=== PATIENT | male | born 1950 | race Caucasian/White ===

== ENCOUNTER 2020-12-20 09:25 | Inpatient (IN) | payer MEDICARE, OTHER ==
[2020-12-20] MEDS ORDERED: METOPROLOL TARTRATE 5 MG/5 ML INJ IV ONE (09:52)
[2020-12-20 10:23] LABS: Protime INR 1.34
[2020-12-20 10:26] LABS: Absolute Lymphocytes (CBC) 1.3 K/uL (0.7-4.9); Basophils % 1.1 % (0-1.3); Hematocrit 25.1 % (39.6-49.0); Lymphocytes % 23.4 % (15.3-44.8); MPV 7.5 fL (7.6-11.3); RBC Red Blood Cell Count 2.64 M/uL (4.33-5.43)
[2020-12-20 10:51] LABS: ALT/SGPT 35 U/L (12-78); AST/SGOT 77 U/L (15-37); Alkaline Phosphatase 65 U/L (45-117); BUN Blood Urea Nitrogen 23 mg/dL (7-18); Bicarbonate 23 mmol/L (21-32); Bilirubin Direct 0.7 mg/dL (0-0.2); Bilirubin Total 1.6 mg/dL (0.2-1.0); Glucose Level 85 mg/dL (74-106); NT PRO-BNP 153 pg/mL (<125); Potassium 4.7 mmol/L (3.5-5.1); Protein, Total 8.4 g/dL (6.4-8.2); Sodium Level 128 mmol/L (136-145); Troponin (Emerg Dept Use Only) < 0.02 ng/mL (0.0-0.045)
[2020-12-20] MEDS ORDERED: METOPROLOL TAR 25 MG TAB ONE (11:03)
[2020-12-20] MEDS ORDERED: DIGOXIN 0.25 MG/ML AMP ONE (11:12)
[2020-12-20] MEDS ORDERED: NA CHLORIDE 0.9% 500 ML ONE (11:13)
--- NOTE | 2020-12-20 11:22 | RAD REPORT ---
EXAM DESCRIPTION: RAD - Chest Single View - 12/20/2020 11:10 am CLINICAL HISTORY: ABDOMINAL DISTENTION Chest pain. COMPARISON: No comparisons FINDINGS: Portable technique limits examination quality. Mild interstitial pulmonary edema is seen. Linear opacities in the left lung base laterally probably represent atelectasis. The heart is prominent in size. A large hiatal hernia is likely present appear No displaced fractures.
--- NOTE | 2020-12-20 12:18 | EDPHYS ---
Physician Documentation [facility] Name: Sathya Ashby Age: 70 yrs Sex: Male : 1950 Arrival Date: 12/20/2020 Time: 09:40 Bed 8 Private MD: ED Physician Darnell Galicia HPI: 12/20 09:45 This 70 yrs old Male presents to ER via EMS with complaints of Shortness of cp Breath. 09:45 The patient has shortness of breath at rest. Onset: The symptoms/episode began/occurred cp gradually. Duration: The symptoms are continuous, and are steadily getting worse. The patient presents with abdominal distention that is diffuse. Onset: The symptoms/episode began/occurred gradually. Associated signs and symptoms: Pertinent negatives: chest pain, fever, vomiting. 09:45 Patient admits to not taking prescribed meds for the past month due to running out of cp prescribed Metoprolol and not being able to get samples of Eliquis. reports patient has been taking only OTC aspirin. Historical: - Allergies: 09:45 Darvocet-N 100; jt3 - Home Meds: 09:46 Unable to obtain [Active]; jt3 - PMHx: 09:45 Atrial fibrillation; jt3 09:46 Hypercholesterolemia; Hypertensive disorder; jt3 - Immunization history:: Adult Immunizations unknown. - Social history:: Smoking status: Patient denies any tobacco usage or history of. ROS: 09:50 Constitutional: Negative for body aches, chills, fever, poor PO intake. cp 09:50 Eyes: Negative for injury, pain, redness, and discharge. cp 09:50 ENT: Negative for ear pain, sore throat, difficulty swallowing, difficulty handling secretions. 09:50 Cardiovascular: Positive for edema, Negative for chest pain. 09:50 Respiratory: Positive for shortness of breath, at rest. Negative for cough, wheezing. 09:50 Abdomen/GI: Positive for abdominal distension, Negative for abdominal pain, vomiting, diarrhea, black/tarry stool, rectal bleeding. 09:50 Back: Negative for radiated pain. 09:50 Skin: Negative for cellulitis, rash. 09:50 Neuro: Negative for altered mental status, dizziness, headache, loss of consciousness, syncope, weakness. 09:50 All other systems are negative. Exam: 09:48 ECG was reviewed by the Attending Physician. cp 09:55 Constitutional: The patient appears in no acute distress, alert, awake, cp non-diaphoretic, non-toxic, well developed, well nourished, uncomfortable. 09:55 Head/Face: Normocephalic, atraumatic. cp 09:55 Eyes: Periorbital structures: appear normal, Pupils: equal, round, and reactive to light and accomodation, Extraocular movements: intact throughout, Conjunctiva: normal, no exudate, no injection, Sclera: no appreciated abnormality, Lids and lashes: appear normal, bilaterally. 09:55 ENT: External ear(s): are unremarkable, Nose: is normal, Mouth: Lips: dry, Oral mucosa: dry, Posterior pharynx: Airway: no evidence of obstruction, patent. 09:55 Neck: ROM/movement: is normal, is supple, without pain, no range of motions limitations, no meningismus. 09:55 Chest/axilla: Inspection: normal, Palpation: is normal, no crepitus, no tenderness. 09:55 Cardiovascular: Rate: tachycardic, Rhythm: irregular, Edema: ankle edema, that is moderate, JVD: is not appreciated. 09:55 Respiratory: the patient does not display signs of respiratory distress, Respirations: labored breathing, is not present, intercostal retractions, are absent, shallow respirations, that is mild, Breath sounds: decreased breath sounds, that are mild, diffuse, stridor, is not appreciated, wheezing: is not appreciated. 09:55 Abdomen/GI: Inspection: distension, that is severe, Bowel sounds: active, all quadrants, Palpation: abdomen is soft and non-tender, in all quadrants, rebound tenderness, is not appreciated, involuntary guarding, is not appreciated, Rectal exam: Stool: brown, guaiac negative, hemorrhoid(s), external, without bleeding, without inflammation. 09:55 Back: pain, is absent, ROM is normal. 09:55 Skin: cellulitis, is not appreciated, no rash present. 09:55 Neuro: Orientation: to person, place \\T\\ time. Mentation: is normal, Motor: moves all fours, strength is normal, Sensation: no obvious gross deficits. 10:43 ECG was reviewed by the Attending Physician. cp Vital Signs: 09:42 BP 129 / 87; Pulse 143; Resp 20; Temp 97.1; Pulse Ox 98% on 2 lpm NC; Weight 77.11 kg jt3 (R); 10:03 BP 105 / 85; Pulse 124; Resp 17; Pulse Ox 97% on R/A; jt3 10:15 BP 89 / 64; Pulse 111; jt3 10:19 BP 99 / 82; Pulse 109; Resp 20; Pulse Ox 100% on 2 lpm NC; jt3 10:26 BP 103 / 69; Pulse 104; Pulse Ox 96% 2 lpm ; jt3 11:08 BP 100 / 79; Pulse 124; Resp 18; Pulse Ox 98% ; jt3 12:29 BP 130 / 101; Pulse 113; Resp 20; Pulse Ox 100% on 2 lpm NC; jt3 13:37 BP 109 / 71; Pulse 107; Resp 17; Pulse Ox 98% on 2 lpm NC; jt3 14:35 BP 142 / 101; Pulse 90; Resp 13; Pulse Ox 99% on 2 lpm NC; jt3 MDM: 09:43 Patient medically screened. cp 10:00 Differential diagnosis: CHF exacerbation, Chronic Obstructive Pulmonary Disease cp Myocardial Infarction pneumonia, pulmonary edema, pancreatitis, urinary tract infection. 12:15 Data reviewed: vital signs, nurses notes, lab test result(s), EKG, radiologic studies, cp plain films. 12:15 Test interpretation: by ED physician or midlevel provider: ECG, plain radiologic cp studies. Counseling: I had a detailed discussion with the patient and/or guardian regarding: the historical points, exam findings, and any diagnostic results supporting the discharge/admit diagnosis, lab results, radiology results, the need for further work-up and treatment in the hospital. Physician consultation: Shreyas Mccann DO was called at 12:15, was contacted at 12:15, regarding admission, to the telemetry unit. patient's condition, and will see patient in ED, shortly. 12/20 09:42 Order name: Basic Metabolic Panel; Complete Time: 10:52 cp 11 10:52 Interpretation: Normal except: NA 128; CL 97; BUN 23; CRE 1.53; GFR 45. cp 12/20 09:42 Order name: CBC with Diff; Complete Time: 10:52 cp 12/20 11:06 Interpretation: Normal except: RBC 2.64; HGB 8.4; HCT 25.1; MCV 95.0; MCH 31.8; RDW cp 17.8; MPV 7.5. 12/20 09:42 Order name: LFT's; Complete Time: 10:52 12/20 11:32 Interpretation: Normal except: AST 77; BILIT 1.6; BILID 0.7; TP 8.4; ALB 2.0; GLOB 6.4; cp A/G 0.3. 12/20 09:42 Order name: Magnesium; Complete Time: 10:52 12/20 09:42 Order name: NT PRO-BNP; Complete Time: 10:52 12/20 09:42 Order name: PT-INR; Complete Time: 10:52 12/20 11:41 Interpretation: Abnormal: PT 15.4; INR <p>1.34</p>. 12/20 09:42 Order name: Troponin (emerg Dept Use Only); Complete Time: 10:52 12/20 09:42 Order name: Lactate; Complete Time: 11:06 12/20 11:41 Interpretation: Abnormal: LAC 2.6. 12/20 09:42 Order name: Procalcitonin; Complete Time: 11:32 12/20 09:42 Order name: Blood Culture Adult (2) 12/20 09:42 Order name: AMMONIA 12/20 11:44 Order name: SARS-COV-2 RT PCR (Document "Date of Onset" if Symptomatic); Complete Time: iw 13:59 12/20 12:07 Order name: Urine Microscopic Only; Complete Time: 13:59 12/20 13:59 Interpretation: Normal except: URBC 5-10. 12/20 09:42 Order name: XRAY Chest (1 view); Complete Time: 11:32 12/20 11:32 Interpretation: Report review. 12/20 09:42 Order name: EKG; Complete Time: 09:43 12/20 09:42 Order name: Cardiac monitoring; Complete Time: 09:50 12/20 09:42 Order name: EKG - Nurse/Tech; Complete Time: 09:50 12/20 09:42 Order name: IV Saline Lock; Complete Time: 09:50 12/20 09:42 Order name: Labs collected and sent; Complete Time: 09:50 11/09 09:42 Order name: O2 Per Protocol; Complete Time: 09:50 cp 12/20 11:23 Order name: US Extremity Venous W Compression Deepak; Complete Time: 12:34 cp 12/20 12:19 Order name: Urine Dipstick-Ancillary; Complete Time: 12:34 EDMS 12/20 12:34 Order name: CT Head Brain wo Cont; Complete Time: 13:59 cp 12/20 12:34 Order name: CT Chest Abdomen Pelvis W/O Contrast; Complete Time: 13:59 cp 12/20 09:42 Order name: O2 Sat Monitoring; Complete Time: 09:50 cp 12/20 11:09 Order name: Cath; Complete Time: 11:46 cp 12/20 12:07 Order name: Urine Dipstick-Ancillary (obtain specimen); Complete Time: 12:21 cp EC:48 Rate is 158 beats/min. Rhythm is irregular. QRS interval is normal. QT interval is cp normal. Interpreted by me. Reviewed by me. 10:43 Rate is 108 beats/min. Rhythm is irregular. QRS interval is normal. QT interval is cp normal. Interpreted by me. Reviewed by me. Administered Medications: 09:58 Drug: Lopressor (metoprolol) 2.5 mg Route: IVP; Site: left hand; jt3 10:11 Drug: Lopressor (metoprolol) 2.5 mg Route: IVP; Site: right hand; jt3 11:18 Not Given (Per Fercho Page PA. do not digoxin. ): Digoxin 0.5 mg IVP once jt3 11:25 Drug: Lopressor (metoprolol) 2.5 mg Route: IVP; Site: right hand; jt3 11:29 Drug: Metoprolol 25 mg Route: PO; jt3 11:29 Drug: NS 0.9% 500 ml Route: IV; Rate: bolus; Site: right hand; jt3 12:12 Not Given (Physician Discretion): NS 0.9% 500 ml IV at 500 ml/hr continuous cp Disposition: 16:20 Co-signature as Attending Physician, Darnell Galicia MD. pkl Disposition Summary: 12/20/20 12:17 Hospitalization Ordered Hospitalization Status: Inpatient Admission cp Provider: Shreyas Mccann cp Location: Telemetry/[facility] (Inpatient) cp Condition: Stable cp Problem: new cp Symptoms: have improved cp Bed/Room Type: Standard cp Room Assignment: cp Diagnosis - Chronic atrial fibrillation cp - Other cirrhosis of liver cp - Anemia, unspecified cp Forms: - Medication Reconciliation Form cp - SBAR form cp Signatures: Dispatcher [employer] EDDarnell Gaona MD MD pkl Fercho Schreiber PA PA cp Hebert Kidd RN RN jt3 Corrections: (The following items were deleted from the chart) 12:57 11:58 CORONAVIRUS+MR.LAB.BRZ ordered. EDMS EDMS
--- NOTE | 2020-12-20 12:18 | ER ---
Nurse's Notes [facility] Name: Sathya Ashby Age: 70 yrs Sex: Male : 1950 Arrival Date: 12/20/2020 Time: 09:40 Bed 8 Private MD: Diagnosis: Chronic atrial fibrillation;Other cirrhosis of liver;Anemia, unspecified Presentation: 12/20 09:42 Chief complaint: EMS states: Pt. arrives by EMS due to reports of dyspnea and new onset jt3 stomach, and pedal swelling. Pt. arrives with a HR of 155 and in afib with RVR. Past medical hx of hepatitis C. Pt. is non-compliant with his medications, including eliquis. Alert and oriented x4 on arrival . Coronavirus screen: Vaccine status: Patient reports being unvaccinated. Ebola Screen: Patient negative for fever greater than or equal to 101.5 degrees Fahrenheit, and additional compatible Ebola Virus Disease symptoms Patient denies exposure to infectious person. Patient denies travel to an Ebola-affected area in the 21 days before illness onset. Initial Sepsis Screen: Does the patient meet any 2 criteria? HR > 90 bpm. Does the patient have a suspected source of infection? No. Patient's initial sepsis screen is negative. Risk Assessment: Do you want to hurt yourself or someone else? Patient reports no desire to harm self or others. Onset of symptoms was December 19, 2020. 09:42 Method Of Arrival: EMS: [facility] jt3 09:42 Acuity: YUE 2 jt3 Triage Assessment: 09:46 General: Appears in no apparent distress. Behavior is calm, cooperative. Pain: jt3 Complains of pain in Generalized pain all over per patient report. Historical: - Allergies: 09:45 Darvocet-N 100; jt3 - Home Meds: 09:46 Unable to obtain [Active]; jt3 - PMHx: 09:45 Atrial fibrillation; jt3 09:46 Hypercholesterolemia; Hypertensive disorder; jt3 - Immunization history:: Adult Immunizations unknown. - Social history:: Smoking status: Patient denies any tobacco usage or history of. Screenin:48 Abuse screen: Denies threats or abuse. Denies injuries from another. Nutritional jt3 screening: No deficits noted. Tuberculosis screening: No symptoms or risk factors identified. Fall Risk None identified. Assessment: 09:48 Cardiovascular: Rhythm is atrial fibrillation with rapid ventricular response. jt3 Respiratory: Reports shortness of breath at rest on exertion. 10:03 Reassessment: Dose 1 of IV metolprolol 2.5mg given at 0958.. jt3 10:20 Reassessment: Dose 2 of IV metoprolol 2.5mg given at 1011. . jt3 10:24 GI: Abdomen is distended, noted to have ascites. jt3 10:43 Reassessment: Per Fercho Schreiber, do not give 3rd dose of IV metoprolol. Repeat EKG done jt3 and given to Fercho VASQUEZ. . 10:45 Respiratory: Breath sounds are diminished bilaterally. jt3 Vital Signs: 09:42 BP 129 / 87; Pulse 143; Resp 20; Temp 97.1; Pulse Ox 98% on 2 lpm NC; Weight 77.11 kg jt3 (R); 10:03 BP 105 / 85; Pulse 124; Resp 17; Pulse Ox 97% on R/A; jt3 10:15 BP 89 / 64; Pulse 111; jt3 10:19 BP 99 / 82; Pulse 109; Resp 20; Pulse Ox 100% on 2 lpm NC; jt3 10:26 BP 103 / 69; Pulse 104; Pulse Ox 96% 2 lpm ; jt3 11:08 BP 100 / 79; Pulse 124; Resp 18; Pulse Ox 98% ; jt3 12:29 BP 130 / 101; Pulse 113; Resp 20; Pulse Ox 100% on 2 lpm NC; jt3 13:37 BP 109 / 71; Pulse 107; Resp 17; Pulse Ox 98% on 2 lpm NC; jt3 14:35 BP 142 / 101; Pulse 90; Resp 13; Pulse Ox 99% on 2 lpm NC; jt3 ED Course: 09:40 Patient arrived in ED. iw 09:41 Fercho Schreiber PA is PHCP. cp 09:41 Darnell Galicia MD is Attending Physician. cp 09:42 Hebert Kidd, LYNETTE is Primary Nurse. jt3 09:45 Triage completed. jt3 09:46 Arm band placed on right wrist. EKG completed in triage. Results shown to MD. EKG jt3 completed in triage. Results shown to MD. 09:48 Patient has correct armband on for positive identification. Bed in low position. Call jt3 light in reach. Side rails up X2. 09:48 No provider procedures requiring assistance completed. Inserted saline lock: 18 gauge jt3 in left antecubital area, using aseptic technique. Blood collected. 10:07 Inserted saline lock: 22 gauge in right hand, using aseptic technique. jt3 10:44 EKG done, by ED staff. jt3 11:10 XRAY Chest (1 view) In Process Unspecified. EDMS 12:14 Shreyas Mccann DO is Hospitalizing Provider. cp 12:21 US Extremity Venous W Compression Deepak In Process Unspecified. EDMS 12:28 Suárez cath inserted, using sterile technique, 16 Fr., by ED staff, balloon inflated, to jt3 gravity drainage, urine specimen collected. other Suárez catheter put in by Talia OJEDA. Urine sample obtained. 12:56 CT Head Brain wo Cont In Process Unspecified. EDMS 12:56 CT Chest Abdomen Pelvis W/O Contrast In Process Unspecified. EDMS Administered Medications: 09:58 Drug: Lopressor (metoprolol) 2.5 mg Route: IVP; Site: left hand; jt3 10:11 Drug: Lopressor (metoprolol) 2.5 mg Route: IVP; Site: right hand; jt3 11:18 Not Given (Per Fercho VASQUEZ. do not digoxin. ): Digoxin 0.5 mg IVP once jt3 11:25 Drug: Lopressor (metoprolol) 2.5 mg Route: IVP; Site: right hand; jt3 11:29 Drug: Metoprolol 25 mg Route: PO; jt3 11:29 Drug: NS 0.9% 500 ml Route: IV; Rate: bolus; Site: right hand; jt3 12:12 Not Given (Physician Discretion): NS 0.9% 500 ml IV at 500 ml/hr continuous cp Outcome: 12:17 Decision to Hospitalize by Provider. cp 14:47 Patient left the ED. jt3 Signatures: Dispatcher [employer] EDMS Becca Hector RN RN iw Page, Corey, PA PA cp Hebert Kidd RN RN jt3 Corrections: (The following items were deleted from the chart) 10:42 10:41 Lopressor (metoprolol) 2.5 mg IVP in right hand jt3 jt3
[2020-12-20 12:19] LABS: Urine Blood 2+ (Negative); Urine Glucose Negative (Negative); Urine Protein Negative (Negative)
--- NOTE | 2020-12-20 12:32 | RAD REPORT ---
EXAM DESCRIPTION: US - Extrem Venous W Compress Deepak - 12/20/2020 12:22 pm CLINICAL HISTORY: SWELLING Bilateral leg edema and swelling. COMPARISON: Lower Extremity Arterial Bilat dated 09/17/2017 TECHNIQUE: Real-time sonographic interrogation of the left and right lower extremity deep venous sys tems was performed. FINDINGS: Normal compressibility, flow augmentation, phasic flow and spontaneous flow is identified in both the left and right lower extremity deep venous systems. 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 IMPRESSION: No sonographic evidence of left or right lower extremity deep venous thrombosis.
[2020-12-20 12:44] LABS: Urine Bacteria <20 /HPF (NONE SEEN)
--- NOTE | 2020-12-20 13:09 | RAD REPORT ---
EXAM DESCRIPTION: CT - Head Brain Wo Cont - 12/20/2020 12:56 pm CLINICAL HISTORY: SLURRED SPEECH COMPARISON: Chest Abd Pelvis Wo Con dated 12/20/2020 TECHNIQUE: Axial 5 mm thick images of the head were obtained without IV contrast. All CT scans are performed using dose optimization technique as appropriate and may include automated exposure control or mA/KV adjustment according to patient size. FINDINGS: No intracranial hemorrhage, mass, edema or shift of mid-line structures. No acute cortical based infarction identified. No cortical edema or sulcal effacement. Diminished attenuation the left external capsule and insular cortex region is most likely remote. There are scattered chronic ischem ic changes in the cerebral white matter. No abnormal extra-axial fluid collections. Mild to moderate for age atrophy changes are present. Ventricles are in proportion to the volume loss. Patient has den se arterial tree calcifications. Mastoid air cells and visualized portions of the paranasal sinuses are clear. No acute bony findings. IMPRESSION: No intracranial hemorrhage, mass or emergent intracranial CT finding. Atrophy and chronic ischemic changes are present with focal ischemic changes in the left external cap rosibel and insular cortex region. Chronic ischemic changes can mask nonhemorrhagic acute infarction. MR brain followup can be obtained if there is ongoing concern for acute ischemia.
--- NOTE | 2020-12-20 13:21 | RAD REPORT ---
EXAM DESCRIPTION: CT - Chest Abd Pelvis Wo Con - 12/20/2020 12:56 pm CLINICAL HISTORY: ABDOMINAL DISTENTION, chest pain COMPARISON: No comparisons TECHNIQUE: Axial 5 millimeter thick images of the chest, abdomen and pelvis were obtained without IV contrast. Oral contrast was administered. All CT scans are performed using dose optimization technique as appropriate and may include automated exposure control or mA/KV adjustment according to patient size. FINDINGS: Fibrotic stranding and atelectasis changes are present in the lung bases. An 11 millimeter nodular focus abuts the right diaphragmatic pleura. No clearly malignant mass seen in the chest. The re is an 8 centimeter thin-walled fluid collection in the medial right chest along the pleural margin . This extends from the hilum to the diaphragm. There is atelectasis along the lateral margin. Latera l left gutter atelectasis changes are present. Lateral lung base pneumonia is not excluded but lesser in likelihood. There is a trace amount of left pleural effusion. No pneumothorax. No pleural based m ass. No chest wall mass or abnormal axillary lymphadenopathy seen. Mediastinal and hilar regions sim w no mass or lymphadenopathy. No significant cardiac finding. Liver is small with the left lobe prominent relative to the right. There is a pronounced nodularity o f the liver capsule. A few parenchymal calcifications are present. This is an advanced cirrhotic live r pattern. No focal liver lesions seen though noncontrast imaging is diminished in sensitivity for le concepción detection. No biliary tree dilatation. Gallbladder is difficult to distinguish from the ascites. Dilatation of the gallbladder is not suspected. Numerous calcifications present in a normal size spl een. No focal splenic lesion on noncontrast imaging imaging . Pancreas is poorly visualized. Primary pancreatic process is not suspected. No hydronephrosis or suspicious renal mass. Isodense masses and pyelonephritis cannot be excluded on non contrast imaging. No adrenal abnormalities. Urinary bladder is fully contracted around a Suárez c atheter. No dilated bowel loops or focal ball bowel wall thickening. No free air or pneumatosis. Colonic dive rticulosis is present. Much of the bowel is isodense to the ascites. Posterior distal rectal wall anderson r the anus is poorly visualized. The oblique imaging angle through the distal rectum accentuates wall thickness. Patient has a very large volume of ascites filling the peritoneal cavity. No omental thickening seen. Fluid retention is present in the subcutaneous fatty tissues. No mass or bulky lymphadenopathy. Disc and bone degenerative changes are present not unremarkable for patient age. Dense arterial tree calcifications are present. IMPRESSION: Large volume of ascites present with advanced cirrhotic changes in the liver. No focal l iver lesions seen though sensitivity is limited in the absence of IV contrast. No bowel obstruction, free air or emergent CT chest, abdomen or pelvis finding. Additional nonacute findings detailed in the body of the report. CT abdomen and pelvis imaging shows no significant or suspicious finding.
--- NOTE | 2020-12-20 13:29 | P.HP ---
Certification for Inpatient Patient admitted to: Inpatient With expected LOS: >2 Midnights Patient will require the following post-hospital care: Care Home Practitioner: I am a practitioner with admitting privileges, knowledge of patient current condition, hospital course, and medical plan of care. Services: Services provided to patient in accordance with Admission requirements found in Title 42 Section 412.3 of the Code of Federal Regulations Patient History Date of Service: 12/20/20 Primary Care Provider: Dr. Baker; Cardiology-Dr. Rodrigez Reason for admission: Shortness of breath History of Present Illness: 70-year-old male with history of hepatitis C, GERD with hiatal hernia, hypertension, chronic renal disease, atrial fibrillation on chronic anticoagulation therapy, CAD with prior stent, peripheral vascular disease, and COPD. Patient presented with increasing shortness of breath. This has been ongoing but worse over the past several days. He has been having increased weakness and shortness of breath with exertion. Patient admits that he has been without medication for quite some time. He has not followed up with his PCP or cardiology in over a year. This has been difficult to get his medications. Patient previously on metoprolol, Eliquis, Lasix, hydrochlorothiazide, Lipitor, levothyroxine and lorazepam. reports some slurred speech this morning but this resolved quickly. Increase palpitations noted. He came to the ER for further evaluation. In the ER patient was evaluated. Patient found to have atrial fibrillation with RVR with rate in the 150s. Patient given IV metoprolol with improvement. Patient found to be very ascitic with anasarca. Patient given IV Lasix in the emergency room. White count 5.4, hemoglobin 8.4. Plate count 159. Sodium 128, potassium 4.7. BUN of 23, creatinine 1.53 with a GFR 45. Glucose 85. Total bilirubin 1.6, AST 77. ALT 35. Troponin negative. Procalcitonin negative. CT head showed no acute abnormality. Chest x-ray showed pulmonary edema. Venous Doppler was negative. Patient was admitted for treatment. Patient admits not taking medication for quite some time. He has not followed up closely with nephrology or cardiology. Allergies acetaminophen [From Darvocet-N 100] Allergy (Verified 12/20/20 13:04) Rash propoxyphene [From Darvocet-N 100] Allergy (Verified 12/20/20 13:04) Rash - Past Medical/Surgical History -: Hypertension -: Hyperlipidemia -: Hepatitis C -: Atrial fibrillation on chronic anticoagulation therapy -: CHF -: Liver cirrhosis -: Peripheral vascular disease with prior bypass -: CAD with prior LAD stent -: LAD stent -: Bypass to the left femoral artery -: Hernia repair Psychosocial/ Personal History: Lives at home with - Family History Family History: Reviewed- Non-Contributory - Social History Smoking Status: Former smoker Alcohol use: No CD- Drugs: No Caffeine use: No Place of Residence: Home Review of Systems General: Weakness, Malaise, As per HPI Eyes: Unremarkable ENT: Unremarkable Respiratory: Shortness of Breath, SOB with Excertion, As per HPI Cardiovascular: Edema, As per HPI Gastrointestinal: Unremarkable Genitourinary: Unremarkable Musculoskeletal: Pedal edema, As per HPI Integumentary: Unremarkable Neurological: Weakness, As per HPI Lymphatics: Unremarkable Physical Examination - Studies Laboratory Data (last 24 hrs) 12/20/20 09:48: PT 15.4 H, INR 1.34 12/20/20 09:48: WBC 5.40, Hgb 8.4 L, Hct 25.1 L, Plt Count 159 12/20/20 09:48: Sodium 128 L, Potassium 4.7, BUN 23 H, Creatinine 1.53 H, Glucose 85, Magnesium 2.0, Total Bilirubin 1.6 H, AST 77 H, ALT 35, Alkaline Phosphatase 65 Assessment and Plan - Plan COVID: pending Chest x-ray: COMPARISON: No comparisons FINDINGS: Portable technique limits examination quality. Mild interstitial pulmonary edema is seen. Linear opacities in the left lung base laterally probably represent atelectasis. The heart is prominent in size. A large hiatal hernia is likely present appear No displaced fractures. Venous doppler: COMPARISON: Lower Extremity Arterial Bilat dated 09/17/2017 TECHNIQUE: Real-time sonographic interrogation of the left and right lower extremity deep venous systems was performed. FINDINGS: Normal compressibility, flow augmentation, phasic flow and spontaneous flow is identified in both the left and right lower extremity deep venous systems. 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 IMPRESSION: No sonographic evidence of left or right lower extremity deep venous thrombosis. CT head: COMPARISON: Chest Abd Pelvis Wo Con dated 12/20/2020 TECHNIQUE: Axial 5 mm thick images of the head were obtained without IV contrast. All CT scans are performed using dose optimization technique as appropriate and may include automated exposure control or mA/KV adjustment according to patient size. FINDINGS: No intracranial hemorrhage, mass, edema or shift of mid-line structures. No acute cortical based infarction identified. No cortical edema or sulcal effacement. Diminished attenuation the left external capsule and insular cortex region is most likely remote. There are scattered chronic ischemic changes in the cerebral white matter. No abnormal extra-axial fluid collections. Mild to moderate for age atrophy changes are present. Ventricles are in proportion to the volume loss. Patient has dense arterial tree calcifications. Mastoid air cells and visualized portions of the paranasal sinuses are clear. No acute bony findings. IMPRESSION: No intracranial hemorrhage, mass or emergent intracranial CT finding. Atrophy and chronic ischemic changes are present with focal ischemic changes in the left external capsule and insular cortex region. Chronic ischemic changes can mask nonhemorrhagic acute infarction. MR brain followup can be obtained if there is ongoing concern for acute ischemia. CT chest/abdomen and pelvis: pending Physical Exam: GENERAL: Patient appears older than his stated age. Patient alert and cooperative. Currently on nasal cannula. VITAL SIGNS: Reviewed HEENT: Head is normocephalic and atraumatic. Extraocular muscles are intact. Pupils are equal, round, and reactive to light and accommodation. Nares appeared normal. Mouth is well hydrated and without lesions. Mucous membranes are moist. NECK: Supple. No carotid bruits. No lymphadenopathy or thyromegaly. LUNGS: Decreased bilateral. Some crackles to the bases. HEART: Atrial fibrillation rate around 100-110 ABDOMEN: Significant ascites noted. EXTREMITIES: Significant anasarca and 2+ pitting edema to the lower extremities up to the thigh region NEUROLOGIC: Patient alert, cooperative. No focal deficits. No slurred speech. SKIN: As above. Significant edema to the lower extremity. Impression: Dyspnea secondary to acute on chronic CHF likely diastolic versus systolic complicated with anasarca and atrial fibrillation with RVR on chronic anticoagulation therapy Hepatitis C with suspected cirrhosis complicated with significant anasarca and lower extremity edema Acute on chronic renal disease stage III with hyponatremia Anemia of chronic disease Hypertension Hyperlipidemia CAD with prior stent Hypothyroidism Anxiety Slurred speech Peripheral vascular disease with history of bypass Noncompliance with follow-up and medication Plan: Dyspnea secondary to acute on chronic CHF likely diastolic versus systolic complicated with anasarca and atrial fibrillation with RVR on chronic anticoagulation therapy: Patient will be made for further evaluation and treatment. We will keep the patient in ICU for now. Will start Lasix 40 mg IV 3 times a day. Continue with 1500 cc/day fluid restriction. Will monitor closely. Renal diet is to continue. Will obtain echocardiogram to further evaluate his condition. Continue with metoprolol for rate control. Rate better controlled in the ER. Cardiology consulted to further evaluate and address. Recheck chest x-ray tomorrow. Wean off oxygen. Patient may require home oxygen at discharge. Will need to consider plan of care which may include skilled placement at discharge. Continue with below recommendations with nephrology, GI and paracentesis. Patient with history of noncompliance in the past. Compliance will be addressed in detail concerning medications and follow-up. Will restart Eliquis after paracentesis tomorrow. We will continue to discuss plan of care with patient. Hepatitis C with suspected cirrhosis complicated with significant anasarca and lower extremity edema: We will consult GI tomorrow to further evaluate. Will arrange for radiology assisted ultrasound-guided paracentesis. Will need to remove no more than 2 L of fluid. Will give albumin after paracentesis. We will send fluid for analysis. Await recommendations from GI. Acute on chronic renal disease stage III with hyponatremia: Suárez catheter in place for strict input and output. Nephrology consulted. Continue with diuresis. We will monitor this closely. Await further recommendations from nephrology. Anemia of chronic disease: Will monitor hemoglobin. Will check iron and B12 studies. Hypertension: Continue with metoprolol. Will monitor and adjust appropriately. Hyperlipidemia: Continue with Lipitor. Will check fasting lipid panel. CAD with prior stent: We will monitor cardiac enzymes and telemetry. Continue with metoprolol and Eliquis. Hypothyroidism: Continue levothyroxine 50 mcg daily. Will check TSH and free T4. Anxiety: We will provide medication as needed Slurred speech: Resolved CT scan shows no evidence of stroke, patient is at risk for stroke. Continue with above plan of care. Peripheral vascular disease with history of bypass: Continue with Eliquis. Noncompliance with follow-up and medication: Compliance with medication and follow-up addressed in detail. Will make sure patient is able to afford all his medications. Will need to make sure patient has close follow-up at discharge. Code Status: Full Code DVT prophylaxis: Eliquis Advanced Care Planning-30 minutes: Need to consider skilled placement versus home at discharge. Will reassess tomorrow. Discharge Plan: Home Plan to discharge in: Greater than 2 days - Advance Directives Does patient have a Living Will: No Does patient have a Durable POA for Healthcare: No - Code Status/Comfort Care Code Status Assessed: Yes (Full code) Time Spent Managing Pts Care (In Minutes): 55
[2020-12-20] MEDS ORDERED: TRAMADOL HCL 50 MG TAB PO PRN (14:15)
[2020-12-20] MEDS ORDERED: ACETAMINOPHEN 500 MG TAB PO PRN (14:15)
[2020-12-20] MEDS ORDERED: IPRATROPIUM BROM 0.5MG/2.5ML NEB PRN (14:15)
[2020-12-20] MEDS ORDERED: METOPROLOL TARTRATE 5 MG/5 ML INJ IV PRN (14:15)
[2020-12-20] MEDS ORDERED: ONDANSETRON 4 MG/2 ML VIAL IV PRN (14:15)
[2020-12-20] MEDS ORDERED: LORAZEPAM 0.5 MG TABLET PO PRN (14:15)
[2020-12-20] MEDS ORDERED: PANTOPRAZOLE 40MG TABLET PO SCH (14:55)
[2020-12-20] MEDS ORDERED: PANTOPRAZOLE 40MG TABLET PO ONE (15:39)
[2020-12-20] MEDS ORDERED: HYDROCODONE/APAP 5/325 MG TAB ONE (16:02)
[2020-12-20] MEDS ORDERED: ONDANSETRON 4 MG/2 ML VIAL ONE (16:02)
[2020-12-20] MEDS: HYDROCODONE/APAP 5/325 MG TAB PO PRN (16:08)
[2020-12-20] MEDS ORDERED: FUROSEMIDE 20 MG/ 2ML VIAL ONE (17:00)
[2020-12-20 17:24] LABS: CKMB Creatine Kinase MB 6.7 ng/mL (1.0-3.6); Creatine Phosphokinase 137 U/L (39-308); Troponin I < 0.02 ng/mL (0.0-0.045)
[2020-12-20] MEDS: SUCRALFATE 1GM/10ML UCUP FT SCH ×2 (17:37→21:07)
[2020-12-20] MEDS: FUROSEMIDE 40 MG/4 ML VIAL IV SCH (17:37)
[2020-12-20] MEDS ORDERED: HYDROMORPHONE HCL 0.5 MG/0.5 ML INJ ONE (18:54)
[2020-12-20] MEDS: HYDROMORPHONE HCL 0.5 MG/0.5 ML INJ IV PRN (18:56)
[2020-12-20] MEDS ORDERED: ARFORMOTEROL TARTRATE 15 MCG/2 ML VIAL.NEB ONE (19:27)
[2020-12-20] MEDS: ARFORMOTEROL TARTRATE 15 MCG/2 ML VIAL.NEB NEB SCH (19:35)
[2020-12-20 20:26] LABS: CKMB Creatine Kinase MB 6.3 ng/mL (1.0-3.6)
[2020-12-20] MEDS ORDERED: METOPROLOL TAR 50 MG TAB ONE (20:55)
[2020-12-20] MEDS ORDERED: ATORVASTATIN 20 MG TAB ONE (20:56)
[2020-12-20] MEDS ORDERED: METOPROLOL TAR 50 MG TAB PO SCH (21:00)
[2020-12-20] MEDS: ATORVASTATIN 40 MG TAB PO SCH (21:00)
[2020-12-21] MEDS ORDERED: FUROSEMIDE 40 MG/4 ML VIAL ONE (02:20)
[2020-12-21] MEDS: FUROSEMIDE 40 MG/4 ML VIAL IV SCH (02:21)
[2020-12-21] MEDS ORDERED: HYDROMORPHONE HCL 0.5 MG/0.5 ML INJ ONE ×2 (03:16→19:07)
[2020-12-21] MEDS: HYDROMORPHONE HCL 0.5 MG/0.5 ML INJ IV PRN ×2 (03:17→19:15)
[2020-12-21 04:29] LABS: Absolute Lymphocytes (CBC) 0.7 K/uL (0.7-4.9); Basophils % 0.6 % (0-1.3); Hematocrit 23.2 % (39.6-49.0); Lymphocytes % 11.1 % (15.3-44.8); MPV 7.7 fL (7.6-11.3); RBC Red Blood Cell Count 2.43 M/uL (4.33-5.43)
[2020-12-21 04:56] LABS: Albumin 1.7 g/dL (3.4-5.0); Bilirubin Total 1.9 mg/dL (0.2-1.0); Phosphorus 5.5 mg/dL (2.5-4.9); Potassium 5.3 mmol/L (3.5-5.1); Uric Acid 8.5 mg/dL (3.5-7.2)
[2020-12-21 04:57] LABS: Thyroid Stimulating Hormone 14.8 uIU/mL (0.360-3.740)
[2020-12-21 05:00] LABS: Urine Appearance CLEAR (Clear); Urine Bilirubin NEGATIVE (Negative); Urine Blood 2+ (Negative); Urine Color YELLOW (Yellow); Urine Glucose NEGATIVE (Negative); Urine Protein NEGATIVE (Negative); Urine Urobilinogen 0.2 mg/dL (0.2-1.0)
[2020-12-21 05:09] LABS: UR PROTEIN 18.6 mg/dL (<11.9); Urine Protein/Creatinine Ratio 0.26 ratio (<0.15)
[2020-12-21 05:34] LABS: Urine Bacteria <20 /HPF (NONE SEEN)
[2020-12-21] MEDS: LEVOTHYROXINE SOD 0.05 MG TABLET PO SCH (05:58)
--- NOTE | 2020-12-21 06:18 | P.PN ---
Subjective Date of Service: 12/21/20 Primary Care Provider: Dr. Baker; Cardiology-Dr. Rodrigez Chief Complaint: Shortness of breath Subjective: Other (BP is low this am. Currently on 2 Liter per nasal canula. Reports increased fatigue.) Physical Examination - Vital Signs Temperature: 97.7 F Blood Pressure: 78/55 Pulse: 113 Respirations: 6 Pulse Ox (%): 97 - Studies Laboratory Data (last 24 hrs) 12/20/20 09:48: PT 15.4 H, INR 1.34 12/20/20 09:48: WBC 5.40, Hgb 8.4 L, Hct 25.1 L, Plt Count 159 12/20/20 09:48: Sodium 128 L, Potassium 4.7, BUN 23 H, Creatinine 1.53 H, Glucose 85, Magnesium 2.0, Total Bilirubin 1.6 H, AST 77 H, ALT 35, Alkaline Phosphatase 65 Assessment & Plan Discharge Plan: Other (SNF vs Home) Plan to discharge in: Greater than 2 days Physician Review Additional Text: COVID: negative Chest x-ray: COMPARISON: No comparisons FINDINGS: Portable technique limits examination quality. Mild interstitial pulmonary edema is seen. Linear opacities in the left lung base laterally probably represent atelectasis. The heart is prominent in size. A large hiatal hernia is likely present appear No displaced fractures. Venous doppler: COMPARISON: Lower Extremity Arterial Bilat dated 09/17/2017 TECHNIQUE: Real-time sonographic interrogation of the left and right lower extremity deep venous systems was performed. FINDINGS: Normal compressibility, flow augmentation, phasic flow and spontaneous flow is identified in both the left and right lower extremity deep venous systems. 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 IMPRESSION: No sonographic evidence of left or right lower extremity deep venous thrombosis. CT head: COMPARISON: Chest Abd Pelvis Wo Con dated 12/20/2020 TECHNIQUE: Axial 5 mm thick images of the head were obtained without IV contrast. All CT scans are performed using dose optimization technique as appropriate and may include automated exposure control or mA/KV adjustment according to patient size. FINDINGS: No intracranial hemorrhage, mass, edema or shift of mid-line structures. No acute cortical based infarction identified. No cortical edema or sulcal effacement. Diminished attenuation the left external capsule and insular cortex region is most likely remote. There are scattered chronic ischemic changes in the cerebral white matter. No abnormal extra-axial fluid collections. Mild to moderate for age atrophy changes are present. Ventricles are in proportion to the volume loss. Patient has dense arterial tree calcifications. Mastoid air cells and visualized portions of the paranasal sinuses are clear. No acute bony findings. IMPRESSION: No intracranial hemorrhage, mass or emergent intracranial CT finding. Atrophy and chronic ischemic changes are present with focal ischemic changes in the left external capsule and insular cortex region. Chronic ischemic changes can mask nonhemorrhagic acute infarction. MR brain followup can be obtained if there is ongoing concern for acute ischemia. CT chest/abdomen and pelvis: COMPARISON: No comparisons TECHNIQUE: Axial 5 millimeter thick images of the chest, abdomen and pelvis were obtained without IV contrast. Oral contrast was administered. All CT scans are performed using dose optimization technique as appropriate and may include automated exposure control or mA/KV adjustment according to patient size. FINDINGS: Fibrotic stranding and atelectasis changes are present in the lung bases. An 11 millimeter nodular focus abuts the right diaphragmatic pleura. No clearly malignant mass seen in the chest. There is an 8 centimeter thin-walled fluid collection in the medial right chest along the pleural margin. This extends from the hilum to the diaphragm. There is atelectasis along the lateral margin. Lateral left gutter atelectasis changes are present. Lateral lung base pneumonia is not excluded but lesser in likelihood. There is a trace amount of left pleural effusion. No pneumothorax. No pleural based mass. No chest wall mass or abnormal axillary lymphadenopathy seen. Mediastinal and hilar regions show no mass or lymphadenopathy. No significant cardiac finding. Liver is small with the left lobe prominent relative to the right. There is a pronounced nodularity of the liver capsule. A few parenchymal calcifications are present. This is an advanced cirrhotic liver pattern. No focal liver lesions seen though noncontrast imaging is diminished in sensitivity for lesion detection. No biliary tree dilatation. Gallbladder is difficult to distinguish from the ascites. Dilatation of the gallbladder is not suspected. Numerous calcifications present in a normal size spleen. No focal splenic lesion on noncontrast imaging imaging . Pancreas is poorly visualized. Primary pancreatic process is not suspected. No hydronephrosis or suspicious renal mass. Isodense masses and pyelonephritis cannot be excluded on non contrast imaging. No adrenal abnormalities. Urinary bladder is fully contracted around a Suárez catheter. No dilated bowel loops or focal ball bowel wall thickening. No free air or pneumatosis. Colonic diverticulosis is present. Much of the bowel is isodense to the ascites. Posterior distal rectal wall near the anus is poorly visualized. The oblique imaging angle through the distal rectum accentuates wall thickness. Patient has a very large volume of ascites filling the peritoneal cavity. No omental thickening seen. Fluid retention is present in the subcutaneous fatty tissues. No mass or bulky lymphadenopathy. Disc and bone degenerative changes are present not unremarkable for patient age. Dense arterial tree calcifications are present. IMPRESSION: Large volume of ascites present with advanced cirrhotic changes in the liver. No focal liver lesions seen though sensitivity is limited in the absence of IV contrast. No bowel obstruction, free air or emergent CT chest, abdomen or pelvis finding. Additional nonacute findings detailed in the body of the report. CT abdomen and pelvis imaging shows no significant or suspicious finding. Physical Exam: GENERAL: Patient appears older than his stated age. Patient alert and cooperative. Currently on nasal cannula. VITAL SIGNS: Reviewed. BP low this am. HEENT: neck supple LUNGS: Decreased bilateral. Clear anteriorly. HEART: Atrial fibrillation rate around 100-110 ABDOMEN: Significant ascites noted. EXTREMITIES: Significant anasarca and 2+ pitting edema to the lower extremities up to the thigh region NEUROLOGIC: Patient alert, cooperative. No focal deficits. No slurred speech. SKIN: As above. Significant edema to the lower extremity. Impression: Dyspnea secondary to acute on chronic CHF likely diastolic versus systolic complicated with anasarca, atrial fibrillation with RVR on chronic anticoagulation therapy, and Hypotension Hepatitis C with suspected cirrhosis complicated with significant anasarca and l ower extremity edema Acute on chronic renal disease stage III with hyponatremia Anemia of chronic disease Hypertension Hyperlipidemia CAD with prior stent Hypothyroidism Anxiety Slurred speech Peripheral vascular disease with history of bypass Noncompliance with follow-up and medication Plan: Dyspnea secondary to acute on chronic CHF likely diastolic versus systolic complicated with anasarca, atrial fibrillation with RVR on chronic anticoagulation therapy, and Hypotension: Patient with Hypotension. Poor urinary output noted. Remains on 2 L/min. I will give 250 cc NS bolus. I will also give Albumin 5% this am to help with his BP. I have decreased his Metoprolol to 25 mg BID with parameter to hold if BP sys less than 110. May need to consider Levophed IV drip to maintain MAP of 65 if BP remains low. Patient remains in Atrial fibrillation, rate better. Hold Lasix at this time until BP is improved. Will need to discuss with Cardiology and Nephrology. Will obtain echocardiogram to further evaluate his condition. Patient will get paracentesis today. Will also consult GI. Patient with history of noncompliance in the past. Compliance will be addressed in detail concerning medications and follow-up. Will restart Eliquis after paracentesis today. We will continue to discuss plan of care with patient. Hepatitis C with suspected cirrhosis complicated with significant anasarca and lower extremity edema: Consult GI today for recommendations. Will arrange for radiology assisted ultrasound-guided paracentesis. Will need to remove no more than 2 L of fluid. Will give albumin after paracentesis. We will send fluid for analysis. Await recommendations from GI. Acute on chronic renal disease stage III with hyponatremia: Suárez catheter in place for strict input and output. Poor urinary output. HOLD lasix for now. Nephrology consulted. Fluid to be given. Await further recommendations from nephrology. Anemia of chronic disease: H/H is low. Will transfuse one unit of blood. Will continue to monitor hemoglobin. Will check iron and B12 studies. Hypertension: Decrease metoprolol with parameters in place. Will monitor and adjust appropriately. Hyperlipidemia: Continue with Lipitor. Will check fasting lipid panel. CAD with prior stent: We will monitor cardiac enzymes and telemetry. Continue with metoprolol and Eliquis. Hypothyroidism: Continue levothyroxine 50 mcg daily. He has not been taking his medication. Will check TSH and free T4. Anxiety: We will provide medication as needed Slurred speech: Resolved CT scan shows no evidence of stroke, patient is at risk for stroke. Continue with above plan of care. Peripheral vascular disease with history of bypass: Continue with Eliquis. Noncompliance with follow-up and medication: Compliance with medication and follow-up addressed in detail. Will make sure patient is able to afford all his medications. Will need to make sure patient has close follow-up at discharge. Code Status: Full Code DVT prophylaxis: Eliquis Advanced Care Planning-30 minutes: Need to consider skilled placement versus home at discharge. Will reassess tomorrow.
[2020-12-21] MEDS ORDERED: PANTOPRAZOLE 40MG TABLET PO SCH (06:30)
[2020-12-21] MEDS ORDERED: NA CHLORIDE 0.9% 250 ML ONE (06:45)
[2020-12-21] MEDS: NA CHLORIDE 0.9% 250 ML IV SCH (06:47)
[2020-12-21] MEDS ORDERED: ALBUMIN HUM 5% 500 ML IV SCH (07:00)
[2020-12-21] MEDS ORDERED: ARFORMOTEROL TARTRATE 15 MCG/2 ML VIAL.NEB ONE (07:29)
[2020-12-21] MEDS: ARFORMOTEROL TARTRATE 15 MCG/2 ML VIAL.NEB NEB SCH ×2 (07:30→20:00)
--- NOTE | 2020-12-21 07:45 | RAD REPORT ---
EXAM DESCRIPTION: RAD - Chest Single View - 12/21/2020 5:59 am CLINICAL HISTORY: Follow up CHF COMPARISON: Chest Single View dated 12/20/2020; Chest Abd Pelvis Wo Con dated 12/20/2020 FINDINGS: Lines: None. Lungs: Mild increased opacity the left lung base. The lung volumes are slightly less as well. Pleural: Difficult to exclude a small left pleural effusion. Cardiac: Cardiomegaly. Bones: No acute fractures. Other: IMPRESSION: Mild increased left basilar opacities likely representing atelectasis. No definite edema identified .
[2020-12-21] MEDS ORDERED: THIAMINE HCL 100 MG TABLET ONE (07:55)
[2020-12-21] MEDS ORDERED: FOLIC ACID 1 MG TABLET ONE (07:55)
[2020-12-21] MEDS ORDERED: FAMOTIDINE 20 MG TAB ONE (07:55)
[2020-12-21] MEDS ORDERED: APIXABAN 5 MG TABLET ONE (07:55)
[2020-12-21] MEDS ORDERED: HYDROCODONE/APAP 5/325 MG TAB ONE (07:55)
[2020-12-21] MEDS: THIAMINE HCL 100 MG TABLET PO SCH (07:59)
[2020-12-21] MEDS: FOLIC ACID 1 MG TABLET PO SCH (07:59)
[2020-12-21] MEDS: HYDROCODONE/APAP 5/325 MG TAB PO PRN (07:59)
[2020-12-21] MEDS: SUCRALFATE 1GM/10ML UCUP FT SCH ×4 (07:59→21:00)
[2020-12-21] MEDS: METOPROLOL TAR 50 MG TAB PO SCH ×2 (08:00→21:00)
[2020-12-21] MEDS: FAMOTIDINE 20 MG/2 ML VIAL IV SCH (08:00)
[2020-12-21] MEDS: APIXABAN 5 MG TABLET PO SCH ×2 (08:00→21:00)
--- NOTE | 2020-12-21 08:54 | P.CNS ---
Date of Consult: 12/21/20 Reason for Consult: ADILENE/ CKD Requesting Physician: Shreyas Mccann Primary Care Provider: Dr. Baker; Cardiology-Dr. Rodrigez Chief Complaint: Shortness of breath History of Present Illness: 70-year-old male with history of hepatitis C, GERD with hiatal hernia, hypertension, chronic renal disease, atrial fibrillation on chronic anticoagulation therapy, CAD with prior stent, peripheral vascular disease, and COPD. Patient presented with increasing shortness of breath. This has been ongoing but worse over the past several days. He has been having increased weakness and shortness of breath with exertion. Patient admits that he has been without medication for quite some time. He has not followed up with his PCP or cardiology in over a year. This has been difficult to get his medications. Patient previously on metoprolol, Eliquis, Lasix, hydrochlorothiazide, Lipitor, levothyroxine and lorazepam. reports some slurred speech this morning but this resolved quickly. Increase palpitations noted. He came to the ER for further evaluation. 09:45 This 70 yrs old Male presents to ER via EMS with complaints of Shortness of cp Breath. 09:45 The patient has shortness of breath at rest. Onset: The symptoms/episode began/occurred cp gradually. Duration: The symptoms are continuous, and are steadily getting worse. The patient presents with abdominal distention that is diffuse. Onset: The symptoms/episode began/occurred gradually. Associated signs and symptoms: Pertinent negatives: chest pain, fever, vomiting. Allergies acetaminophen [From Darvocet-N 100] Allergy (Verified 12/20/20 13:04) Rash propoxyphene [From Darvocet-N 100] Allergy (Verified 12/20/20 13:04) Rash Home medications list reviewed: Yes Home Medications: Albuterol Sulfate [Proair Digihaler] 2 puff PRN PRN 12/20/20 Apixaban [Eliquis] 5 mg PO BID 12/20/20 Atorvastatin Calcium [Lipitor] 1 tab DAILY 12/20/20 Benzonatate 100 mg PO TID PRN 12/20/20 Cholecalciferol (Vitamin D3) [Vitamin D3] 2,000 unit PO BID 12/20/20 Gabapentin 300 mg PO DAILY 12/20/20 LORazepam [Ativan*] 1 tab .ROUTE DAILYPRN PRN 12/20/20 Levothyroxine Sodium [Synthroid] 0.05 mg PO BEDTIME 12/20/20 Metoprolol Tartrate 50 mg PO BID 12/20/20 hydroCHLOROthiazide [Hydrochlorothiazide] 25 mg PO QOD QID 12/20/20 - Past Medical/Surgical History -: Hypertension -: Hyperlipidemia -: Hepatitis C -: Atrial fibrillation on chronic anticoagulation therapy -: CHF -: Liver cirrhosis -: Peripheral vascular disease with prior bypass -: CAD with prior LAD stent -: LAD stent -: Bypass to the left femoral artery -: Hernia repair Psychosocial/ Personal History: Lives at home with - Social History Alcohol use: No CD- Drugs: No Caffeine use: No Place of Residence: Home Review of Systems 10-point ROS is otherwise unremarkable General: Weakness, Malaise Respiratory: SOB with Excertion Cardiovascular: Edema Neurological: Weakness Physical Examination Temp Pulse Resp BP Pulse Ox 97.7 F 113 H 6 L 78/55 L 97 12/21/20 08:43 12/21/20 08:43 12/21/20 08:43 12/21/20 08:43 12/21/20 08:43 General: Oriented x3, Cooperative HEENT: Atraumatic Neck: Supple Respiratory: Diminished Cardiovascular: Regular rate/rhythm, Edema Gastrointestinal: Hypoactive, Distended Musculoskeletal: No clubbing, No contractures Integumentary: No rashes, No cyanosis Neurological: Normal speech Laboratory Data (last 24 hrs) 12/20/20 09:48: PT 15.4 H, INR 1.34 12/20/20 09:48: WBC 5.40, Hgb 8.4 L, Hct 25.1 L, Plt Count 159 12/20/20 09:48: Sodium 128 L, Potassium 4.7, BUN 23 H, Creatinine 1.53 H, Glucose 85, Magnesium 2.0, Total Bilirubin 1.6 H, AST 77 H, ALT 35, Alkaline Phosphatase 65 Imagings Data: EXAM DESCRIPTION: RAD - Chest Single View - 12/21/2020 5:59 am CLINICAL HISTORY: Follow up CHF COMPARISON: Chest Single View dated 12/20/2020; Chest Abd Pelvis Wo Con dated 12/20/2020 FINDINGS: Lines: None. Lungs: Mild increased opacity the left lung base. The lung volumes are slightly less as well. Pleural: Difficult to exclude a small left pleural effusion. Cardiac: Cardiomegaly. Bones: No acute fractures. Other: IMPRESSION: Mild increased left basilar opacities likely representing atelectasis. No definite edema identified . EXAM DESCRIPTION: CT - Chest Abd Pelvis Wo Con - 12/20/2020 12:56 pm CLINICAL HISTORY: ABDOMINAL DISTENTION, chest pain COMPARISON: No comparisons TECHNIQUE: Axial 5 millimeter thick images of the chest, abdomen and pelvis were obtained without IV contrast. Oral contrast was administered. All CT scans are performed using dose optimization technique as appropriate and may include automated exposure control or mA/KV adjustment according to patient size. FINDINGS: Fibrotic stranding and atelectasis changes are present in the lung bases. An 11 millimeter nodular focus abuts the right diaphragmatic pleura. No clearly malignant mass seen in the chest. There is an 8 centimeter thin-walled fluid collection in the medial right chest along the pleural margin. This extends from the hilum to the diaphragm. There is atelectasis along the lateral margin. Lateral left gutter atelectasis changes are present. Lateral lung base pneumonia is not excluded but lesser in likelihood. There is a trace amount of left pleural effusion. No pneumothorax. No pleural based mass. No chest wall mass or abnormal axillary lymphadenopathy seen. Mediastinal and hilar regions show no mass or lymphadenopathy. No significant cardiac finding. Liver is small with the left lobe prominent relative to the right. There is a pronounced nodularity of the liver capsule. A few parenchymal calcifications are present. This is an advanced cirrhotic liver pattern. No focal liver lesions seen though noncontrast imaging is diminished in sensitivity for lesion detection. No biliary tree dilatation. Gallbladder is difficult to distinguish from the ascites. Dilatation of the gallbladder is not suspected. Numerous calcifications present in a normal size spleen. No focal splenic lesion on noncontrast imaging imaging . Pancreas is poorly visualized. Primary pancreatic process is not suspected. No hydronephrosis or suspicious renal mass. Isodense masses and pyelonephritis cannot be excluded on non contrast imaging. No adrenal abnormalities. Urinary bladder is fully contracted around a Suárez catheter. No dilated bowel loops or focal ball bowel wall thickening. No free air or pneumatosis. Colonic diverticulosis is present. Much of the bowel is isodense to the ascites. Posterior distal rectal wall near the anus is poorly visualized. The oblique imaging angle through the distal rectum accentuates wall thickness. Patient has a very large volume of ascites filling the peritoneal cavity. No omental thickening seen. Fluid retention is present in the subcutaneous fatty tissues. No mass or bulky lymphadenopathy. Disc and bone degenerative changes are present not unremarkable for patient age. Dense arterial tree calcifications are present. IMPRESSION: Large volume of ascites present with advanced cirrhotic changes in the liver. No focal liver lesions seen though sensitivity is limited in the absence of IV contrast. No bowel obstruction, free air or emergent CT chest, abdomen or pelvis finding. Additional nonacute findings detailed in the body of the report. CT abdomen and pelvis imaging shows no significant or suspicious finding. EXAM DESCRIPTION: US - Extrem Venous W Compress Deepak - 12/20/2020 12:22 pm CLINICAL HISTORY: SWELLING Bilateral leg edema and swelling. COMPARISON: Lower Extremity Arterial Bilat dated 09/17/2017 TECHNIQUE: Real-time sonographic interrogation of the left and right lower extremity deep venous systems was performed. FINDINGS: Normal compressibility, flow augmentation, phasic flow and spontaneous flow is identified in both the left and right lower extremity deep venous systems. 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 IMPRESSION: No sonographic evidence of left or right lower extremity deep venous thrombosis. Conclusions/Impression: ADILENE in the setting of hypotension & anasarca CKD III with proteinuria -Give IV Albumin -Lasix as tolerated Hyponatremia -Continue Lasix Hyperkalemia -Continue Lasix Hypotension -Give IV Albumin Diastolic CHF, A/C Anasarca -Echocardiogram pending -Continue Lasix -Low sodium diet Severe malnutrition Hypoalbuminemia -Give IV Albumin -Consider protein supplementation Anemia in chronic illness -Transfuse PRBC as needed -Retacrit X1 Liver cirrhosis with ascites HCV -Plan for paracentesis; Give Albumin with procedure Thank you kindly for the consultation. Case reviewed with Dr. Mccann. Critical Care: Yes (>30min)
[2020-12-21] MEDS ORDERED: NA CHLORIDE 0.9% 250 ML IV ONE (08:57)
[2020-12-21] MEDS ORDERED: EPOETIN ALFA-EPBX 10,000 UNIT/ML VIAL SQ ONE (09:30)
[2020-12-21] MEDS: NOREPINEPHRINE 4 MG in D5W 250 ML IV SCH ×2 (09:35→18:00)
[2020-12-21] MEDS ORDERED: ALBUMIN HUMAN 25% 200 ML IV ONE ×2 (09:44→14:42)
[2020-12-21] MEDS ORDERED: NA CHLORIDE 0.9% 1,000 ML ONE (09:44)
[2020-12-21] MEDS: ALBUMIN HUMAN 25% 100 ML IV SCH ×3 (09:46→21:00)
[2020-12-21] MEDS ORDERED: NA CHLORIDE 0.9% 1,000 ML IV SCH (10:00)
--- NOTE | 2020-12-21 11:22 | RAD REPORT ---
EXAM DESCRIPTION: US - Paracentesis Proc Guidance - 12/21/2020 10:39 am CLINICAL HISTORY: Ascites, Hx of Hep C suspect Liver cirrhosis Ascites COMPARISON: No comparisons FINDINGS: Informed consent was obtained and time-out was performed. Patient's abdomen was prepped and draped in the usual sterile fashion. 1% lidocaine was used for loca l anesthetic purposes. A small skin incision was made. A paracentesis catheter was guided into the peroneal cavity under son ographic guidance. A small amount of fluid was sent for requested lab studies. A large volume paracentesis was performed . The patient tolerated the procedure well. Patient was administered IV albumin per protocol following the procedure. IMPRESSION: Successful ultrasound-guided paracentesis.
--- NOTE | 2020-12-21 12:35 | RAD REPORT ---
EXAM DESCRIPTION: RAD - Chest Single View - 12/21/2020 12:23 pm CLINICAL HISTORY: PICC placement COMPARISON: Chest Single View dated 12/21/2020; Chest Single View dated 12/20/2020 FINDINGS: Right subclavian approach PICC with tip overlying the distal SVC in satisfactory position. Other findings are unchanged. IMPRESSION: The PICC tip overlies the distal SVC in satisfactory position.
[2020-12-21 13:38] LABS: Appearance CLEAR (CLEAR); Body Fluid Source PERITONEAL; Color of fluid Yellow (COLORLESS)
[2020-12-21 13:39] LABS: Body Fluid WBC 37 /mm^3
[2020-12-21] MEDS ORDERED: IPRATROPIUM BROM 0.5MG/2.5ML ONE (19:23)
[2020-12-21] MEDS ORDERED: PRASUGREL (EFFIENT) 10 MG TAB ONE (20:44)
[2020-12-21] MEDS: ATORVASTATIN 40 MG TAB PO SCH (21:00)
[2020-12-21] MEDS ORDERED: NA CHLORIDE 0.9% 500 ML ONE (21:07)
[2020-12-21] MEDS: NOREPINEPHRINE 8 MG in Dextrose 5%-Water 500 ML IV SCH (23:00)
[2020-12-22] MEDS ORDERED: ALBUMIN HUMAN 25% 0 ML IV ONE (00:01)
[2020-12-22] MEDS ORDERED: ALBUMIN HUMAN 25% 200 ML IV ONE (00:12)
[2020-12-22] MEDS ORDERED: HYDROMORPHONE HCL 0.5 MG/0.5 ML INJ ONE ×3 (00:59→23:13)
[2020-12-22] MEDS: FUROSEMIDE 40 MG/4 ML VIAL IV SCH ×2 (01:00→09:00)
[2020-12-22] MEDS: HYDROMORPHONE HCL 0.5 MG/0.5 ML INJ IV PRN ×3 (01:06→23:15)
[2020-12-22] MEDS: NOREPINEPHRINE 8 MG in Dextrose 5%-Water 500 ML IV SCH ×2 (01:30→09:40)
[2020-12-22] MEDS: ALBUMIN HUMAN 25% 100 ML IV SCH (03:00)
[2020-12-22 04:51] LABS: Basophils % 0.6 % (0-1.3); Lymphocytes % 11.2 % (15.3-44.8); MPV 7.9 fL (7.6-11.3)
[2020-12-22 05:04] LABS: Hematocrit 19.5 % (39.6-49.0)
[2020-12-22 05:14] LABS: Albumin 3.6 g/dL (3.4-5.0); Bilirubin Total 4.2 mg/dL (0.2-1.0); Magnesium 2.1 mg/dL (1.8-2.4)
--- NOTE | 2020-12-22 06:14 | P.PN ---
Subjective Date of Service: 12/22/20 Primary Care Provider: Dr. Baker; Cardiology-Dr. Rodrigez Chief Complaint: Shortness of breath Subjective: Other (Patient overall improved. Patient remains on IV Levophed. Heart rate and blood pressure improved on medication) Physical Examination - Vital Signs Temperature: 97.8 F Blood Pressure: 126/77 Pulse: 92 Respirations: 8 Pulse Ox (%): 97 Assessment & Plan Discharge Plan: Other ([facility] facility) Plan to discharge in: Greater than 2 days Physician Review Additional Text: COVID: negative Chest x-ray: COMPARISON: No comparisons FINDINGS: Portable technique limits examination quality. Mild interstitial pulmonary edema is seen. Linear opacities in the left lung base laterally probably represent atelectasis. The heart is prominent in size. A large hiatal hernia is likely present appear No displaced fractures. Venous doppler: COMPARISON: Lower Extremity Arterial Bilat dated 09/17/2017 TECHNIQUE: Real-time sonographic interrogation of the left and right lower extremity deep venous systems was performed. FINDINGS: Normal compressibility, flow augmentation, phasic flow and spontaneous flow is identified in both the left and right lower extremity deep venous systems. 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 IMPRESSION: No sonographic evidence of left or right lower extremity deep venous thrombosis. CT head: COMPARISON: Chest Abd Pelvis Wo Con dated 12/20/2020 TECHNIQUE: Axial 5 mm thick images of the head were obtained without IV contrast. All CT scans are performed using dose optimization technique as appropriate and may include automated exposure control or mA/KV adjustment according to patient size. FINDINGS: No intracranial hemorrhage, mass, edema or shift of mid-line structures. No acute cortical based infarction identified. No cortical edema or sulcal effacement. Diminished attenuation the left external capsule and insular cortex region is most likely remote. There are scattered chronic ischemic changes in the cerebral white matter. No abnormal extra-axial fluid collections. Mild to moderate for age atrophy changes are present. Ventricles are in proportion to the volume loss. Patient has dense arterial tree calcifications. Mastoid air cells and visualized portions of the paranasal sinuses are clear. No acute bony findings. IMPRESSION: No intracranial hemorrhage, mass or emergent intracranial CT finding. Atrophy and chronic ischemic changes are present with focal ischemic changes in the left external capsule and insular cortex region. Chronic ischemic changes can mask nonhemorrhagic acute infarction. MR brain followup can be obtained if there is ongoing concern for acute ischemia. CT chest/abdomen and pelvis: COMPARISON: No comparisons TECHNIQUE: Axial 5 millimeter thick images of the chest, abdomen and pelvis were obtained without IV contrast. Oral contrast was administered. All CT scans are performed using dose optimization technique as appropriate and may include automated exposure control or mA/KV adjustment according to patient size. FINDINGS: Fibrotic stranding and atelectasis changes are present in the lung bases. An 11 millimeter nodular focus abuts the right diaphragmatic pleura. No clearly malignant mass seen in the chest. There is an 8 centimeter thin-walled fluid collection in the medial right chest along the pleural margin. This extends from the hilum to the diaphragm. There is atelectasis along the lateral margin. Lateral left gutter atelectasis changes are present. Lateral lung base pneumonia is not excluded but lesser in likelihood. There is a trace amount of left pleural effusion. No pneumothorax. No pleural based mass. No chest wall mass or abnormal axillary lymphadenopathy seen. Mediastinal and hilar regions show no mass or lymphadenopathy. No significant cardiac finding. Liver is small with the left lobe prominent relative to the right. There is a pronounced nodularity of the liver capsule. A few parenchymal calcifications are present. This is an advanced cirrhotic liver pattern. No focal liver lesions seen though noncontrast imaging is diminished in sensitivity for lesion detection. No biliary tree dilatation. Gallbladder is difficult to distinguish from the ascites. Dilatation of the gallbladder is not suspected. Numerous calcifications present in a normal size spleen. No focal splenic lesion on noncontrast imaging imaging . Pancreas is poorly visualized. Primary pancreatic process is not suspected. No hydronephrosis or suspicious renal mass. Isodense masses and pyelonephritis cannot be excluded on non contrast imaging. No adrenal abnormalities. Urinary bladder is fully contracted around a Suárez catheter. No dilated bowel loops or focal ball bowel wall thickening. No free air or pneumatosis. Colonic diverticulosis is present. Much of the bowel is isodense to the ascites. Posterior distal rectal wall near the anus is poorly visualized. The oblique imaging angle through the distal rectum accentuates wall thickness. Patient has a very large volume of ascites filling the peritoneal cavity. No omental thickening seen. Fluid retention is present in the subcutaneous fatty tissues. No mass or bulky lymphadenopathy. Disc and bone degenerative changes are present not unremarkable for patient age. Dense arterial tree calcifications are present. IMPRESSION: Large volume of ascites present with advanced cirrhotic changes in the liver. No focal liver lesions seen though sensitivity is limited in the absence of IV contrast. No bowel obstruction, free air or emergent CT chest, abdomen or pelvis finding. Additional nonacute findings detailed in the body of the report. CT abdomen and pelvis imaging shows no significant or suspicious finding. Paracentesis: COMPARISON: No comparisons FINDINGS: Informed consent was obtained and time-out was performed. Patient's abdomen was prepped and draped in the usual sterile fashion. 1% lidocaine was used for local anesthetic purposes. A small skin incision was made. A paracentesis catheter was guided into the peroneal cavity under sonographic guidance. A small amount of fluid was sent for requested lab studies. A large volume paracentesis was performed. The patient tolerated the procedure well. Patient was administered IV albumin per protocol following the procedure. IMPRESSION: Successful ultrasound-guided paracentesis. Physical Exam: GENERAL: Patient appears older than his stated age. Patient alert and cooperative. Currently on nasal cannula. VITAL SIGNS: Reviewed. BP low this am. HEENT: neck supple LUNGS: Decreased bilateral. Clear anteriorly. HEART: Atrial fibrillation rate around 100-110 ABDOMEN: Significant ascites noted. EXTREMITIES: Significant anasarca and 2+ pitting edema to the lower extremities up to the thigh region NEUROLOGIC: Patient alert, cooperative. No focal deficits. No slurred speech. SKIN: As above. Significant edema to the lower extremity. Impression: Dyspnea secondary to acute on chronic CHF likely diastolic versus systolic complicated with anasarca, atrial fibrillation with RVR on chronic anticoagulation therapy, and Hypotension Hepatitis C with suspected cirrhosis complicated with significant anasarca and lower extremity edema Acute on chronic renal disease stage III with hyponatremia Acute anemia with chronic disease with possible GI bleed Hypertension Hyperlipidemia CAD with prior stent Hypothyroidism Anxiety Slurred speech Peripheral vascular disease with history of bypass Noncompliance with follow-up and medication Plan: Dyspnea secondary to acute on chronic CHF likely diastolic versus systolic complicated with anasarca, atrial fibrillation with RVR on chronic anticoagulation therapy, and Hypotension: Blood pressure and heart rate improved with IV fluid boluses, 1 unit of blood given yesterday, and IV Levophed. Patient remains on IV Levophed. Hemoglobin low again today. Will transfuse 2 units of blood. We will hold IV Lasix. Case discussed with GI. GI will likely intervene with EGD to further evaluate. DC Pepcid. Will change to Protonix IV. Patient remains on metoprolol 25 mg 1 pill twice daily to help with rate control. Continue to wean off Levophed. Patient with hyponatremia. Will discuss with nephrology, pulmonology, cardiology and GI. Continue to hold Eliquis. Will discuss with patient and on plan of care. Patient may require skilled placement or LTAC. Hepatitis C with suspected cirrhosis complicated with significant anasarca and lower extremity edema: Patient had paracentesis yesterday. Culture sent out. Case discussed with GI yesterday. Continue with the above plan of care. Acute on chronic renal disease stage III with hyponatremia: Await recommendations by nephrology. Patient may require IV fluids. Acute anemia with chronic disease with possible GI bleed: H/H remains low. Patient given unit of blood yesterday. Will transfuse 2 more units of blood. Continue to hold Eliquis. Patient will likely require EGD to further evaluate. Will DC Pepcid. Will change to Protonix IV twice daily. Will discuss with GI further. Patient may require IV Protonix drip. Hypertension: Continue metoprolol with parameters in place. Will monitor and adjust appropriately. Hyperlipidemia: Continue with Lipitor. CAD with prior stent: Patient remains on metoprolol. Eliquis on hold. Hypothyroidism: Continue levothyroxine 50 mcg daily. He has not been taking his medication. Anxiety: Continue with medication as needed. Slurred speech: Resolved CT scan shows no evidence of stroke, patient is at risk for stroke. Continue with above plan of care. Peripheral vascular disease with history of bypass: Continue to hold Eliquis Noncompliance with follow-up and medication: Compliance with medication and follow-up addressed in detail. Will make sure patient is able to afford all his medications. Will need to make sure patient has close follow-up at discharge. Code Status: Full Code DVT prophylaxis: Currently on hold due to anemia Advanced Care Planning-30 minutes: Need to consider skilled placement or LTAC. Time Spent Managing Pts Care (In Minutes): 55
[2020-12-22] MEDS ORDERED: ARFORMOTEROL TARTRATE 15 MCG/2 ML VIAL.NEB ONE (07:48)
[2020-12-22] MEDS: ARFORMOTEROL TARTRATE 15 MCG/2 ML VIAL.NEB NEB SCH ×2 (08:00→20:00)
[2020-12-22] MEDS: FAMOTIDINE 20 MG/2 ML VIAL IV SCH (09:00)
[2020-12-22] MEDS: METOPROLOL TAR 50 MG TAB PO SCH (09:00)
[2020-12-22] MEDS ORDERED: SODIUM CHLORIDE 0.9% 10ML INJ IV PRN (09:20)
[2020-12-22] MEDS ORDERED: THIAMINE HCL 100 MG TABLET ONE (09:25)
[2020-12-22] MEDS ORDERED: SUCRALFATE 1 GM TABLET ONE (09:26)
[2020-12-22] MEDS ORDERED: FOLIC ACID 1 MG TABLET ONE (09:26)
[2020-12-22] MEDS ORDERED: FAMOTIDINE 20 MG TAB ONE (09:26)
[2020-12-22] MEDS ORDERED: PANTOPRAZOLE 40 MG INJ ONE ×2 (09:36→20:15)
[2020-12-22] MEDS ORDERED: NS 0.9% VIAL 10 ML ONE (09:36)
--- NOTE | 2020-12-22 09:39 | RAD REPORT ---
EXAM DESCRIPTION: RAD - Chest Single View - 12/22/2020 5:50 am CLINICAL HISTORY: Follow up CHF COMPARISON: Chest Single View dated 12/21/2020; Chest Single View dated 12/21/2020; Chest Single Vie w dated 12/20/2020 FINDINGS: Lines: PICC in similar position with tip overlying the distal SVC . Lungs: Mild increased bilateral airspace disease. Similar left basilar opacities. Pleural: No significant pleural effusions or pneumothorax. Cardiac: Cardiomegaly. Bones: No acute fractures. Other: IMPRESSION: Mild increased prominence of the pulmonary interstitium may reflect vascular congestion. Probable left basilar atelectasis.
[2020-12-22] MEDS: THIAMINE HCL 100 MG TABLET PO SCH (09:40)
[2020-12-22] MEDS: PANTOPRAZOLE 40 MG INJ IVP SCH ×2 (09:40→20:20)
[2020-12-22] MEDS: FOLIC ACID 1 MG TABLET PO SCH (09:41)
[2020-12-22] MEDS: SUCRALFATE 1GM/10ML UCUP FT SCH ×4 (10:02→20:21)
[2020-12-22] MEDS: LEVOTHYROXINE SOD 0.05 MG TABLET PO SCH (10:02)
[2020-12-22] MEDS: Rifaximin 550 MG Tab PO SCH ×2 (10:02→20:21)
--- NOTE | 2020-12-22 11:29 | P.PN ---
Date of Service: 12/22/20 Vital Signs Temp Pulse Resp BP Pulse Ox 97.8 F 92 H 8 L 126/77 97 12/22/20 09:21 12/22/20 09:21 12/22/20 09:21 12/22/20 09:21 12/22/20 09:21 Medications Acetaminophen (Acetaminophen 500 Mg Tab) 500 mg PO Q4HP PRN PRN Reason: TEMP > 101' F Hydrocodone Bitart/Acetaminophen (Hydrocodone/Apap 5/325 Mg Tab) 1 tab PO Q6H PRN PRN Reason: Pain scale 5-7 (Moderate) Last Admin: 12/21/20 07:59 Dose: 1 tab Documented by: Apixaban (Apixaban 5 Mg Tablet) 5 mg PO BID [facility] Last Admin: 12/21/20 21:00 Dose: 5 mg Documented by: Arformoterol Tartrate (Arformoterol Tartrate 15 Mcg/2 Ml Vial.Neb) 15 mcg NEB BIDRESP [facility] Last Admin: 12/22/20 08:00 Dose: 15 mcg Documented by: Atorvastatin Calcium (Atorvastatin 40 Mg Tab) 40 mg PO BEDTIME [facility] Last Admin: 12/21/20 21:00 Dose: 40 mg Documented by: Folic Acid (Folic Acid 1 Mg Tablet) 1 mg PO DAILY [facility] Last Admin: 12/22/20 09:41 Dose: 1 mg Documented by: Furosemide (Furosemide 20 Mg/ 2ml Vial) 20 mg IV 1X ONE Stop: 12/22/20 17:01 Hydromorphone HCl (Hydromorphone Hcl 0.5 Mg/0.5 Ml Inj) 0.5 mg IV Q6H PRN PRN Reason: Pain scale 5-7 (Moderate) Last Admin: 12/22/20 01:06 Dose: 0.5 mg Documented by: Sodium Chloride (Sodium Chloride) 250 mls @ 0 mls/hr IV .Q0M [facility] Last Admin: 12/21/20 06:47 Dose: 250 mls Documented by: Norepinephrine Bitartrate 8 mg (/ Dextrose) 508 mls @ 3.81 mls/hr IV TITR [facility]; Protocol Last Admin: 12/22/20 09:40 Dose: 508 mls Documented by: Ipratropium [place] (Ipratropium Brom 0.5mg/2.5ml) 0.5 mg NEB [id number] PRN PRN Reason: SHORTNESS OF BREATH Levothyroxine Sodium (Levothyroxine Sod 0.05 Mg Tablet) [facility] Admin: 12/22/20 10:02 Dose: 0.05 mg Documented by: Lorazepam (Lorazepam 0.5 Mg Tablet) 0.5 mg PO BID PRN PRN Reason: ANXIETY Ondansetron HCl (Ondansetron 4 Mg/2 Ml Vial) 4 mg IV Q6HP PRN PRN Reason: NAUSEA / VOMITING Last Admin: 12/20/20 16:09 Dose: 4 mg Documented by: Pantoprazole Sodium (Pantoprazole 40 Mg Inj) 40 mg IVP Q12HR [facility]; Protocol Last Admin: 12/22/20 09:40 Dose: 40 mg Documented by: Rifaximin (Rifaximin 550 Mg Tab) 550 mg PO BID [facility]; Protocol Last Admin: 12/22/20 10:02 Dose: 550 mg Documented by: Sodium Chloride (Flush Normal Saline 10 Ml) 10 ml IV BID [facility] Last Admin: 12/22/20 09:00 Dose: 10 ml Documented by: Sodium Chloride (Sodium Chloride 0.9% 10ml Inj) 10 ml IV UD PRN PRN Reason: Diluant Sucralfate (Sucralfate 1gm/10ml Ucup) 1 gm FT QID [facility] Last Admin: 12/22/20 10:02 Dose: 1 gm Documented by: Thiamine HCl (Thiamine Hcl 100 Mg Tablet) 100 mg PO DAILY [facility] Last Admin: 12/22/20 09:40 Dose: 100 mg Documented by: Tramadol HCl (Tramadol Hcl 50 Mg Tab) 50 mg PO TID PRN PRN Reason: Pain scale 2-4 (Mild) Lab Results (last 24 hrs) 12/20/20 09:48: ABO/Rh O NEGATIVE Microbiology Results 12/20/20 10:25 Blood - Blood Aerobic Blood Culture - Preliminary No growth in 24 hours. 12/20/20 10:25 Blood - Blood Anaerobic Blood Culture - Preliminary No growth in 24 hours. Assessment/ Plan: Nephrology No dyspnea. CORONEL No chest pain Malaise and weakness No acute events overnight Vitals, medications, blood work and imaging reviewed in the chart General: Oriented x3, Cooperative HEENT: Atraumatic Neck: Supple Respiratory: Diminished Cardiovascular: Regular rate/rhythm, Edema Gastrointestinal: Hypoactive, Distended Musculoskeletal: No clubbing, No contractures Integumentary: No rashes, No cyanosis Neurological: Normal speech Laboratory Data (last 24 hrs) 12/20/20 09:48: PT 15.4 H, INR 1.34 12/20/20 09:48: WBC 5.40, Hgb 8.4 L, Hct 25.1 L, Plt Count 159 12/20/20 09:48: Sodium 128 L, Potassium 4.7, BUN 23 H, Creatinine 1.53 H, Glucose 85, Magnesium 2.0, Total Bilirubin 1.6 H, AST 77 H, ALT 35, Alkaline Phosphatase 65 Imagings Data: EXAM DESCRIPTION: RAD - Chest Single View - 12/21/2020 5:59 am CLINICAL HISTORY: Follow up CHF COMPARISON: Chest Single View dated 12/20/2020; Chest Abd Pelvis Wo Con dated 12/20/2020 FINDINGS: Lines: None. Lungs: Mild increased opacity the left lung base. The lung volumes are slightly less as well. Pleural: Difficult to exclude a small left pleural effusion. Cardiac: Cardiomegaly. Bones: No acute fractures. Other: IMPRESSION: Mild increased left basilar opacities likely representing atelectasis. No definite edema identified . EXAM DESCRIPTION: CT - Chest Abd Pelvis Wo Con - 12/20/2020 12:56 pm CLINICAL HISTORY: ABDOMINAL DISTENTION, chest pain COMPARISON: No comparisons TECHNIQUE: Axial 5 millimeter thick images of the chest, abdomen and pelvis were obtained without IV contrast. Oral contrast was administered. All CT scans are performed using dose optimization technique as appropriate and may include automated exposure control or mA/KV adjustment according to patient size. FINDINGS: Fibrotic stranding and atelectasis changes are present in the lung bases. An 11 millimeter nodular focus abuts the right diaphragmatic pleura. No clearly malignant mass seen in the chest. There is an 8 centimeter thin-walled fluid collection in the medial right chest along the pleural margin. This extends from the hilum to the diaphragm. There is atelectasis along the lateral margin. Lateral left gutter atelectasis changes are present. Lateral lung base pneumonia is not excluded but lesser in likelihood. There is a trace amount of left pleural effusion. No pneumothorax. No pleural based mass. No chest wall mass or abnormal axillary lymphadenopathy seen. Mediastinal and hilar regions show no mass or lymphadenopathy. No significant cardiac finding. Liver is small with the left lobe prominent relative to the right. There is a pronounced nodularity of the liver capsule. A few parenchymal calcifications are present. This is an advanced cirrhotic liver pattern. No focal liver lesions seen though noncontrast imaging is diminished in sensitivity for lesion detection. No biliary tree dilatation. Gallbladder is difficult to distinguish from the ascites. Dilatation of the gallbladder is not suspected. Numerous calcifications present in a normal size spleen. No focal splenic lesion on noncontrast imaging imaging . Pancreas is poorly visualized. Primary pancreatic process is not suspected. No hydronephrosis or suspicious renal mass. Isodense masses and pyelonephritis cannot be excluded on non contrast imaging. No adrenal abnormalities. Urinary bladder is fully contracted around a Suárez catheter. No dilated bowel loops or focal ball bowel wall thickening. No free air or pneumatosis. Colonic diverticulosis is present. Much of the bowel is isodense to the ascites. Posterior distal rectal wall near the anus is poorly visualized. The oblique imaging angle through the distal rectum accentuates wall thickness. Patient has a very large volume of ascites filling the peritoneal cavity. No omental thickening seen. Fluid retention is present in the subcutaneous fatty tissues. No mass or bulky lymphadenopathy. Disc and bone degenerative changes are present not unremarkable for patient age. Dense arterial tree calcifications are present. IMPRESSION: Large volume of ascites present with advanced cirrhotic changes in the liver. No focal liver lesions seen though sensitivity is limited in the absence of IV contrast. No bowel obstruction, free air or emergent CT chest, abdomen or pelvis finding. Additional nonacute findings detailed in the body of the report. CT abdomen and pelvis imaging shows no significant or suspicious finding. EXAM DESCRIPTION: US - Extrem Venous W Compress Deepak - 12/20/2020 12:22 pm CLINICAL HISTORY: SWELLING Bilateral leg edema and swelling. COMPARISON: Lower Extremity Arterial Bilat dated 09/17/2017 TECHNIQUE: Real-time sonographic interrogation of the left and right lower extremity deep venous systems was performed. FINDINGS: Normal compressibility, flow augmentation, phasic flow and spontaneous flow is identified in both the left and right lower extremity deep venous systems. 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 IMPRESSION: No sonographic evidence of left or right lower extremity deep venous thrombosis. Conclusions/Impression: ADILENE in the setting of hypotension & anasarca CKD III with proteinuria -Restart Lasix IV Hyponatremia -Restart Lasix IV Hyperkalemia -Restart Lasix Hypotension -IV Albumin prn Diastolic CHF, A/C Anasarca -Echocardiogram pending -Restart Lasix -Low sodium diet Severe malnutrition Hypoalbuminemia -Give IV Albumin prn -Consider protein supplementation Anemia in chronic illness -Transfuse PRBC as needed -Retacrit prn Liver cirrhosis with ascites HCV -Paracentesis yesterday
[2020-12-22] MEDS: FUROSEMIDE 20 MG/ 2ML VIAL IV SCH ×2 (12:00→18:00)
[2020-12-22] MEDS ORDERED: FUROSEMIDE 20 MG/ 2ML VIAL IV ONE (17:00)
[2020-12-22] MEDS ORDERED: NA CHLORIDE 0.9% 250 ML ONE (20:05)
[2020-12-22] MEDS: ATORVASTATIN 40 MG TAB PO SCH (20:21)
[2020-12-22] MEDS ORDERED: NOREPINEPHRINE 4mg/D5W 250mL 4 MG/250 ML BAG IV ONE (23:21)
[2020-12-22] MEDS ORDERED: NOREPINEPHRINE 4 MG in D5W 250 ML IV PRN (23:31)
[2020-12-23] MEDS ORDERED: FUROSEMIDE 20 MG/ 2ML VIAL ONE ×4 (02:05→20:22)
[2020-12-23] MEDS: FUROSEMIDE 20 MG/ 2ML VIAL IV SCH ×4 (02:19→20:27)
[2020-12-23 04:30] LABS: Absolute Lymphocytes (CBC) 0.9 K/uL (0.7-4.9); Basophils % 0.8 % (0-1.3); Hematocrit 25.7 % (39.6-49.0); Lymphocytes % 14.3 % (15.3-44.8); MPV 7.8 fL (7.6-11.3)
[2020-12-23 05:11] LABS: Urine Appearance CLEAR (Clear); Urine Bilirubin NEGATIVE (Negative); Urine Blood 1+ (Negative); Urine Color DK YELLOW (Yellow); Urine Glucose NEGATIVE (Negative); Urine Protein NEGATIVE (Negative); Urine Specific Gravity 1.015 (1.005-1.030)
[2020-12-23 05:20] LABS: Albumin 2.8 g/dL (3.4-5.0); Protein, Total 6.3 g/dL (6.4-8.2); Uric Acid 8.4 mg/dL (3.5-7.2)
[2020-12-23 05:23] LABS: Bilirubin Total 6.5 mg/dL (0.2-1.0)
[2020-12-23] MEDS: LEVOTHYROXINE SOD 0.05 MG TABLET PO SCH ×2 (05:50→06:30)
[2020-12-23 05:52] LABS: Urine Bacteria 20-50 /HPF (NONE SEEN)
[2020-12-23 05:53] LABS: Urine Mucus 2+ /HPF (NONE SEEN)
--- NOTE | 2020-12-23 06:15 | P.PN ---
Subjective Date of Service: 12/23/20 Primary Care Provider: Dr. Baker; Cardiology-Dr. Rodrigez Chief Complaint: Shortness of breath Subjective: Improving, Doing well, Other (Patient off Levophed. Blood pressure stable. Heart rate improved. Patient received 2 units of blood last night.) Physical Examination - Vital Signs Temperature: 98.2 F Blood Pressure: 118/77 Pulse: 123 Respirations: 14 Pulse Ox (%): 95 Assessment & Plan Discharge Plan: Other (correction facility) Plan to discharge in: Greater than 2 days Physician Review Additional Text: COVID: negative Chest x-ray: COMPARISON: No comparisons FINDINGS: Portable technique limits examination quality. Mild interstitial pulmonary edema is seen. Linear opacities in the left lung base laterally probably represent atelectasis. The heart is prominent in size. A large hiatal hernia is likely present appear No displaced fractures. Venous doppler: COMPARISON: Lower Extremity Arterial Bilat dated 09/17/2017 TECHNIQUE: Real-time sonographic interrogation of the left and right lower extremity deep venous systems was performed. FINDINGS: Normal compressibility, flow augmentation, phasic flow and spontaneous flow is identified in both the left and right lower extremity deep venous systems. 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 IMPRESSION: No sonographic evidence of left or right lower extremity deep venous thrombosis. CT head: COMPARISON: Chest Abd Pelvis Wo Con dated 12/20/2020 TECHNIQUE: Axial 5 mm thick images of the head were obtained without IV contrast. All CT scans are performed using dose optimization technique as appropriate and may include automated exposure control or mA/KV adjustment according to patient size. FINDINGS: No intracranial hemorrhage, mass, edema or shift of mid-line structures. No acute cortical based infarction identified. No cortical edema or sulcal effacement. Diminished attenuation the left external capsule and insular cortex region is most likely remote. There are scattered chronic ischemic changes in the cerebral white matter. No abnormal extra-axial fluid collections. Mild to moderate for age atrophy changes are present. Ventricles are in proportion to the volume loss. Patient has dense arterial tree calcifications. Mastoid air cells and visualized portions of the paranasal sinuses are clear. No acute bony findings. IMPRESSION: No intracranial hemorrhage, mass or emergent intracranial CT finding. Atrophy and chronic ischemic changes are present with focal ischemic changes in the left external capsule and insular cortex region. Chronic ischemic changes can mask nonhemorrhagic acute infarction. MR brain followup can be obtained if there is ongoing concern for acute ischemia. CT chest/abdomen and pelvis: COMPARISON: No comparisons TECHNIQUE: Axial 5 millimeter thick images of the chest, abdomen and pelvis were obtained without IV contrast. Oral contrast was administered. All CT scans are performed using dose optimization technique as appropriate and may include automated exposure control or mA/KV adjustment according to patient size. FINDINGS: Fibrotic stranding and atelectasis changes are present in the lung bases. An 11 millimeter nodular focus abuts the right diaphragmatic pleura. No clearly malignant mass seen in the chest. There is an 8 centimeter thin-walled fluid collection in the medial right chest along the pleural margin. This extends from the hilum to the diaphragm. There is atelectasis along the lateral margin. Lateral left gutter atelectasis changes are present. Lateral lung base pneumonia is not excluded but lesser in likelihood. There is a trace amount of left pleural effusion. No pneumothorax. No pleural based mass. No chest wall mass or abnormal axillary lymphadenopathy seen. Mediastinal and hilar regions show no mass or lymphadenopathy. No significant cardiac finding. Liver is small with the left lobe prominent relative to the right. There is a pronounced nodularity of the liver capsule. A few parenchymal calcifications are present. This is an advanced cirrhotic liver pattern. No focal liver lesions seen though noncontrast imaging is diminished in sensitivity for lesion detection. No biliary tree dilatation. Gallbladder is difficult to distinguish from the ascites. Dilatation of the gallbladder is not suspected. Numerous calcifications present in a normal size spleen. No focal splenic lesion on n oncontrast imaging imaging . Pancreas is poorly visualized. Primary pancreatic process is not suspected. No hydronephrosis or suspicious renal mass. Isodense masses and pyelonephritis cannot be excluded on non contrast imaging. No adrenal abnormalities. Urinary bladder is fully contracted around a Suárez catheter. No dilated bowel loops or focal ball bowel wall thickening. No free air or pneumatosis. Colonic diverticulosis is present. Much of the bowel is isodense to the ascites. Posterior distal rectal wall near the anus is poorly visualized. The oblique imaging angle through the distal rectum accentuates wall thickness. Patient has a very large volume of ascites filling the peritoneal cavity. No omental thickening seen. Fluid retention is present in the subcutaneous fatty tissues. No mass or bulky lymphadenopathy. Disc and bone degenerative changes are present not unremarkable for patient age. Dense arterial tree calcifications are present. IMPRESSION: Large volume of ascites present with advanced cirrhotic changes in the liver. No focal liver lesions seen though sensitivity is limited in the absence of IV contrast. No bowel obstruction, free air or emergent CT chest, abdomen or pelvis finding. Additional nonacute findings detailed in the body of the report. CT abdomen and pelvis imaging shows no significant or suspicious finding. Paracentesis: COMPARISON: No comparisons FINDINGS: Informed consent was obtained and time-out was performed. Patient's abdomen was prepped and draped in the usual sterile fashion. 1% lidocaine was used for local anesthetic purposes. A small skin incision was made. A paracentesis catheter was guided into the peroneal cavity under sonographic guidance. A small amount of fluid was sent for requested lab studies. A large volume paracentesis was performed. The patient tolerated the procedure well. Patient was administered IV albumin per protocol following the procedure. IMPRESSION: Successful ultrasound-guided paracentesis. Physical Exam: GENERAL: Patient appears older than his stated age. Patient alert and cooperative. Currently on nasal cannula. VITAL SIGNS: Reviewed. Blood pressure stable at this time. Now off Levophed. HEENT: neck supple LUNGS: Decreased bilateral. Clear anteriorly. HEART: Atrial fibrillation rate around 100-110 ABDOMEN: Significant ascites noted. EXTREMITIES: Edema to the lower extremities improved NEUROLOGIC: Patient alert, cooperative. No focal deficits. No slurred speech. SKIN: As above. Significant edema to the lower extremity. Impression: Dyspnea secondary to acute on chronic CHF likely diastolic versus systolic complicated with anasarca, atrial fibrillation with RVR on chronic an ticoagulation therapy, and Hypotension Hepatitis C with suspected cirrhosis complicated with significant anasarca and lower extremity edema Acute on chronic renal disease stage III with hyponatremia Acute anemia with chronic disease with possible GI bleed Hypertension Hyperlipidemia CAD with prior stent Hypothyroidism Anxiety Slurred speech Peripheral vascular disease with history of bypass Noncompliance with follow-up and medication Plan: Dyspnea secondary to acute on chronic CHF likely diastolic versus systolic complicated with anasarca, atrial fibrillation with RVR on chronic anticoagulation therapy, and Hypotension: Patient much improved after transfusion of 2 units of blood. Patient has gotten 3 units total. Hemoglobin now 8.7. Patient to have EGD today to evaluate for possible GI bleed. Patient now off Levophed. Diuretic therapy adjusted to twice daily. Will discuss with nephrology. Renal function improved. Continue Protonix. Patient remains on metoprolol 25 mg 1 pill twice daily to help with rate control. Hyponatremia improved. Will discuss with nephrology, pulmonology, cardiology and GI. Continue to hold Eliquis. Discussed with yesterday and patient with plan of care. Will recommend skilled placement likely next week. Hepatitis C with suspected cirrhosis complicated with significant anasarca and lower extremity edema: Patient is status post paracentesis. 2 L removed. So far cultures negative. Continue with above plan of care. Patient to have EGD today. Acute on chronic renal disease stage III with hyponatremia: Renal function and hyponatremia improved. IV diuretic therapy adjusted. Acute anemia with chronic disease with possible GI bleed: Hemoglobin improved with transfusion. Patient has received three total units of blood. Continue to hold Eliquis. Continue Protonix. EGD to be performed today. Await findings. Will discuss with GI later. Hypertension: Continue metoprolol with parameters in place. Will monitor and adjust appropriately. Hyperlipidemia: Continue with Lipitor. CAD with prior stent: Patient remains on metoprolol. Eliquis on hold. Hypothyroidism: Continue levothyroxine 50 mcg daily. Patient with poor compl iance Anxiety: Continue with medication as needed. Slurred speech: Resolved CT scan shows no evidence of stroke, patient is at risk for stroke. Continue with above plan of care. Peripheral vascular disease with history of bypass: Continue to hold Eliquis Noncompliance with follow-up and medication: Compliance with medication and follow-up addressed in detail. Will make sure patient is able to afford all his medications. Will need to make sure patient has close follow-up at discharge. Code Status: Full Code DVT prophylaxis: Request currently on hold due to anemia Advanced Care Planning-30 minutes: Need to consider skilled placement or LTAC. Patient and agreeable to possible skilled placement Time Spent Managing Pts Care (In Minutes): 55
[2020-12-23] MEDS: ARFORMOTEROL TARTRATE 15 MCG/2 ML VIAL.NEB NEB SCH ×2 (07:34→20:40)
[2020-12-23] MEDS ORDERED: HYDROMORPHONE HCL 0.5 MG/0.5 ML INJ ONE (08:46)
[2020-12-23] MEDS ORDERED: PANTOPRAZOLE 40 MG INJ ONE (08:46)
[2020-12-23] MEDS ORDERED: NS 0.9% VIAL 10 ML ONE (08:47)
[2020-12-23] MEDS: HYDROMORPHONE HCL 0.5 MG/0.5 ML INJ IV PRN (08:48)
[2020-12-23] MEDS: PANTOPRAZOLE 40 MG INJ IVP SCH (08:48)
[2020-12-23] MEDS: SUCRALFATE 1GM/10ML UCUP FT SCH ×4 (09:00→20:27)
[2020-12-23] MEDS ORDERED: FUROSEMIDE 20 MG/ 2ML VIAL IV SCH (09:00)
[2020-12-23] MEDS: FOLIC ACID 1 MG TABLET PO SCH (09:00)
[2020-12-23] MEDS: Rifaximin 550 MG Tab PO SCH ×2 (09:00→20:27)
[2020-12-23] MEDS: THIAMINE HCL 100 MG TABLET PO SCH (09:00)
--- NOTE | 2020-12-23 09:08 | P.CNS ---
Date of Consult: 12/22/20 Reason for Consult: Hyporension and ESLD Primary Care Provider: Dr. Baker; Cardiology-Dr. Rodrigez Chief Complaint: Shortness of breath History of Present Illness: Age 70 AW ESLD, ascites, afib and hypotension. S/P paracentesis, C/o SOB , Abdominal distension and LE edema. Hx of C Afib, PVD and CAD, COPD/ SOB worse pasr several days poss non compliance on Levophed Allergies acetaminophen [From Darvocet-N 100] Allergy (Verified 12/20/20 13:04) Rash propoxyphene [From Darvocet-N 100] Allergy (Verified 12/20/20 13:04) Rash Home Medications: Albuterol Sulfate [Proair Digihaler] 2 puff PRN PRN 12/20/20 Apixaban [Eliquis] 5 mg PO BID 12/20/20 Atorvastatin Calcium [Lipitor] 1 tab DAILY 12/20/20 Benzonatate 100 mg PO TID PRN 12/20/20 Cholecalciferol (Vitamin D3) [Vitamin D3] 2,000 unit PO BID 12/20/20 Gabapentin 300 mg PO DAILY 12/20/20 LORazepam [Ativan*] 1 tab .ROUTE DAILYPRN PRN 12/20/20 Levothyroxine Sodium [Synthroid] 0.05 mg PO BEDTIME 12/20/20 Metoprolol Tartrate 50 mg PO BID 12/20/20 hydroCHLOROthiazide [Hydrochlorothiazide] 25 mg PO QOD QID 12/20/20 - Past Medical/Surgical History -: Hypertension -: Hyperlipidemia -: Hepatitis C -: Atrial fibrillation on chronic anticoagulation therapy -: CHF -: Liver cirrhosis -: Peripheral vascular disease with prior bypass -: CAD with prior LAD stent -: LAD stent -: Bypass to the left femoral artery -: Hernia repair Psychosocial/ Personal History: Lives at home with - Social History Alcohol use: No CD- Drugs: No Caffeine use: No Place of Residence: Home Review of Systems General: Weakness Respiratory: Shortness of Breath Cardiovascular: Edema (sig LE edema) Gastrointestinal: Distention Physical Examination Temp Pulse Resp BP Pulse Ox 98.2 F 123 H 15 122/78 94 12/23/20 06:15 12/23/20 08:48 12/23/20 08:48 12/23/20 08:48 12/23/20 08:48 General: Alert, Moderate distress Respiratory: Clear to auscultation bilaterally, Diminished Cardiovascular: Edema Gastrointestinal: Normal bowel sounds, No rebound, No guarding, Distended - Problems (1) Cirrhosis of liver Current Visit: Yes Status: Acute Plan: 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 CRF NE of sepsis/ cultures all neg. transfused blood/ pt in Afib. titrate systolic 90 Qualifiers: Hepatic cirrhosis type: unspecified hepatic cirrhosis Ascites presence: with ascites Qualified Code(s): K74.60 - Unspecified cirrhosis of liver; R18.8 - Other ascites
[2020-12-23] MEDS ORDERED: ALBUMIN HUMAN 25% 100 ML IV ONE (11:45)
[2020-12-23] MEDS ORDERED: NA CHLORIDE 0.9% 1,000 ML ONE (13:43)
[2020-12-23] MEDS ORDERED: propofoL 200 MG/20 ML VIAL IV ONE (14:17)
[2020-12-23] MEDS ORDERED: EPINEPHRINE/PF 1 MG/ML AMP ONE (14:21)
[2020-12-23] MEDS ORDERED: CEFTRIAXONE 2 GM/100 ML IV ONE ×2 (15:00)
[2020-12-23] MEDS ORDERED: NS IV ONE ×2 (15:00)
[2020-12-23] MEDS ORDERED: OCTREOTIDE ACETATE 100 MCG/ML IV ONE (15:00)
--- NOTE | 2020-12-23 15:07 | ENDO RPT ---
[address], [address] EGD PROCEDURE REPORT EXAM DATE: 12/23/2020 PATIENT NAME: Sathya Ashby MR#: [id number] BIRTHDATE: 1950 ATTENDING: Phil Huerta Dr STATUS: inpatient - 7 CABLE TOOL OPERATOR: Rebekah Jay RN and Dinora Reyez RN INDICATIONS: The patient is a 70 yr old Male here for an EGD due to anemia and cirrhotic patient, pre-sclerotherapy PROCEDURE PERFORMED: EGD with banding MEDICATIONS: Per Anesthesia. TOPICAL ANESTHETIC: none CONSENT: The patient understands the risks and benefits of the procedure and understands that these risks include, but are not limited to: sedation, allergic reaction, infection, perforation and/or bleeding. Alternative means of evaluation and treatment include, among others: physical exam, x-rays, and/or surgical intervention. The patient elects to proceed with this endoscopic procedure. DESCRIPTION OF PROCEDURE: During intra-op preparation period all mechanical medical equipment was checked for proper function. Hand hygiene and appropriate measures for infection prevention was taken. Procedure, possible complications, and alternatives including but not limited to the possibility of bleeding, perforation, tear, infection, sepsis, need for surgery, need for blood transfusion, and anesthesia related complications were explained to the patient. After the risks, benefits and alternatives of the procedure were thoroughly explained, Informed consent was verified, confirmed and timeout was successfully executed by the treatment team. The patient was placed in the left lateral position. The patient was anesthetized with topical anesthesia. Through the anesthetized oropharyngeal area, the scope was passed without any difficulty. The EG-[id number] ([id number]) endoscope was introduced through the mouth and advanced to the second portion of the duodenum. Retroflexed views revealed no abnormalities. The gastroscope was then slowly withdrawn and removed. LA Class D esophagitis was found in the lower esophagus. Grade III varices were found in the lower esophagus. Grade II hemorrhagic Esophageal banding was performed. s/p banding X4 (7 attempted) Blood was found in the body of the stomach. Partially suctioned out with endoscope. ADVERSE EVENTS: There were no complications. IMPRESSIONS: 1. LA Class D esophagitis in the lower esophagus 2. Four columns of grade II to III varices in the lower esophagus, s/p banding X4 3. Large amount of dark heme fluid / black blood / clots in the body of the stomach - partially suctioned out with endoscope RECOMMENDATIONS: 1. ICU monitoring 2. PPI therapy 3. Cefriaxone IV 4. IV Octreotide drip 5. goal hgb 7-8 REPEAT EXAM: Return in 1 week(s) for EGD. Phil Huerta Dr eSigned: Phil Huerta Dr 12/23/2020 3:07 PM cc: Shreyas Mccann D.O. CPT CODES: ICD9 CODES: PATIENT NAME: Sathya Ashby MR#: [id number]
--- NOTE | 2020-12-23 15:08 | ENDO RPT ---
[address], [address] EGD PROCEDURE REPORT EXAM DATE: 12/23/2020 PATIENT NAME: Sathya Ashby MR#: [id number] BIRTHDATE: 1950 ATTENDING: Phil Huerta Dr STATUS: inpatient - 7 MANAGER TELECOM: Rebekah Jay RN and Dinora Reyez RN INDICATIONS: The patient is a 70 yr old Male here for an EGD due to anemia and cirrhotic patient, pre-sclerotherapy PROCEDURE PERFORMED: EGD with banding MEDICATIONS: Per Anesthesia. TOPICAL ANESTHETIC: none CONSENT: The patient understands the risks and benefits of the procedure and understands that these risks include, but are not limited to: sedation, allergic reaction, infection, perforation and/or bleeding. Alternative means of evaluation and treatment include, among others: physical exam, x-rays, and/or surgical intervention. The patient elects to proceed with this endoscopic procedure. DESCRIPTION OF PROCEDURE: During intra-op preparation period all mechanical medical equipment was checked for proper function. Hand hygiene and appropriate measures for infection prevention was taken. Procedure, possible complications, and alternatives including but not limited to the possibility of bleeding, perforation, tear, infection, sepsis, need for surgery, need for blood transfusion, and anesthesia related complications were explained to the patient. After the risks, benefits and alternatives of the procedure were thoroughly explained, Informed consent was verified, confirmed and timeout was successfully executed by the treatment team. The patient was placed in the left lateral position. The patient was anesthetized with topical anesthesia. Through the anesthetized oropharyngeal area, the scope was passed without any difficulty. The EG-[id number] ([id number]) endoscope was introduced through the mouth and advanced to the second portion of the duodenum. Retroflexed views revealed no abnormalities. The gastroscope was then slowly withdrawn and removed. LA Class D esophagitis was found in the lower esophagus. Grade III varices were found in the lower esophagus. Grade II hemorrhagic Esophageal banding was performed. s/p banding X4 (7 attempted) Blood was found in the body of the stomach. Partially suctioned out with endoscope. ADVERSE EVENTS: There were no complications. IMPRESSIONS: 1. LA Class D esophagitis in the lower esophagus 2. Four columns of grade II to III varices in the lower esophagus, s/p banding X4 3. Large amount of dark heme fluid / black blood / clots in the body of the stomach - partially suctioned out with endoscope RECOMMENDATIONS: 1. ICU monitoring 2. PPI therapy 3. Cefriaxone IV 4. IV Octreotide drip 5. goal hgb 7-8 REPEAT EXAM: Return in 1 week(s) for EGD. Phil Huerta Dr eSigned: Phil Huerta Dr 12/23/2020 3:08 PM Revised: 12/23/2020 3:08 PM cc: Shreyas Mccann D.O. CPT CODES: ICD9 CODES: PATIENT NAME: Sathya Ashby MR#: [id number]
[2020-12-23] MEDS: OCTREOTIDE 500 MCG in NA CHLORIDE 0.9% 500 ML IV SCH (16:14)
[2020-12-23] MEDS: PANTOPRAZOLE INJ 80 MG in NA CHLORIDE 0.9% 250 ML IV SCH (16:14)
[2020-12-23 16:51] LABS: Hematocrit 25.6 % (39.6-49.0)
--- NOTE | 2020-12-23 17:04 | P.PN ---
Date of Service: 12/23/20 Vital Signs Temp Pulse Resp BP Pulse Ox 97.2 F 109 H 18 96/57 L 99 12/23/20 15:37 12/23/20 15:37 12/23/20 15:37 12/23/20 15:37 12/23/20 13:00 Medications Acetaminophen (Acetaminophen 500 Mg Tab) 500 mg PO Q4HP PRN PRN Reason: TEMP > 101' F Hydrocodone Bitart/Acetaminophen (Hydrocodone/Apap 5/325 Mg Tab) 1 tab PO Q6H PRN PRN Reason: Pain scale 5-7 (Moderate) Last Admin: 12/21/20 07:59 Dose: 1 tab Documented by: Arformoterol Tartrate (Arformoterol Tartrate 15 Mcg/2 Ml Vial.Neb) 15 mcg NEB BIDRESP [facility] Last Admin: 12/23/20 07:34 Dose: 15 mcg Documented by: Atorvastatin Calcium (Atorvastatin 40 Mg Tab) 40 mg PO BEDTIME [facility] Last Admin: 12/22/20 20:21 Dose: 40 mg Documented by: Folic Acid (Folic Acid 1 Mg Tablet) 1 mg PO DAILY [facility] Last Admin: 12/23/20 09:00 Dose: Not Given Documented by: Furosemide (Furosemide 20 Mg/ 2ml Vial) 20 mg IV Q8H [facility] Last Admin: 12/23/20 12:00 Dose: Not Given Documented by: Hydromorphone HCl (Hydromorphone Hcl 0.5 Mg/0.5 Ml Inj) 0.5 mg IV Q6H PRN PRN Reason: Pain scale 5-7 (Moderate) Last Admin: 12/23/20 08:48 Dose: 0.5 mg Documented by: Sodium Chloride (Sodium Chloride) 250 mls @ 0 mls/hr IV .Q0M [facility] Last Admin: 12/21/20 06:47 Dose: 250 mls Documented by: Norepinephrine Bitartrate 4 mg (/ Dextrose) 250 mls @ 20 mls/hr IV PRN PRN; Protocol PRN Reason: HEMODYNAMIC PARAMETERS Last Admin: 12/22/20 23:34 Dose: 250 mls Documented by: Ceftriaxone Sodium 1,000 mg/ (Sodium Chloride) 50 mls @ 100 mls/hr IVPB DAILY [facility]; Protocol Pantoprazole Sodium 80 mg/ (Sodium Chloride) 250 mls @ 25 mls/hr IV Q10H [facility]; Protocol Last Admin: 12/23/20 16:14 Dose: 250 mls Documented by: Octreotide Acetate 500 mcg/ (Sodium Chloride) 500 mls @ 50 mls/hr IV Q10H [facility] Last Admin: 12/23/20 16:14 Dose: 500 mls Documented by: Ipratropium [place] (Ipratropium Brom 0.5mg/2.5ml) 0.5 mg NEB [id number] PRN PRN Reason: SHORTNESS OF BREATH Levothyroxine Sodium (Levothyroxine Sod 0.05 Mg Tablet) 0.05 mg PO DAILYAC [facility] Last Admin: 12/23/20 06:30 Dose: Not Given Documented by: Lorazepam (Lorazepam 0.5 Mg Tablet) 0.5 mg PO BID PRN PRN Reason: ANXIETY Ondansetron HCl (Ondansetron 4 Mg/2 Ml Vial) 4 mg IV Q6HP PRN PRN Reason: NAUSEA / VOMITING Last Admin: 12/20/20 16:09 Dose: 4 mg Documented by: Rifaximin (Rifaximin 550 Mg Tab) 550 mg PO BID [facility]; Protocol Last Admin: 12/23/20 09:00 Dose: Not Given Documented by: Sodium Chloride (Flush Normal Saline 10 Ml) 10 ml IV BID [facility] Last Admin: 12/23/20 08:49 Dose: 10 ml Documented by: Sodium Chloride (Sodium Chloride 0.9% 10ml Inj) 10 ml IV UD PRN PRN Reason: Diluant Sucralfate (Sucralfate 1gm/10ml Ucup) 1 gm FT QID [facility] Last Admin: 12/23/20 11:41 Dose: Not Given Documented by: Thiamine HCl (Thiamine Hcl 100 Mg Tablet) 100 mg PO DAILY [facility] Last Admin: 12/23/20 09:00 Dose: Not Given Documented by: Tramadol HCl (Tramadol Hcl 50 Mg Tab) 50 mg PO TID PRN PRN Reason: Pain scale 2-4 (Mild) Microbiology Results 12/20/20 10:25 Blood - Blood Aerobic Blood Culture - Preliminary No growth in 24 hours. 12/20/20 10:25 Blood - Blood Anaerobic Blood Culture - Preliminary No growth in 24 hours. Assessment/ Plan: Nephrology No dyspnea. CORONEL No chest pain Malaise and weakness but feeling better today. No acute events overnight Vitals, medications, blood work and imaging reviewed in the chart General: Oriented x3, Cooperative HEENT: Atraumatic Neck: Supple Respiratory: Diminished Cardiovascular: Regular rate/rhythm, Edema Gastrointestinal: Hypoactive, Distended Musculoskeletal: No clubbing, No contractures Integumentary: No rashes, No cyanosis Neurological: Normal speech Laboratory Data (last 24 hrs) 12/20/20 09:48: PT 15.4 H, INR 1.34 12/20/20 09:48: WBC 5.40, Hgb 8.4 L, Hct 25.1 L, Plt Count 159 12/20/20 09:48: Sodium 128 L, Potassium 4.7, BUN 23 H, Creatinine 1.53 H, Glucose 85, Magnesium 2.0, Total Bilirubin 1.6 H, AST 77 H, ALT 35, Alkaline Phosphatase 65 Imagings Data: EXAM DESCRIPTION: RAD - Chest Single View - 12/21/2020 5:59 am CLINICAL HISTORY: Follow up CHF COMPARISON: Chest Single View dated 12/20/2020; Chest Abd Pelvis Wo Con dated 12/20/2020 FINDINGS: Lines: None. Lungs: Mild increased opacity the left lung base. The lung volumes are slightly less as well. Pleural: Difficult to exclude a small left pleural effusion. Cardiac: Cardiomegaly. Bones: No acute fractures. Other: IMPRESSION: Mild increased left basilar opacities likely representing atelectasis. No definite edema identified . EXAM DESCRIPTION: CT - Chest Abd Pelvis Wo Con - 12/20/2020 12:56 pm CLINICAL HISTORY: ABDOMINAL DISTENTION, chest pain COMPARISON: No comparisons TECHNIQUE: Axial 5 millimeter thick images of the chest, abdomen and pelvis were obtained without IV contrast. Oral contrast was administered. All CT scans are performed using dose optimization technique as appropriate and may include automated exposure control or mA/KV adjustment according to patient size. FINDINGS: Fibrotic stranding and atelectasis changes are present in the lung bases. An 11 millimeter nodular focus abuts the right diaphragmatic pleura. No clearly malignant mass seen in the chest. There is an 8 centimeter thin-walled fluid collection in the medial right chest along the pleural margin. This extends from the hilum to the diaphragm. There is atelectasis along the lateral margin. Lateral left gutter atelectasis changes are present. Lateral lung base pneumonia is not excluded but lesser in likelihood. There is a trace amount of left pleural effusion. No pneumothorax. No pleural based mass. No chest wall mass or abnormal axillary lymphadenopathy seen. Mediastinal and hilar regions show no mass or lymphadenopathy. No significant cardiac finding. Liver is small with the left lobe prominent relative to the right. There is a pronounced nodularity of the liver capsule. A few parenchymal calcifications are present. This is an advanced cirrhotic liver pattern. No focal liver lesions seen though noncontrast imaging is diminished in sensitivity for lesion detection. No biliary tree dilatation. Gallbladder is difficult to distinguish from the ascites. Dilatation of the gallbladder is not suspected. Numerous calcifications present in a normal size spleen. No focal splenic lesion on noncontrast imaging imaging . Pancreas is poorly visualized. Primary pancreatic process is not suspected. No hydronephrosis or suspicious renal mass. Isodense masses and pyelonephritis cannot be excluded on non contrast imaging. No adrenal abnormalities. Urinary bladder is fully contracted around a Suárez catheter. No dilated bowel loops or focal ball bowel wall thickening. No free air or pneumatosis. Colonic diverticulosis is present. Much of the bowel is isodense to the ascites. Posterior distal rectal wall near the anus is poorly visualized. The oblique imaging angle through the distal rectum accentuates wall thickness. Patient has a very large volume of ascites filling the peritoneal cavity. No omental thickening seen. Fluid retention is present in the subcutaneous fatty tissues. No mass or bulky lymphadenopathy. Disc and bone degenerative changes are present not unremarkable for patient age. Dense arterial tree calcifications are present. IMPRESSION: Large volume of ascites present with advanced cirrhotic changes in the liver. No focal liver lesions seen though sensitivity is limited in the absence of IV contrast. No bowel obstruction, free air or emergent CT chest, abdomen or pelvis finding. Additional nonacute findings detailed in the body of the report. CT abdomen and pelvis imaging shows no significant or suspicious finding. EXAM DESCRIPTION: US - Extrem Venous W Compress Deepak - 12/20/2020 12:22 pm CLINICAL HISTORY: SWELLING Bilateral leg edema and swelling. COMPARISON: Lower Extremity Arterial Bilat dated 09/17/2017 TECHNIQUE: Real-time sonographic interrogation of the left and right lower extremity deep venous systems was performed. FINDINGS: Normal compressibility, flow augmentation, phasic flow and spontaneous flow is identified in both the left and right lower extremity deep venous systems. 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 IMPRESSION: No sonographic evidence of left or right lower extremity deep venous thrombosis. Conclusions/Impression: ADILENE in the setting of hypotension & anasarca CKD III with proteinuria -Lasix 20mg IV q8h as tolerated Hyponatremia -Continue Lasix IV Hyperkalemia -Continue Lasix Hypotension -IV Albumin prn -Vasopressor therapy as needed Diastolic CHF, A/C Anasarca -Echocardiogram pending -Continue Lasix -Low sodium diet Severe malnutrition Hypoalbuminemia -Give IV Albumin prn -Consider protein supplementation Anemia in chronic illness -Transfuse PRBC as needed -Retacrit X1 Liver cirrhosis with ascites HCV -Monitor LFT
[2020-12-23] MEDS ORDERED: NA CHLORIDE 0.9% 250 ML ONE (17:24)
[2020-12-23] MEDS: NA CHLORIDE 0.9% 250 ML IV SCH (17:26)
[2020-12-23] MEDS ORDERED: EPOETIN ALFA-EPBX 10,000 UNIT/ML VIAL SQ ONE (18:00)
--- NOTE | 2020-12-23 19:55 | CON ---
Date of Consultation: 12/21/2020 Reason For Consultation: Cirrhosis with ascites and anemia. History Of Present Illness: The patient is a 70-year-old white male with history of hypertension; ch ronic kidney disease; atrial fibrillation, on Eliquis; congestive heart failure. The patient present ed to the hospital due to shortness of breath, brought to ICU, found to have ascites with shortness o f breath, also with anemia and decreasing hemoglobin after further evaluation and care. Past Medical History: Significant for hypertension; chronic kidney disease; hepatitis C; newly diagn osed gastric reflux disease; hiatal hernia; atrial fibrillation, on Eliquis with rapid ventricular re sponse; coronary artery disease with prior stent;, peripheral vascular disease; and COPD. Medications: Medications in hospital, see list. The patient is on in the hospital medications include Tylenol, [place], Eliquis, Brovana, Lipitor, folic acid, Lasix, Dilaudid, Atrovent, Synthroid, Ativan, norepinephrine, Zofran, Protonix, Xifaxan, Carafate, vitamin B one time, Ultram p.r.n. Allergies: TO TYLENOL. WE HAVE TO DISCONTINUE HIS TYLENOL. Social History: He is , 2 children. No tobacco. No alcohol. Family History: Father when he was 11 years old. Mother of lung cancer, congestive heart f ailure. Review of Systems: The patient has shortness of breath, increased abdominal girth and tight abdomen atrial fibrillation. He denies chest pain, seizure, syncope. Does have lower extremity edema and feels like his body is swollen up in the chart. He reports anasarca. He denies any melena, hematochezia, hematemesis, cof fee-ground emesis, hematuria, dysuria, polydipsia, hemoptysis. He denies seeing any blood whatsoever . Hemoglobin is decreasing. No depression or anxiety noted. Physical Examination: Vital Signs: The patient has a temperature of 97.7 degrees Fahrenheit, pulse 107, blood pressure 95/ 63, was as low as a 63/51 earlier after metoprolol and 40 IV of Lasix earlier today overnight and now has given albumin and some IV fluids. His blood pressures come up to 95/63 in the room. The patien t is scheduled to get more albumin and will get some blood today too with his hemoglobin decreased to 6.8. General: He is an elderly male, lying in bed, no acute distress. Talking to his . HEENT: Somewhat pale. Pupils are equal, round, and reactive to light. Extraocular movements are in tact. Oropharynx is somewhat dry. Mucous membranes dry. Neck: Supple. No masses, respirations, labored breathing. Decreased breath sounds in bases. CARDIAC EXAM: Irregularly irregular. Tachycardic with a pulse of 100-110. ABDOMEN: Hypoactive bowel sounds. Markedly distended with a taut abdomen, to undergo paracentesis t caden. EXTREMITIES: Positive for edema 3 to 3+ at least in the lower extremities. Upper extremities 1+. S ome edema in the other torso wall as well. NEURO: He is and oriented x3. Able to move all extremities well. Laboratory Data: The patient has a white count of 6.6, hemoglobin down to 7.6 today, hematocrit 23.2 , MCV of 96, platelet count 149, polys of 77%, lymphocytes 11%, monocytes 11%. PT of 15.4, INR of 1. 34. Sodium 131, potassium 5.3, chloride 98, bicarb 24, BUN of 31, creatinine of 1.8, glucose 101, ur ic acid of 8.5, calcium 8.3, phosphorus of 5.5, magnesium 3.0. Total bilirubin of 1.9, AST of 59, AL T of 31, alkaline phosphatase 55. CK-MB of 6.3, troponin-I of less than 0.02. Total protein 7.0, al bumin 1.7. Triglyceride of 45, cholesterol 88, LDL of 49, HDL of 30. TSH of 14.8, free T4 of 1.64. UA shows 2+ blood, 2+ leukocyte esterase, 5-10 rbc's, 10-20 white blood cells, no squamous epithelia l cells, less than 20 bacteria. Rapid COVID testing on the was negative. CT of chest, abdomen, and pelvis not available at this time. Impression: 1.Cirrhosis with ascites secondary to hepatitis C, acute on chronic congestive heart failure. Hepat itis C is a new recent diagnosis. 2.Hepatitis C, new recent diagnosis. No prior treatment. We will need to teat patient as outpatien t if possible. 3.Acute on chronic congestive heart failure. The patient has history of noncompliance with medical therapy as per chart review. 4.Anasarca with ascites secondary to hepatitis C, cirrhosis, and also congestive heart failure. 5.Atrial fibrillation, on Eliquis with rapid ventricular response. 6.Hypotension after Lasix and metoprolol yesterday, his blood pressure has come up from the 70s into the 90s now with IV albumin and stopping the Lasix and metoprolol given low IV fluids. 7.History of hypertension, chronic kidney disease, coronary artery disease, status post stent, perip heral vascular disease, chronic obstructive pulmonary disease, congestive heart failure, now with exa cerbation. Recommendations: 1.Consider diuretics with Aldactone more than Lasix once hypotension has resolved. The patient is s table. 2.Agree with ultrasound-guided paracentesis. Would also send for studies including Gram stain, cell count, culture, total protein, albumin, and amylase. 3.Start Xifaxan, has mortality benefit of 550 p.o. b.i.d., may need refill as well if his encephalopathy progresses. 4.Agree with IV albumin. 5.Hold IV normal saline for limit this as most to 250 cc as this will exacerbate his ascites again. 6.Hold metoprolol. In addition would also consider digoxin in this patient with atrial fibrillation or other such as amiodarone. 7.Low sodium diet and 1.5 L fluid restriction. The patient has anemia. Will need to consider EGD, colonoscopy as well, though patient denies any blood, check Hemoccult stool x3 as well. PEREZ/ROB Voice ID: [id number] Report ID: [id number]
[2020-12-23] MEDS: ATORVASTATIN 40 MG TAB PO SCH (20:27)
[2020-12-23] MEDS ORDERED: ARFORMOTEROL TARTRATE 15 MCG/2 ML VIAL.NEB ONE (20:38)
--- NOTE | 2020-12-23 20:47 | EKG ---
Test Date: 2020-12-20 Test Time: 09:35:35 Waiter/Waitress Captain: JR Omer MEASUREMENT RESULTS: Intervals: Rate: 158 ID: QRSD: [id number] QT: 296 QTc: 480 Edna: P: ID: [id number] T: -5 INTERPRETIVE STATEMENTS: Atrial fibrillation with rapid ventricular response Abnormal QRS-T angle, consider primary T wave abnormality Abnormal ECG Compared to ECG 07/26/1997 14:32:00 T-wave abnormality now present Sinus bradycardia no longer present Electronically Signed On 12-23-20 20:36:10 TUMBLE TAILSTOCK TURRET LATHE OPERATOR by Moreno Rodrigez
[2020-12-23 21:00] LABS: MPV 7.6 fL (7.6-11.3)
[2020-12-24] MEDS: OCTREOTIDE 500 MCG in NA CHLORIDE 0.9% 500 ML IV SCH ×3 (01:02→22:00)
[2020-12-24] MEDS: PANTOPRAZOLE INJ 80 MG in NA CHLORIDE 0.9% 250 ML IV SCH ×3 (01:04→20:40)
[2020-12-24] MEDS: FUROSEMIDE 20 MG/ 2ML VIAL IV SCH ×3 (04:00→20:00)
[2020-12-24] MEDS ORDERED: FUROSEMIDE 40 MG/4 ML VIAL ONE ×2 (05:02→19:56)
[2020-12-24] MEDS: LEVOTHYROXINE SOD 0.05 MG TABLET PO SCH (05:09)
[2020-12-24] MEDS ORDERED: HYDROMORPHONE HCL 0.5 MG/0.5 ML INJ ONE ×3 (05:18→21:58)
[2020-12-24] MEDS: HYDROMORPHONE HCL 0.5 MG/0.5 ML INJ IV PRN ×3 (05:25→22:19)
[2020-12-24 05:40] LABS: Absolute Lymphocytes (CBC) 0.4 K/uL (0.7-4.9); Basophils % 0.5 % (0-1.3); Hematocrit 24.5 % (39.6-49.0); Lymphocytes % 8.5 % (15.3-44.8); MPV 8.3 fL (7.6-11.3); RBC Red Blood Cell Count 2.63 M/uL (4.33-5.43)
[2020-12-24 05:59] LABS: Albumin 2.4 g/dL (3.4-5.0); Bilirubin Total 3.1 mg/dL (0.2-1.0); Magnesium 1.5 mg/dL (1.8-2.4); Potassium 3.5 mmol/L (3.5-5.1); Protein, Total 5.8 g/dL (6.4-8.2)
--- NOTE | 2020-12-24 06:01 | P.PN ---
Subjective Date of Service: 12/24/20 Primary Care Provider: Dr. Baker; Cardiology-Dr. Rodrigez Chief Complaint: Shortness of breath Subjective: Other (Patient improved. Patient off Levophed. Heart rate still around 100-1 20. Patient remains on clear liquid diet. Patient also on Protonix drip, octreotide, antibiotic therapy, and diuretic.) Physical Examination - Vital Signs Temperature: 97.9 F Blood Pressure: 122/81 Pulse: 130 Respirations: 20 Pulse Ox (%): 96 Assessment & Plan Discharge Plan: Other (LTAC versus skilled placement versus home) Plan to discharge in: Greater than 2 days Physician Review Additional Text: COVID: negative Chest x-ray: COMPARISON: No comparisons FINDINGS: Portable technique limits examination quality. Mild interstitial pulmonary edema is seen. Linear opacities in the left lung base laterally probably represent atelectasis. The heart is prominent in size. A large hiatal hernia is likely present appear No displaced fractures. Venous doppler: COMPARISON: Lower Extremity Arterial Bilat dated 09/17/2017 TECHNIQUE: Real-time sonographic interrogation of the left and right lower extr emity deep venous systems was performed. FINDINGS: Normal compressibility, flow augmentation, phasic flow and spontaneous flow is identified in both the left and right lower extremity deep venous systems. 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 IMPRESSION: No sonographic evidence of left or right lower extremity deep venous thrombosis. CT head: COMPARISON: Chest Abd Pelvis Wo Con dated 12/20/2020 TECHNIQUE: Axial 5 mm thick images of the head were obtained without IV contrast. All CT scans are performed using dose optimization technique as appropriate and may include automated exposure control or mA/KV adjustment according to patient size. FINDINGS: No intracranial hemorrhage, mass, edema or shift of mid-line structures. No acute cortical based infarction identified. No cortical edema or sulcal effacement. Diminished attenuation the left external capsule and insular cortex region is most likely remote. There are scattered chronic ischemic changes in the cerebral white matter. No abnormal extra-axial fluid collections. Mild to moderate for age atrophy changes are present. Ventricles are in proportion to the volume loss. Patient has dense arterial tree calcifications. Mastoid air cells and visualized portions of the paranasal sinuses are clear. No acute bony findings. IMPRESSION: No intracranial hemorrhage, mass or emergent intracranial CT finding. Atrophy and chronic ischemic changes are present with focal ischemic changes in the left external capsule and insular cortex region. Chronic ischemic changes can mask nonhemorrhagic acute infarction. MR brain followup can be obtained if there is ongoing concern for acute ischemia. CT chest/abdomen and pelvis: COMPARISON: No comparisons TECHNIQUE: Axial 5 millimeter thick images of the chest, abdomen and pelvis were obtained without IV contrast. Oral contrast was administered. All CT scans are performed using dose optimization technique as appropriate and may include automated exposure control or mA/KV adjustment according to patient size. FINDINGS: Fibrotic stranding and atelectasis changes are present in the lung bases. An 11 millimeter nodular focus abuts the right diaphragmatic pleura. No clearly malignant mass seen in the chest. There is an 8 centimeter thin-walled fluid collection in the medial right chest along the pleural margin. This extends from the hilum to the diaphragm. There is atelectasis along the lateral margin. Lateral left gutter atelectasis changes are present. Lateral lung base pneumonia is not excluded but lesser in likelihood. There is a trace amount of left pleural effusion. No pneumothorax. No pleural based mass. No chest wall mass or abnormal axillary lymphadenopathy seen. Mediastinal and hilar regions show no mass or lymphadenopathy. No significant cardiac finding. Liver is small with the left lobe prominent relative to the right. There is a pronounced nodularity of the liver capsule. A few parenchymal calcifications are present. This is an advanced cirrhotic liver pattern. No focal liver lesions seen though noncontrast imaging is diminished in sensitivity for lesion detection. No biliary tree dilatation. Gallbladder is difficult to distinguish from the ascites. Dilatation of the gallbladder is not suspected. Numerous c alcifications present in a normal size spleen. No focal splenic lesion on noncontrast imaging imaging . Pancreas is poorly visualized. Primary pancreatic process is not suspected. No hydronephrosis or suspicious renal mass. Isodense masses and pyelonephritis cannot be excluded on non contrast imaging. No adrenal abnormalities. Urinary bladder is fully contracted around a Suárez catheter. No dilated bowel loops or focal ball bowel wall thickening. No free air or pneumatosis. Colonic diverticulosis is present. Much of the bowel is isodense to the ascites. Posterior distal rectal wall near the anus is poorly visualized. The oblique imaging angle through the distal rectum accentuates wall thickness. Patient has a very large volume of ascites filling the peritoneal cavity. No omental thickening seen. Fluid retention is present in the subcutaneous fatty tissues. No mass or bulky lymphadenopathy. Disc and bone degenerative changes are present not unremarkable for patient age. Dense arterial tree calcifications are present. IMPRESSION: Large volume of ascites present with advanced cirrhotic changes in the liver. No focal liver lesions seen though sensitivity is limited in the abse nce of IV contrast. No bowel obstruction, free air or emergent CT chest, abdomen or pelvis finding. Additional nonacute findings detailed in the body of the report. CT abdomen and pelvis imaging shows no significant or suspicious finding. Paracentesis: COMPARISON: No comparisons FINDINGS: Informed consent was obtained and time-out was performed. Patient's abdomen was prepped and draped in the usual sterile fashion. 1% lidocaine was used for local anesthetic purposes. A small skin incision was made. A paracentesis catheter was guided into the peroneal cavity under sonographic guidance. A small amount of fluid was sent for requested lab studies. A large volume paracentesis was performed. The patient tolerated the procedure well. Patient was administered IV albumin per protocol following the procedure. IMPRESSION: Successful ultrasound-guided paracentesis. EGD: Findings: 1. LA class D esophagitis in the lower esophagus 2. 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 Large amount of dark heme fluid/blacks blood/clots in the body of the stomach, partially suctioned out with endoscopy Physical Exam: GENERAL: Patient appears older than his stated age. Patient alert and cooperative. Currently on nasal cannula. VITAL SIGNS: Reviewed. Blood pressure stable at this time. Now off Levophed. HEENT: neck supple. Dry mouth LUNGS: Better air movement bilateral. Currently on 2 L per nasal cannula HEART: Atrial fibrillation rate around 100-120 ABDOMEN: Patient with ascites EXTREMITIES: Edema to the lower extremities improved NEUROLOGIC: Patient alert, cooperative. No focal deficits. No slurred speech. SKIN: As above. Significant edema to the lower extremity. Impression: Dyspnea secondary to acute on chronic CHF likely diastolic versus systolic complicated with anasarca, atrial fibrillation with RVR on chronic ant icoagulation therapy, and Hypotension related to volume depletion and GI bleed Hepatitis C with suspected cirrhosis complicated with significant anasarca and lower extremity edema Acute on chronic renal disease stage III with hyponatremia Acute anemia with chronic disease with possible GI bleed Hypertension Hyperlipidemia CAD with prior stent Hypothyroidism Anxiety Slurred speech Peripheral vascular disease with history of bypass Noncompliance with follow-up and medication Plan: Dyspnea secondary to acute on chronic CHF likely diastolic versus systolic c omplicated with anasarca, atrial fibrillation with RVR on chronic anticoagulation therapy, and Hypotension related to volume depletion and GI bleedLA class D esophagitis/grade 2-3 varices with banding: Patient overall improved. Patient has received 3 units of blood. Hemoglobin 8.0. Maintain hemoglobin above 7.5. Patient had EGD yesterday. EGD showed esophagitis in the lower esophagus, grade 2-3 varices noted with banding. Some blood/clots were removed with suction. Spoke with GI at length. GI recommends to continue to hold anticoagulation therapy. GI recommends to continue clear liquid diet. GI recommends to continue Protonix drip, octreotide drip and Rocephin. We will continue to monitor closely. Patient now off Levophed. Patient with atrial fibrillation with rate around 100-1 20. Will restart metoprolol at 12.5 mg 1 pill twice daily along with digoxin daily. Will discuss with cardiology. Will obtain echocardiogram. Case discussed with nephrology yesterday. Nephrology recommends to continue with diuresis. Currently on Lasix 20 mg IV 3 times daily. Spoke at length with the patient concerning plan of care. He wants his to help make decisions. Need to rediscuss the possibility of long-term acute care facility placement versus skilled placement versus home. Also need to rediscuss advanced directives. Patient with multiple chronic conditions with poor chronic prognosis. Hepatitis C with suspected cirrhosis complicated with significant anasarca and lower extremity edema: Patient is status post paracentesis. 2 L removed. So far cultures negative. Continue with above plan of care. Continue with GI recommendations. Acute on chronic renal disease stage III with hyponatremia: Renal function and hyponatremia improved. Continue IV diuretic therapy. Currently on Lasix 20 mg 3 times a day IV. 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 Continue to maintain hemoglobin above 7.5. GI recommends to continue clear liquid diet. Patient now on Protonix drip, octreotide drip, and Rocephin. Continue to hold anticoagulation therapyEliquis. Continue with GI recommendation. Hypertension: Restart metoprolol 12.5 mg 1 pill twice daily. Patient off Levophed. CAD with prior stent: Continue with metoprolol. Hypothyroidism: Continue levothyroxine 50 mcg daily. Patient with poor compliance Anxiety: Continue with medication as needed. Slurred speech: Resolved CT scan shows no evidence of stroke, patient is at risk for stroke. Continue with above plan of care. Peripheral vascular disease with history of bypass: Continue to hold Eliquis Noncompliance with follow-up and medication: Compliance with medication and follow-up addressed in detail. Will make sure patient is able to afford all his medications. Will need to make sure patient has close follow-up at discharge. Code Status: Full Code DVT prophylaxis: SCD. Continue to hold Eliquis and anticoagulation therapy due to EGD finding Advanced Care Planning-30 minutes: Need to rediscuss plan of care with patient and . Need to consider LTAC versus skilled placement versus home. Need to rediscuss CODE STATUS. Time Spent Managing Pts Care (In Minutes): 55
[2020-12-24] MEDS ORDERED: Magnesium Sulfate 2gm IVPB 2 G/50 ML BAG IV ONE ×2 (08:15→09:37)
[2020-12-24] MEDS ORDERED: KCL 20 MEQ/100 mL IVPB 20 MEQ/100 ML BAG IV SCH (09:00)
[2020-12-24] MEDS ORDERED: ARFORMOTEROL TARTRATE 15 MCG/2 ML VIAL.NEB ONE ×2 (09:05→20:26)
[2020-12-24] MEDS: ARFORMOTEROL TARTRATE 15 MCG/2 ML VIAL.NEB NEB SCH ×2 (09:11→20:00)
[2020-12-24] MEDS ORDERED: THIAMINE HCL 100 MG TABLET ONE (09:36)
[2020-12-24] MEDS ORDERED: FOLIC ACID 1 MG TABLET ONE (09:36)
[2020-12-24] MEDS ORDERED: DIGOXIN 0.25 MG/ML AMP ONE (09:36)
[2020-12-24] MEDS ORDERED: METOPROLOL TAR 25 MG TAB ONE (09:36)
[2020-12-24] MEDS ORDERED: DIGOXIN 0.25 MG TABLET ONE (09:36)
[2020-12-24] MEDS ORDERED: KCL 20 MEQ/100 mL IVPB 20 MEQ/100 ML BAG IV ONE (09:37)
[2020-12-24] MEDS: CEFTRIAXONE 1,000 MG in NA CHLORIDE 0.9% 50 ML IVPB SCH (09:53)
[2020-12-24] MEDS: THIAMINE HCL 100 MG TABLET PO SCH (09:54)
[2020-12-24] MEDS: METOPROLOL TAR 25 MG TAB PO SCH ×2 (09:54→18:00)
[2020-12-24] MEDS: SUCRALFATE 1GM/10ML UCUP FT SCH ×4 (09:54→21:00)
[2020-12-24] MEDS: FOLIC ACID 1 MG TABLET PO SCH (09:55)
[2020-12-24] MEDS: Rifaximin 550 MG Tab PO SCH ×2 (09:55→21:00)
[2020-12-24] MEDS: DIGOXIN 0.125 MG TABLET PO SCH (09:57)
[2020-12-24] MEDS ORDERED: FUROSEMIDE 20 MG/ 2ML VIAL ONE (13:18)
--- OUTSIDE RECORDS SUMMARY | 2020-12-24 17:57 | XMS REPORT | Continuity of Care Document ---
:1950 Author Organization [facility] t Address [address] [place] [address] [address] [place] [address] Care Team Providers Name Role Phone AMY EUCEDA Attending Clinician Unavailable ANKUR CARDOZO Admitting Clinician Unavailable Problems This patient has no known problems. Allergies, Adverse Reactions, Alerts This patient has no known allergies or adverse reactions. Medications This patient has no known medications. Procedures This patient has no known procedures. Results Test Description Test Time Test Comments Results Result Comments Source MAGNESIUM 2017-11-05 05:31:00 Test Item Value Reference Range Interpretation Comme nts MAGNESIUM (BEAKER) (test code = 627) 1.8 mg/dL 1.6-2.6 BASIC METABOLIC [id number] 05:31:00 Test Item Value Reference Range Interpretation Comments SODIUM (BEAKER) 132 meq/L 136-145 L (test code = 381) POTASSIUM (BEAKER) 3.7 meq/L 3.5-5.1 (test code = 379) CHLORIDE (BEAKER) 104 meq/L 98-107 (test code = 382) CO2 (BEAKER) (test 23 meq/L 22-29 code = 355) BLOOD UREA NITROGEN 14 mg/dL 7-21 (BEAKER) (test code = 354) CREATININE (BEAKER) 0.75 mg/dL 0.57-1.25 (test code = 358) GLUCOSE RANDOM 95 mg/dL 70-105 (BEAKER) (test code = 652) CALCIUM (BEAKER) 7.8 mg/dL 8.4-10.2 L (test code = 697) EGFR (BEAKER) (test 105 mL/min/1.73 ESTIM ATED GFR IS code = 1092) sq m NOT ACCURATE CREATININE CLEARANCE IN PREDICTING GLOMERULAR FILTRATION RATE . ESTIMATED GFR I S NOT APPLICABLE FOR DIALYSIS TAWANDA TS. CBC W/PLT COUNT & AUTO [id number] 05:10:00 Test Item Value Reference Range Interpretation Comments WHITE BLOOD CELL COUNT (BEAKER) 6.7 K/ L 3.5-10.5 (test code = 775) RED BLOOD CELL COUNT (BEAKER) 2.83 M/ L 4.63-6.08 L (test code = 761) HEMOGLOBIN (BEAKER) (test code = 9.0 GM/DL 13.7-17.5 L 410) HEMATOCRIT (BEAKER) (test code = 28.1 % 40.1-51.0 L 411) MEAN CORPUSCULAR VOLUME (BEAKER) 99.3 fL 79.0-92.2 H (test code = 753) MEAN CORPUSCULAR HEMOGLOBIN 31.8 pg 25.7-32.2 (BEAKER) (test code = 751) MEAN CORPUSCULAR HEMOGLOBIN CONC 32.0 GM/DL 32.3-36.5 L (BEAKER) (test code = 752) RED CELL DISTRIBUTION WIDTH 20.1 % 11.6-14.4 H (BEAKER) (test code = 412) PLATELET COUNT (BEAKER) (test 132 K/CU MM 150-450 L code = 756) MEAN PLATELET VOLUME (BEAKER) 11.4 fL 9.4-12.4 (test code = 754) NUCLEATED RED BLOOD CELLS 0 /100 WBC 0-0 (BEAKER) (test code = 413) NEUTROPHILS RELATIVE PERCENT 64 % (BEAKER) (test code = 429) LYMPHOCYTES RELATIVE PERCENT 23 % (BEAKER) (test code = 430) MONOCYTES RELATIVE PERCENT 10 % (BEAKER) (test code = 431) EOSINOPHILS RELATIVE PERCENT 2 % (BEAKER) (test code = 432) BASOPHILS RELATIVE PERCENT 0 % (BEAKER) (test code = 437) NEUTROPHILS ABSOLUTE COUNT 4.32 K/ L 1.78-5.38 (BEAKER) (test code = 670) LYMPHOCYTES ABSOLUTE COUNT 1.54 K/ L 1.32-3.57 (BEAKER) (test code = 414) MONOCYTES ABSOLUTE COUNT (BEAKER) 0.65 K/ L 0.30-0.82 (test code = 415) EOSINOPHILS ABSOLUTE COUNT 0.15 K/ L 0.04-0.54 (BEAKER) (test code = 416) BASOPHILS ABSOLUTE COUNT (BEAKER) 0.02 K/ L 0.01-0.08 (test code = 417) IMMATURE GRANULOCYTES-RELATIVE 1 % 0-1 PERCENT (BEAKER) (test code = 2801) [id number] 05:02:00 Test Item Value Reference Range Interpretation Comments PARTIAL THROMBOPLASTIN TIME 32.0 seconds 22.5-36.0 (BEAKER) (test code = 760) CBC W/PLT COUNT & AUTO [id number] 04:55:00 Test Item Value Reference Range Interpretation Comments WHITE BLOOD CELL COUNT (BEAKER) 7.1 K/ L 3.5-10.5 (test code = 775) RED BLOOD CELL COUNT (BEAKER) 2.75 M/ L 4.63-6.08 L (test code = 761) HEMOGLOBIN (BEAKER) (test code = 8.8 GM/DL 13.7-17.5 L 410) HEMATOCRIT (BEAKER) (test code = 27.3 % 40.1-51.0 L 411) MEAN CORPUSCULAR VOLUME (BEAKER) 99.3 fL 79.0-92.2 H (test code = 753) MEAN CORPUSCULAR HEMOGLOBIN 32.0 pg 25.7-32.2 (BEAKER) (test code = 751) MEAN CORPUSCULAR HEMOGLOBIN CONC 32.2 GM/DL 32.3-36.5 L (BEAKER) (test code = 752) RED CELL DISTRIBUTION WIDTH 20.1 % 11.6-14.4 H (BEAKER) (test code = 412) PLATELET COUNT (BEAKER) (test 129 K/CU MM 150-450 L code = 756) MEAN PLATELET VOLUME (BEAKER) 11.1 fL 9.4-12.4 (test code = 754) NUCLEATED RED BLOOD CELLS 0 /100 WBC 0-0 (BEAKER) (test code = 413) NEUTROPHILS RELATIVE PERCENT 64 % (BEAKER) (test code = 429) LYMPHOCYTES RELATIVE PERCENT 22 % (BEAKER) (test code = 430) MONOCYTES RELATIVE PERCENT 10 % (BEAKER) (test code = 431) EOSINOPHILS RELATIVE PERCENT 3 % (BEAKER) (test code = 432) BASOPHILS RELATIVE PERCENT 0 % (BEAKER) (test code = 437) NEUTROPHILS ABSOLUTE COUNT 4.53 K/ L 1.78-5.38 (BEAKER) (test code = 670) LYMPHOCYTES ABSOLUTE COUNT 1.57 K/ L 1.32-3.57 (BEAKER) (test code = 414) MONOCYTES ABSOLUTE COUNT (BEAKER) 0.71 K/ L 0.30-0.82 (test code = 415) EOSINOPHILS ABSOLUTE COUNT 0.18 K/ L 0.04-0.54 (BEAKER) (test code = 416) BASOPHILS ABSOLUTE COUNT (BEAKER) 0.03 K/ L 0.01-0.08 (test code = 417) IMMATURE GRANULOCYTES-RELATIVE 0 % 0-1 PERCENT (BEAKER) (test code = 2801) [id number] 19:57:00 Test Item Value Reference Range Interpretation Comments HAPTOGLOBIN (BEAKER) (test code = 121 mg/dL 14-258 366) LACTATE DEHYDROGENASE (LDH)2017-11-04 18:40:00 Test Item Value Reference Range Interpretation Comments LACTATE DEHYDROGENASE (BEAKER) (test 216 U/L 125-220 code = 635) CBC W/PLT COUNT & AUTO [id number] 17:59:00 Test Item Value Reference Range Interpretation Comments WHITE BLOOD CELL COUNT (BEAKER) 7.3 K/ L 3.5-10.5 (test code = 775) RED BLOOD CELL COUNT (BEAKER) 3.09 M/ L 4.63-6.08 L (test code = 761) HEMOGLOBIN (BEAKER) (test code = 9.8 GM/DL 13.7-17.5 L 410) HEMATOCRIT (BEAKER) (test code = 30.7 % 40.1-51.0 L 411) MEAN CORPUSCULAR VOLUME (BEAKER) 99.4 fL 79.0-92.2 H (test code = 753) MEAN CORPUSCULAR HEMOGLOBIN 31.7 pg 25.7-32.2 (BEAKER) (test code = 751) MEAN CORPUSCULAR HEMOGLOBIN CONC 31.9 GM/DL 32.3-36.5 L (BEAKER) (test code = 752) RED CELL DISTRIBUTION WIDTH 20.5 % 11.6-14.4 H (BEAKER) (test code = 412) PLATELET COUNT (BEAKER) (test 132 K/CU MM 150-450 L code = 756) MEAN PLATELET VOLUME (BEAKER) 10.8 fL 9.4-12.4 (test code = 754) NUCLEATED RED BLOOD CELLS 0 /100 WBC 0-0 (BEAKER) (test code = 413) NEUTROPHILS RELATIVE PERCENT 60 % (BEAKER) (test code = 429) LYMPHOCYTES RELATIVE PERCENT 27 % (BEAKER) (test code = 430) MONOCYTES RELATIVE PERCENT 11 % (BEAKER) (test code = 431) EOSINOPHILS RELATIVE PERCENT 1 % (BEAKER) (test code = 432) BASOPHILS RELATIVE PERCENT 0 % (BEAKER) (test code = 437) NEUTROPHILS ABSOLUTE COUNT 4.34 K/ L 1.78-5.38 (BEAKER) (test code = 670) LYMPHOCYTES ABSOLUTE COUNT 1.95 K/ L 1.32-3.57 (BEAKER) (test code = 414) MONOCYTES ABSOLUTE COUNT (BEAKER) 0.81 K/ L 0.30-0.82 (test code = 415) EOSINOPHILS ABSOLUTE COUNT 0.09 K/ L 0.04-0.54 (BEAKER) (test code = 416) BASOPHILS ABSOLUTE COUNT (BEAKER) 0.02 K/ L 0.01-0.08 (test code = 417) IMMATURE GRANULOCYTES-RELATIVE 1 % 0-1 PERCENT (BEAKER) (test code = 2801) BASIC METABOLIC [id number] 05:18:00 Test Item Value Reference Range Interpretation Comments SODIUM (BEAKER) 134 meq/L 136-145 L (test code = 381) POTASSIUM (BEAKER) 3.7 meq/L 3.5-5.1 (test code = 379) CHLORIDE (BEAKER) 104 meq/L 98-107 (test code = 382) CO2 (BEAKER) (test 25 meq/L 22-29 code = 355) BLOOD UREA NITROGEN 14 mg/dL 7-21 (BEAKER) (test code = 354) CREATININE (BEAKER) 0.85 mg/dL 0.57-1.25 (test code = 358) GLUCOSE RANDOM 104 mg/dL 70-105 (BEAKER) (test code = 652) CALCIUM (BEAKER) 7.7 mg/dL 8.4-10.2 L (test code = 697) EGFR (BEAKER) (test 90 mL/min/1.73 ESTIMA LORRAINE GFR IS code = 1092) sq m NOT ACCURATE CREATININE CLEARANCE IN PREDICTING GLOMERULAR FILTRATION RATE . ESTIMATED GFR I S NOT APPLICABLE FOR DIALYSIS PATIEN TS. [id number] 05:13:00 Test Item Value Reference Range Interpretation Comments MAGNESIUM (BEAKER) (test code = 1.9 mg/dL 1.6-2.6 627) CBC W/PLT COUNT & AUTO [id number] 04:53:00 Test Item Value Reference Range Interpretation Comments WHITE BLOOD CELL COUNT (BEAKER) 6.1 K/ L 3.5-10.5 (test code = 775) RED BLOOD CELL COUNT (BEAKER) 1.92 M/ L 4.63-6.08 L (test code = 761) HEMOGLOBIN (BEAKER) (test code = 6.2 GM/DL 13.7-17.5 L 410) HEMATOCRIT (BEAKER) (test code = 19.5 % 40.1-51.0 L 411) MEAN CORPUSCULAR VOLUME (BEAKER) 101.6 fL 79.0-92.2 H (test code = 753) MEAN CORPUSCULAR HEMOGLOBIN 32.3 pg 25.7-32.2 H (BEAKER) (test code = 751) MEAN CORPUSCULAR HEMOGLOBIN CONC 31.8 GM/DL 32.3-36.5 L (BEAKER) (test code = 752) RED CELL DISTRIBUTION WIDTH 21.4 % 11.6-14.4 H (BEAKER) (test code = 412) PLATELET COUNT (BEAKER) (test 125 K/CU MM 150-450 L code = 756) MEAN PLATELET VOLUME (BEAKER) 11.5 fL 9.4-12.4 (test code = 754) NUCLEATED RED BLOOD CELLS 0 /100 WBC 0-0 (BEAKER) (test code = 413) NEUTROPHILS RELATIVE PERCENT 59 % (BEAKER) (test code = 429) LYMPHOCYTES RELATIVE PERCENT 26 % (BEAKER) (test code = 430) MONOCYTES RELATIVE PERCENT 12 % (BEAKER) (test code = 431) EOSINOPHILS RELATIVE PERCENT 2 % (BEAKER) (test code = 432) BASOPHILS RELATIVE PERCENT 0 % (BEAKER) (test code = 437) NEUTROPHILS ABSOLUTE COUNT 3.59 K/ L 1.78-5.38 (BEAKER) (test code = 670) LYMPHOCYTES ABSOLUTE COUNT 1.57 K/ L 1.32-3.57 (BEAKER) (test code = 414) MONOCYTES ABSOLUTE COUNT (BEAKER) 0.72 K/ L 0.30-0.82 (test code = 415) EOSINOPHILS ABSOLUTE COUNT 0.12 K/ L 0.04-0.54 (BEAKER) (test code = 416) BASOPHILS ABSOLUTE COUNT (BEAKER) 0.02 K/ L 0.01-0.08 (test code = 417) IMMATURE GRANULOCYTES-RELATIVE 1 % 0-1 PERCENT (BEAKER) (test code = 2801) HEMOGLOBIN AND [id number] 15:59:00 Test Item Value Reference Range Interpretation Comments HEMOGLOBIN (BEAKER) (test code = 7.4 GM/DL 13.7-17.5 L 410) HEMATOCRIT (BEAKER) (test code = 23.3 % 40.1-51.0 L 411) CBC W/PLT COUNT & AUTO [id number] 05:34:00 Test Item Value Reference Range Interpretation Comments WHITE BLOOD CELL COUNT (BEAKER) 5.5 K/ L 3.5-10.5 (test code = 775) RED BLOOD CELL COUNT (BEAKER) 1.77 M/ L 4.63-6.08 L (test code = 761) HEMOGLOBIN (BEAKER) (test code = 6.0 GM/DL 13.7-17.5 LL 410) HEMATOCRIT (BEAKER) (test code = 18.9 % 40.1-51.0 L 411) MEAN CORPUSCULAR VOLUME (BEAKER) 106.8 fL 79.0-92.2 H (test code = 753) MEAN CORPUSCULAR HEMOGLOBIN 33.9 pg 25.7-32.2 H (BEAKER) (test code = 751) MEAN CORPUSCULAR HEMOGLOBIN CONC 31.7 GM/DL 32.3-36.5 L (BEAKER) (test code = 752) RED CELL DISTRIBUTION WIDTH 17.4 % 11.6-14.4 H (BEAKER) (test code = 412) PLATELET COUNT (BEAKER) (test 116 K/CU MM 150-450 L code = 756) MEAN PLATELET VOLUME (BEAKER) 11.4 fL 9.4-12.4 (test code = 754) NUCLEATED RED BLOOD CELLS 0 /100 WBC 0-0 (BEAKER) (test code = 413) NEUTROPHILS RELATIVE PERCENT 55 % (BEAKER) (test code = 429) LYMPHOCYTES RELATIVE PERCENT 29 % (BEAKER) (test code = 430) MONOCYTES RELATIVE PERCENT 14 % (BEAKER) (test code = 431) EOSINOPHILS RELATIVE PERCENT 2 % (BEAKER) (test code = 432) BASOPHILS RELATIVE PERCENT 0 % (BEAKER) (test code = 437) NEUTROPHILS ABSOLUTE COUNT 2.98 K/ L 1.78-5.38 (BEAKER) (test code = 670) LYMPHOCYTES ABSOLUTE COUNT 1.57 K/ L 1.32-3.57 (BEAKER) (test code = 414) MONOCYTES ABSOLUTE COUNT (BEAKER) 0.74 K/ L 0.30-0.82 (test code = 415) EOSINOPHILS ABSOLUTE COUNT 0.13 K/ L 0.04-0.54 (BEAKER) (test code = 416) BASOPHILS ABSOLUTE COUNT (BEAKER) 0.02 K/ L 0.01-0.08 (test code = 417) IMMATURE GRANULOCYTES-RELATIVE 1 % 0-1 PERCENT (BEAKER) (test code = 2801) [id number] 05:34:00 Test Item Value Reference Range Interpretation Comments MAGNESIUM (BEAKER) (test code = 1.6 mg/dL 1.6-2.6 627) Ok to add onBASIC METABOLIC [id number] 05:34:00 Test Item Value Reference Range Interpretation Comments SODIUM (BEAKER) 137 meq/L 136-145 (test code = 381) POTASSIUM (BEAKER) 3.9 meq/L 3.5-5.1 (test code = 379) CHLORIDE (BEAKER) 106 meq/L 98-107 (test code = 382) CO2 (BEAKER) (test 26 meq/L 22-29 code = 355) BLOOD UREA NITROGEN 11 mg/dL 7-21 (BEAKER) (test code = 354) CREATININE (BEAKER) 0.85 mg/dL 0.57-1.25 (test code = 358) GLUCOSE RANDOM 101 mg/dL 70-105 (BEAKER) (test code = 652) CALCIUM (BEAKER) 8.0 mg/dL 8.4-10.2 L (test code = 697) EGFR (BEAKER) (test 90 mL/min/1.73 ESTIMA LORRAINE GFR IS code = 1092) sq m NOT ACCURATE CREATININE CLEARANCE IN PREDICTING GLOMERULAR FILTRATION RATE . ESTIMATED GFR I S NOT APPLICABLE FOR DIALYSIS PATIEN TS. Ok to add [id number] 04:53:00 Test Item Value Reference Range Interpretation Comments PROTIME (BEAKER) (test code = 15.5 seconds 11.7-14.7 H 759) INR (BEAKER) (test code = 370) 1.2 <=5.9 PARTIAL THROMBOPLASTIN TIME 87.8 seconds 22.5-36.0 H (BEAKER) (test code = 760) RECOMMENDED COUMADIN/WARFARIN INR THERAPY RANGESSTANDARD DOSE: 2.0 - 3.0 Includes: PROPHYLAXIS forvenous thrombosis, systemic embolization; TREATMENT for venous thrombosis and/or pulmonary embolus.HIGH RISK: Target INR is 2.5-3.5 for patients with mechanical heart valves.[id number] 04:53:00 Test Item Value Reference Range Interpretation Comments PARTIAL THROMBOPLASTIN TIME 87.8 seconds 22.5-36.0 H (BEAKER) (test code = 760) [id number] 21:49:00 Test Item Value Reference Range Interpretation Comments PARTIAL THROMBOPLASTIN TIME 98.3 seconds 22.5-36.0 H (BEAKER) (test code = 760) [id number] 12:28:00 Test Item Value Reference Range Interpretation Comments PARTIAL THROMBOPLASTIN TIME 61.5 seconds 22.5-36.0 H (BEAKER) (test code = 760) BASIC METABOLIC [id number] 07:02:00 Test Item Value Reference Range Interpretation Comments SODIUM (BEAKER) 135 meq/L 136-145 L (test code = 381) POTASSIUM (BEAKER) 3.4 meq/L 3.5-5.1 L (test code = 379) CHLORIDE (BEAKER) 101 meq/L 98-107 (test code = 382) CO2 (BEAKER) (test 26 meq/L 22-29 code = 355) BLOOD UREA NITROGEN 9 mg/dL 7-21 (BEAKER) (test code = 354) CREATININE (BEAKER) 0.76 mg/dL 0.57-1.25 (test code = 358) GLUCOSE RANDOM 81 mg/dL 70-105 (BEAKER) (test code = 652) CALCIUM (BEAKER) 8.3 mg/dL 8.4-10.2 L (test code = 697) EGFR (BEAKER) (test 103 mL/min/1.73 ESTIM ATED GFR IS code = 1092) sq m NOT ACCURATE CREATININE CLEARANCE IN PREDICTING GLOMERULAR FILTRATION RATE . ESTIMATED GFR I S NOT APPLICABLE FOR DIALYSIS PATIEN TS. [id number] 05:17:00 Test Item Value Reference Range Interpretation Comments PROTIME (BEAKER) (test code = 14.5 seconds 11.7-14.7 759) INR (BEAKER) (test code = 370) 1.1 <=5.9 PARTIAL THROMBOPLASTIN TIME 66.6 seconds 22.5-36.0 H (BEAKER) (test code = 760) RECOMMENDED COUMADIN/WARFARIN INR THERAPY RANGESSTANDARD DOSE: 2.0 - 3.0 Includes: PROPHYLAXIS forvenous thrombosis, systemic embolization; TREATMENT for venous thrombosis and/or pulmonary embolus.HIGH RISK: Target INR is 2.5-3.5 for patients with mechanical heart valves.CBC W/PLT COUNT & AUTO DIFFERENTIAL 2017-11-02 05:16:00 Test Item Value Reference Range Interpretation Comments WHITE BLOOD CELL COUNT (BEAKER) 7.8 K/ L 3.5-10.5 (test code = 775) RED BLOOD CELL COUNT (BEAKER) 2.26 M/ L 4.63-6.08 L (test code = 761) HEMOGLOBIN (BEAKER) (test code = 7.7 GM/DL 13.7-17.5 L 410) HEMATOCRIT (BEAKER) (test code = 23.8 % 40.1-51.0 L 411) MEAN CORPUSCULAR VOLUME (BEAKER) 105.3 fL 79.0-92.2 H (test code = 753) MEAN CORPUSCULAR HEMOGLOBIN 34.1 pg 25.7-32.2 H (BEAKER) (test code = 751) MEAN CORPUSCULAR HEMOGLOBIN CONC 32.4 GM/DL 32.3-36.5 (BEAKER) (test code = 752) RED CELL DISTRIBUTION WIDTH 17.2 % 11.6-14.4 H (BEAKER) (test code = 412) PLATELET COUNT (BEAKER) (test 109 K/CU MM 150-450 L code = 756) MEAN PLATELET VOLUME (BEAKER) 12.4 fL 9.4-12.4 (test code = 754) NUCLEATED RED BLOOD CELLS 0 /100 WBC 0-0 (BEAKER) (test code = 413) NEUTROPHILS RELATIVE PERCENT 59 % (BEAKER) (test code = 429) LYMPHOCYTES RELATIVE PERCENT 28 % (BEAKER) (test code = 430) MONOCYTES RELATIVE PERCENT 12 % (BEAKER) (test code = 431) EOSINOPHILS RELATIVE PERCENT 1 % (BEAKER) (test code = 432) BASOPHILS RELATIVE PERCENT 0 % (BEAKER) (test code = 437) NEUTROPHILS ABSOLUTE COUNT 4.58 K/ L 1.78-5.38 (BEAKER) (test code = 670) LYMPHOCYTES ABSOLUTE COUNT 2.23 K/ L 1.32-3.57 (BEAKER) (test code = 414) MONOCYTES ABSOLUTE COUNT (BEAKER) 0.91 K/ L 0.30-0.82 H (test code = 415) EOSINOPHILS ABSOLUTE COUNT 0.07 K/ L 0.04-0.54 (BEAKER) (test code = 416) BASOPHILS ABSOLUTE COUNT (BEAKER) 0.01 K/ L 0.01-0.08 (test code = 417) IMMATURE GRANULOCYTES-RELATIVE 1 % 0-1 PERCENT (BEAKER) (test code = 2801) BASIC METABOLIC [id number] 05:45:00 Test Item Value Reference Range Interpretation Comments SODIUM (BEAKER) 137 meq/L 136-145 (test code = 381) POTASSIUM (BEAKER) 3.8 meq/L 3.5-5.1 (test code = 379) CHLORIDE (BEAKER) 104 meq/L 98-107 (test code = 382) CO2 (BEAKER) (test 29 meq/L 22-29 code = 355) BLOOD UREA NITROGEN 9 mg/dL 7-21 (BEAKER) (test code = 354) CREATININE (BEAKER) 0.78 mg/dL 0.57-1.25 (test code = 358) GLUCOSE RANDOM 114 mg/dL 70-105 H (BEAKER) (test code = 652) CALCIUM (BEAKER) 8.3 mg/dL 8.4-10.2 L (test code = 697) EGFR (BEAKER) (test 100 mL/min/1.73 ESTIM ATED GFR IS code = 1092) sq m NOT ACCURATE CREATININE CLEARANCE IN PREDICTING GLOMERULAR FILTRATION RATE . ESTIMATED GFR I S NOT APPLICABLE FOR DIALYSIS PATIEN TS. [id number] 05:27:00 Test Item Value Reference Range Interpretation Comments PROTIME (BEAKER) (test code = 14.9 seconds 11.7-14.7 H 759) INR (BEAKER) (test code = 370) 1.2 <=5.9 PARTIAL THROMBOPLASTIN TIME 73.6 seconds 22.5-36.0 H (BEAKER) (test code = 760) RECOMMENDED COUMADIN/WARFARIN INR THERAPY RANGESSTANDARD DOSE: 2.0 - 3.0 Includes: PROPHYLAXIS forvenous thrombosis, systemic embolization; TREATMENT for venous thrombosis and/or pulmonary embolus.HIGH RISK: Target INR is 2.5-3.5 for patients with mechanical heart valves.CBC W/PLT COUNT & AUTO DIFFERENTIAL 2017-11-01 05:09:00 Test Item Value Reference Range Interpretation Comments WHITE BLOOD CELL COUNT (BEAKER) 7.7 K/ L 3.5-10.5 (test code = 775) RED BLOOD CELL COUNT (BEAKER) 2.34 M/ L 4.63-6.08 L (test code = 761) HEMOGLOBIN (BEAKER) (test code = 8.0 GM/DL 13.7-17.5 L 410) HEMATOCRIT (BEAKER) (test code = 24.3 % 40.1-51.0 L 411) MEAN CORPUSCULAR VOLUME (BEAKER) 103.8 fL 79.0-92.2 H (test code = 753) MEAN CORPUSCULAR HEMOGLOBIN 34.2 pg 25.7-32.2 H (BEAKER) (test code = 751) MEAN CORPUSCULAR HEMOGLOBIN CONC 32.9 GM/DL 32.3-36.5 (BEAKER) (test code = 752) RED CELL DISTRIBUTION WIDTH 17.5 % 11.6-14.4 H (BEAKER) (test code = 412) PLATELET COUNT (BEAKER) (test code 86 K/CU MM 150-450 L = 756) MEAN PLATELET VOLUME (BEAKER) 12.1 fL 9.4-12.4 (test code = 754) NUCLEATED RED BLOOD CELLS (BEAKER) 0 /100 WBC 0-0 (test code = 413) NEUTROPHILS RELATIVE PERCENT 54 % (BEAKER) (test code = 429) LYMPHOCYTES RELATIVE PERCENT 32 % (BEAKER) (test code = 430) MONOCYTES RELATIVE PERCENT 12 % (BEAKER) (test code = 431) EOSINOPHILS RELATIVE PERCENT 1 % (BEAKER) (test code = 432) BASOPHILS RELATIVE PERCENT 0 % (BEAKER) (test code = 437) NEUTROPHILS ABSOLUTE COUNT 4.22 K/ L 1.78-5.38 (BEAKER) (test code = 670) LYMPHOCYTES ABSOLUTE COUNT 2.45 K/ L 1.32-3.57 (BEAKER) (test code = 414) MONOCYTES ABSOLUTE COUNT (BEAKER) 0.91 K/ L 0.30-0.82 H (test code = 415) EOSINOPHILS ABSOLUTE COUNT 0.11 K/ L 0.04-0.54 (BEAKER) (test code = 416) BASOPHILS ABSOLUTE COUNT (BEAKER) 0.02 K/ L 0.01-0.08 (test code = 417) IMMATURE GRANULOCYTES-RELATIVE 0 % 0-1 PERCENT (BEAKER) (test code = 2801) [id number] 18:28:00 Test Item Value Reference Range Interpretation Comments PARTIAL THROMBOPLASTIN TIME 74.1 seconds 22.5-36.0 H (BEAKER) (test code = 760) U/S, [id number] 13:20:00Reason for exam:->Please image aorta and bilateral iliacsFINAL REPORT Aorta ultrasound, 10/31/2017. Clinical History: Peripheral vascular disease. Discussion: Grayscale sonographic evaluation of the abdominal aorta is performed. In addition, color Doppler and spectral wave form analysis evaluations are performed. Evaluation is extremely limited due to overlying bowel gas obscuring majority of the iliac vessels. Proximally, the abdominal aorta measures 2.4 cm (anterior-posterior by transverse dimensions). In its midportion, at the level of the renal arteries, it measures 1.3 cm. Distally, above the iliac bifurcations, it is not visible. The right common iliac artery measures 0.5 mm in transverse dimension. The left common iliac artery measures 0.8 mm in transverse dimension. There is no visible aneurysm. The internal and external iliac arteries are not visible. Common iliac veins are patent bilaterally. Impression: Limited exam. No gross evidence of aneurysm where visualized. Significant stenosis cannot be excluded. Consider CTA.Signed: Sebastián Mueller MDReport Verified Date/Time: 10/31/2017 13:20:31 Reading Location: [facility] [id number] Ultrasound Reading Room [id number] 11:28:00 Test Item Value Reference Range Interpretation Comments PARTIAL THROMBOPLASTIN TIME 77.5 seconds 22.5-36.0 H (BEAKER) (test code = 760) [id number] 05:11:00 Test Item Value Reference Range Interpretation Comments PROTIME (BEAKER) (test code = 16.5 seconds 11.7-14.7 H 759) INR (BEAKER) (test code = 370) 1.3 <=5.9 PARTIAL THROMBOPLASTIN TIME 69.3 seconds 22.5-36.0 H (BEAKER) (test code = 760) RECOMMENDED COUMADIN/WARFARIN INR THERAPY RANGESSTANDARD DOSE: 2.0 - 3.0 Includes: PROPHYLAXIS forvenous thrombosis, systemic embolization; TREATMENT for venous thrombosis and/or pulmonary embolus.HIGH RISK: Target INR is 2.5-3.5 for patients with mechanical heart valves.LIPID [id number] 05:07:00 Test Item Value Reference Range Interpretation Comments TRIGLYCERIDES (BEAKER) (test code = 66 mg/dL 540) CHOLESTEROL (BEAKER) (test code = 86 mg/dL 631) HDL CHOLESTEROL (BEAKER) (test code 19 mg/dL = 976) LDL CHOLESTEROL CALCULATED (BEAKER) 54 mg/dL (test code = 633) Triglyceride Reference Range: Low Risk <150 Borderline 150-199 High Risk 200-499 Very High Risk >=500Cholesterol Reference Range: Low Risk <200 Borderline 200-239 High Risk >240HDL Cholesterol Reference Range: Low Risk >=60 High Risk <40LDL Cholesterol Reference Range: Optimal <100 Near Optimal 100-129 Borderline 130-159 High 160-189 Very High >=190BASIC METABOLIC [id number] 05:07:00 Test Item Value Reference Range Interpretation Comments SODIUM (BEAKER) 136 meq/L 136-145 (test code = 381) POTASSIUM (BEAKER) 3.8 meq/L 3.5-5.1 (test code = 379) CHLORIDE (BEAKER) 103 meq/L 98-107 (test code = 382) CO2 (BEAKER) (test 28 meq/L 22-29 code = 355) BLOOD UREA NITROGEN 7 mg/dL 7-21 (BEAKER) (test code = 354) CREATININE (BEAKER) 0.78 mg/dL 0.57-1.25 (test code = 358) GLUCOSE RANDOM 111 mg/dL 70-105 H (BEAKER) (test code = 652) CALCIUM (BEAKER) 8.1 mg/dL 8.4-10.2 L (test code = 697) EGFR (BEAKER) (test 100 mL/min/1.73 ESTIM ATED GFR IS code = 1092) sq m NOT ACCURATE CREATININE CLEARANCE IN PREDICTING GLOMERULAR FILTRATION RATE . ESTIMATED GFR I S NOT APPLICABLE FOR DIALYSIS PATIEN TS. CBC W/PLT COUNT & AUTO [id number] 04:55:00 Test Item Value Reference Range Interpretation Comments WHITE BLOOD CELL COUNT (BEAKER) 7.3 K/ L 3.5-10.5 (test code = 775) RED BLOOD CELL COUNT (BEAKER) 2.41 M/ L 4.63-6.08 L (test code = 761) HEMOGLOBIN (BEAKER) (test code = 8.1 GM/DL 13.7-17.5 L 410) HEMATOCRIT (BEAKER) (test code = 25.1 % 40.1-51.0 L 411) MEAN CORPUSCULAR VOLUME (BEAKER) 104.1 fL 79.0-92.2 H (test code = 753) MEAN CORPUSCULAR HEMOGLOBIN 33.6 pg 25.7-32.2 H (BEAKER) (test code = 751) MEAN CORPUSCULAR HEMOGLOBIN CONC 32.3 GM/DL 32.3-36.5 (BEAKER) (test code = 752) RED CELL DISTRIBUTION WIDTH 18.4 % 11.6-14.4 H (BEAKER) (test code = 412) PLATELET COUNT (BEAKER) (test code 70 K/CU MM 150-450 L = 756) MEAN PLATELET VOLUME (BEAKER) 12.2 fL 9.4-12.4 (test code = 754) NUCLEATED RED BLOOD CELLS (BEAKER) 0 /100 WBC 0-0 (test code = 413) NEUTROPHILS RELATIVE PERCENT 57 % (BEAKER) (test code = 429) LYMPHOCYTES RELATIVE PERCENT 28 % (BEAKER) (test code = 430) MONOCYTES RELATIVE PERCENT 14 % (BEAKER) (test code = 431) EOSINOPHILS RELATIVE PERCENT 1 % (BEAKER) (test code = 432) BASOPHILS RELATIVE PERCENT 0 % (BEAKER) (test code = 437) NEUTROPHILS ABSOLUTE COUNT 4.14 K/ L 1.78-5.38 (BEAKER) (test code = 670) LYMPHOCYTES ABSOLUTE COUNT 2.02 K/ L 1.32-3.57 (BEAKER) (test code = 414) MONOCYTES ABSOLUTE COUNT (BEAKER) 0.99 K/ L 0.30-0.82 H (test code = 415) EOSINOPHILS ABSOLUTE COUNT 0.08 K/ L 0.04-0.54 (BEAKER) (test code = 416) BASOPHILS ABSOLUTE COUNT (BEAKER) 0.02 K/ L 0.01-0.08 (test code = 417) IMMATURE GRANULOCYTES-RELATIVE 1 % 0-1 PERCENT (BEAKER) (test code = 2801) [id number] 22:02:00 Test Item Value Reference Range Interpretation Comments PARTIAL THROMBOPLASTIN TIME 53.6 seconds 22.5-36.0 H (BEAKER) (test code = 760) [id number] 13:58:00 Test Item Value Reference Range Interpretation Comments PARTIAL THROMBOPLASTIN TIME 52.0 seconds 22.5-36.0 H (BEAKER) (test code = 760) [id number] 12:23:00 Test Item Value Reference Range Interpretation Comments PARTIAL THROMBOPLASTIN TIME > seconds 22.5-36.0 HH (BEAKER) (test code = 760) HEMOGLOBIN AND [id number] 11:25:00 Test Item Value Reference Range Interpretation Comments HEMOGLOBIN (BEAKER) (test code = 8.7 GM/DL 13.7-17.5 L 410) HEMATOCRIT (BEAKER) (test code = 26.4 % 40.1-51.0 L 411) POCT-GLUCOSE [id number] 06:57:00 Test Item Value Reference Range Interpretation Comments POC-GLUCOSE METER 131 mg/dL 70-110 H TESTED AT [facility] 6720 (BEAKER) (test code = JIMBO MCC[place]OUGH 1538) [id number] 05:45:00 Test Item Value Reference Range Interpretation Comments PARTIAL THROMBOPLASTIN TIME 75.3 seconds 22.5-36.0 H (BEAKER) (test code = 760) CREATINE KINASE (CK), TOTAL AND [id number] 03:45:00 Test Item Value Reference Range Interpretation Comments CREATINE KINASE TOTAL (BEAKER) 50 U/L 29-200 (test code = 380) CREATINE KINASE-MB (BEAKER) (test 2.1 ng/mL 0.0-6.6 code = 750) CREATINE KINASE-MB INDEX (BEAKER) 4.2 % (test code = 395) CK-MB Reference Range:<6.7 Normal6.7-10.0 Borderline>10.0 AbnormalTROPONIN [id number] 03:45:00 Test Item Value Reference Range Interpretation Comments TROPONIN I (BEAKER) (test code = 397) < ng/mL 0.00-0.03 Troponin I (TnI) levels must be interpreted in the context of the presenting symptoms and the clinical findings. Elevated TnI levels indicate myocardial damage, but are not specific for ischemic heart disease. Elevated TnI levels are seen in patients with other cardiac conditions (including myocarditis and congestive heart failure), and slight TnI elevations occur in patients with other conditions, including sepsis, renal failure, acidosis, acute neurological disease, and persistent tachyarrhythmia.[id number] 03:39:00 Test Item Value Reference Range Interpretation Comments MAGNESIUM (BEAKER) (test code = 2.3 mg/dL 1.6-2.6 627) BASIC METABOLIC [id number] 03:39:00 Test Item Value Reference Range Interpretation Comments SODIUM (BEAKER) 138 meq/L 136-145 (test code = 381) POTASSIUM (BEAKER) 4.2 meq/L 3.5-5.1 (test code = 379) CHLORIDE (BEAKER) 110 meq/L 98-107 H (test code = 382) CO2 (BEAKER) (test 23 meq/L 22-29 code = 355) BLOOD UREA NITROGEN 8 mg/dL 7-21 (BEAKER) (test code = 354) CREATININE (BEAKER) 0.76 mg/dL 0.57-1.25 (test code = 358) GLUCOSE RANDOM 137 mg/dL 70-105 H (BEAKER) (test code = 652) CALCIUM (BEAKER) 8.0 mg/dL 8.4-10.2 L (test code = 697) EGFR (BEAKER) (test 103 mL/min/1.73 ESTIM ATED GFR IS code = 1092) sq m NOT ACCURATE CREATININE CLEARANCE IN PREDICTING GLOMERULAR FILTRATION RATE . ESTIMATED GFR I S NOT APPLICABLE FOR DIALYSIS PATIEN TS. [id number] 03:38:00 Test Item Value Reference Range Interpretation Comments PARTIAL THROMBOPLASTIN TIME 118.9 seconds 22.5-36.0 H (BEAKER) (test code = 760) CBC W/PLT COUNT & AUTO [id number] 03:30:00 Test Item Value Reference Range Interpretation Comments WHITE BLOOD CELL COUNT (BEAKER) 7.8 K/ L 3.5-10.5 (test code = 775) RED BLOOD CELL COUNT (BEAKER) 2.33 M/ L 4.63-6.08 L (test code = 761) HEMOGLOBIN (BEAKER) (test code = 7.9 GM/DL 13.7-17.5 L 410) HEMATOCRIT (BEAKER) (test code = 24.1 % 40.1-51.0 L 411) MEAN CORPUSCULAR VOLUME (BEAKER) 103.4 fL 79.0-92.2 H (test code = 753) MEAN CORPUSCULAR HEMOGLOBIN 33.9 pg 25.7-32.2 H (BEAKER) (test code = 751) MEAN CORPUSCULAR HEMOGLOBIN CONC 32.8 GM/DL 32.3-36.5 (BEAKER) (test code = 752) RED CELL DISTRIBUTION WIDTH 17.5 % 11.6-14.4 H (BEAKER) (test code = 412) PLATELET COUNT (BEAKER) (test code 77 K/CU MM 150-450 L = 756) MEAN PLATELET VOLUME (BEAKER) 11.5 fL 9.4-12.4 (test code = 754) NUCLEATED RED BLOOD CELLS (BEAKER) 0 /100 WBC 0-0 (test code = 413) NEUTROPHILS RELATIVE PERCENT 68 % (BEAKER) (test code = 429) LYMPHOCYTES RELATIVE PERCENT 20 % (BEAKER) (test code = 430) MONOCYTES RELATIVE PERCENT 10 % (BEAKER) (test code = 431) EOSINOPHILS RELATIVE PERCENT 1 % (BEAKER) (test code = 432) BASOPHILS RELATIVE PERCENT 0 % (BEAKER) (test code = 437) NEUTROPHILS ABSOLUTE COUNT 5.31 K/ L 1.78-5.38 (BEAKER) (test code = 670) LYMPHOCYTES ABSOLUTE COUNT 1.57 K/ L 1.32-3.57 (BEAKER) (test code = 414) MONOCYTES ABSOLUTE COUNT (BEAKER) 0.77 K/ L 0.30-0.82 (test code = 415) EOSINOPHILS ABSOLUTE COUNT 0.05 K/ L 0.04-0.54 (BEAKER) (test code = 416) BASOPHILS ABSOLUTE COUNT (BEAKER) 0.03 K/ L 0.01-0.08 (test code = 417) IMMATURE GRANULOCYTES-RELATIVE 1 % 0-1 PERCENT (BEAKER) (test code = 2801) HEMOGLOBIN AND [id number] 01:17:00 Test Item Value Reference Range Interpretation Comments HEMOGLOBIN (BEAKER) (test code = 7.9 GM/DL 13.7-17.5 L 410) HEMATOCRIT (BEAKER) (test code = 23.5 % 40.1-51.0 L 411) POCT-GLUCOSE [id number] 00:04:00 Test Item Value Reference Range Interpretation Comments POC-GLUCOSE METER 145 mg/dL 70-110 H TESTED AT [facility] 6720 (BEAKER) (test code = HANKJOSE [place] 1538) [address] [id number] 23:34:00 Test Item Value Reference Range Interpretation Comments MAGNESIUM (BEAKER) (test code = 1.8 mg/dL 1.6-2.6 627) HEPATIC FUNCTION [id number] 23:34:00 Test Item Value Reference Range Interpretation Comments TOTAL PROTEIN (BEAKER) (test code = 5.5 gm/dL 6.0-8.3 L 770) ALBUMIN (BEAKER) (test code = 1145) 2.6 g/dL 3.5-5.0 L BILIRUBIN TOTAL (BEAKER) (test code 2.0 mg/dL 0.2-1.2 H = 377) BILIRUBIN DIRECT (BEAKER) (test 1.1 mg/dL 0.1-0.5 H code = 706) ALKALINE PHOSPHATASE (BEAKER) (test 40 U/L 40-150 code = 346) AST (SGOT) (BEAKER) (test code = 37 U/L 5-34 H 353) ALT (SGPT) (BEAKER) (test code = 17 U/L 6-55 347) CREATINE KINASE (CK), TOTAL AND [id number] 21:50:00 Test Item Value Reference Range Interpretation Comments CREATINE KINASE TOTAL (BEAKER) 31 U/L 29-200 (test code = 380) CREATINE KINASE-MB (BEAKER) (test 1.1 ng/mL 0.0-6.6 code = 750) CREATINE KINASE-MB INDEX (BEAKER) 3.5 % (test code = 395) CK-MB Reference Range:<6.7 Normal6.7-10.0 Borderline>10.0 AbnormalTROPONIN [id number] 21:50:00 Test Item Value Reference Range Interpretation Comments TROPONIN I (BEAKER) (test code = 397) < ng/mL 0.00-0.03 Troponin I (TnI) levels must be interpreted in the context of the presenting symptoms and the clinical findings. Elevated TnI levels indicate myocardial damage, but are not specific for ischemic heart disease. Elevated TnI levels are seen in patients with other cardiac conditions (including myocarditis and congestive heart failure), and slight TnI elevations occur in patients with other conditions, including sepsis, renal failure, acidosis, acute neurological disease, and persistent tachyarrhythmia.[id number] 20:51:00 Test Item Value Reference Range Interpretation Comments MAGNESIUM (BEAKER) (test code = 1.1 mg/dL 1.6-2.6 L 627) BASIC METABOLIC [id number] 20:51:00 Test Item Value Reference Range Interpretation Comments SODIUM (BEAKER) 139 meq/L 136-145 (test code = 381) POTASSIUM (BEAKER) 3.7 meq/L 3.5-5.1 (test code = 379) CHLORIDE (BEAKER) 111 meq/L 98-107 H (test code = 382) CO2 (BEAKER) (test 23 meq/L 22-29 code = 355) BLOOD UREA NITROGEN 7 mg/dL 7-21 (BEAKER) (test code = 354) CREATININE (BEAKER) 0.86 mg/dL 0.57-1.25 (test code = 358) GLUCOSE RANDOM 112 mg/dL 70-105 H (BEAKER) (test code = 652) CALCIUM (BEAKER) 8.1 mg/dL 8.4-10.2 L (test code = 697) EGFR (BEAKER) (test 89 mL/min/1.73 ESTIMA LORRAINE GFR IS code = 1092) sq m NOT ACCURATE CREATININE CLEARANCE IN PREDICTING GLOMERULAR FILTRATION RATE . ESTIMATED GFR I S NOT APPLICABLE FOR DIALYSIS PATIEN TS. LACTIC ACID, ARTERIAL, WHOLE [id number] 20:45:00 Test Item Value Reference Range Interpretation Comments LACTATE BLOOD ARTERIAL (2) 1.6 mmol/L 0.5-2.2 (BEAKER) (test code = 2874) Effective 06/15/2015: Units/Reference Range ChangeNew: 0.5-2.2 mmol/L Previous: 5-20 mg/dLBLOOD GAS, [id number] 20:37:00 Test Item Value Reference Range Interpretation Comments PH ARTERIAL (BEAKER) (test code = 7.41 7.35-7.45 383) PCO2 ARTERIAL (BEAKER) (test code 38 mmHg 35-45 = 384) PO2 ARTERIAL (BEAKER) (test code 68 mmHg 80-90 L = 385) O2 SATURATION ARTERIAL (BEAKER) 94.6 % 96.0-97.0 L (test code = 386) HCO3 ARTERIAL (BEAKER) (test code 23 mmol/L 21-29 = 388) BASE EXCESS ARTERIAL (BEAKER) -1.3 mmol/L -2.0-3.0 (test code = 387) PATIENT TEMPERATURE (BEAKER) 36.1 C (test code = 1818) FIO2 (BEAKER) (test code = 1819) 21.0 % HGB/HCT (H&H) - STAT [id number] 20:37:00 Test Item Value Reference Range Interpretation Comments HEMOGLOBIN (BEAKER) (test code = 9.3 g/dL 13.0-16.8 L 410) HEMATOCRIT (BEAKER) (test code = 27.0 % 40.0-50.0 L 411) CALCIUM, [id number] 20:37:00 Test Item Value Reference Range Interpretation Comments CALCIUM IONIZED (BEAKER) (test 1.12 mmol/L 1.12-1.27 code = 698) PH, BLOOD (BEAKER) (test code = 7.41 1810) PROTHROMBIN [id number] 20:36:00 Test Item Value Reference Range Interpretation Comments PROTIME (BEAKER) (test code = 17.7 seconds 11.7-14.7 H 759) INR (BEAKER) (test code = 370) 1.5 <=5.9 RECOMMENDED COUMADIN/WARFARIN INR THERAPY RANGESSTANDARD DOSE: 2.0 - 3.0 Includes: PROPHYLAXIS forvenous thrombosis, systemic embolization; TREATMENT for venous thrombosis and/or pulmonary embolus.HIGH RISK: Target INR is 2.5-3.5 for patients with mechanical heart valves.[id number] 20:36:00 Test Item Value Reference Range Interpretation Comments PARTIAL THROMBOPLASTIN TIME 38.3 seconds 22.5-36.0 H (BEAKER) (test code = 760) [id number] 20:36:00 Test Item Value Reference Range Interpretation Comments FIBRINOGEN LEVEL (BEAKER) (test 152 mg/dl 225-434 L code = 658) GLUCOSE-STAT [id number] 20:36:00 Test Item Value Reference Range Interpretation Comments GLUCOSE RANDOM (BEAKER) (test code 104 mg/dL 70-110 = 652) POTASSIUM-STAT [id number] 20:36:00 Test Item Value Reference Range Interpretation Comments POTASSIUM (BEAKER) (test code = 3.5 meq/L 3.6-5.5 L 379) CBC W/PLT COUNT & AUTO [id number] 20:36:00 Test Item Value Reference Range Interpretation Comments WHITE BLOOD CELL COUNT (BEAKER) 6.8 K/ L 3.5-10.5 (test code = 775) RED BLOOD CELL COUNT (BEAKER) 2.42 M/ L 4.63-6.08 L (test code = 761) HEMOGLOBIN (BEAKER) (test code = 8.3 GM/DL 13.7-17.5 L 410) HEMATOCRIT (BEAKER) (test code = 24.7 % 40.1-51.0 L 411) MEAN CORPUSCULAR VOLUME (BEAKER) 102.1 fL 79.0-92.2 H (test code = 753) MEAN CORPUSCULAR HEMOGLOBIN 34.3 pg 25.7-32.2 H (BEAKER) (test code = 751) MEAN CORPUSCULAR HEMOGLOBIN CONC 33.6 GM/DL 32.3-36.5 (BEAKER) (test code = 752) RED CELL DISTRIBUTION WIDTH 16.3 % 11.6-14.4 H (BEAKER) (test code = 412) PLATELET COUNT (BEAKER) (test code 81 K/CU MM 150-450 L = 756) MEAN PLATELET VOLUME (BEAKER) 11.6 fL 9.4-12.4 (test code = 754) NUCLEATED RED BLOOD CELLS (BEAKER) 0 /100 WBC 0-0 (test code = 413) NEUTROPHILS RELATIVE PERCENT 60 % (BEAKER) (test code = 429) LYMPHOCYTES RELATIVE PERCENT 29 % (BEAKER) (test code = 430) MONOCYTES RELATIVE PERCENT 9 % (BEAKER) (test code = 431) EOSINOPHILS RELATIVE PERCENT 1 % (BEAKER) (test code = 432) BASOPHILS RELATIVE PERCENT 0 % (BEAKER) (test code = 437) NEUTROPHILS ABSOLUTE COUNT 4.06 K/ L 1.78-5.38 (BEAKER) (test code = 670) LYMPHOCYTES ABSOLUTE COUNT 1.98 K/ L 1.32-3.57 (BEAKER) (test code = 414) MONOCYTES ABSOLUTE COUNT (BEAKER) 0.63 K/ L 0.30-0.82 (test code = 415) EOSINOPHILS ABSOLUTE COUNT 0.06 K/ L 0.04-0.54 (BEAKER) (test code = 416) BASOPHILS ABSOLUTE COUNT (BEAKER) 0.02 K/ L 0.01-0.08 (test code = 417) IMMATURE GRANULOCYTES-RELATIVE 1 % 0-1 PERCENT (BEAKER) (test code = 2801) [id number] 18:34:00 Test Item Value Reference Range Interpretation Comments ACTIVATED CLOTTING TIME 230 sec TEST ED AT [place] [address] (BANNER) (test code = HANKJOSE Omer [place] [address]) [id number] 18:34:00 Test Item Value Reference Range Interpretation Comments ACTIVATED CLOTTING TIME 279 sec TEST ED AT [place] [address] ([place]NER) (test code = JIMBO Omer [place] [address]) [address] [id number] 18:34:00 Test Item Value Reference Range Interpretation Comments ACTIVATED CLOTTING TIME 197 sec TEST ED AT [place] [address] (BANNER) (test code = HANKOR Negra [place] [address]) [address] [id number] 18:34:00 Test Item Value Reference Range Interpretation Comments ACTIVATED CLOTTING TIME 241 sec TEST ED AT [place] [address] (BANNER) (test code = HANKOR Negra [place] [address]) [address] SODIUM NA-STAT [id number] 18:26:00 Test Item Value Reference Range Interpretation Comments SODIUM (BEAKER) (test code = 381) 138 meq/L 135-148 POTASSIUM-STAT [id number] 18:26:00 Test Item Value Reference Range Interpretation Comments POTASSIUM (BEAKER) (test code = 3.7 meq/L 3.6-5.5 379) CALCIUM, [id number] 18:26:00 Test Item Value Reference Range Interpretation Comments CALCIUM IONIZED (BEAKER) (test 1.16 mmol/L 1.12-1.27 code = 698) PH, BLOOD (BEAKER) (test code = 7.35 1810) BLOOD GAS, [id number] 18:26:00 Test Item Value Reference Range Interpretation Comments PH ARTERIAL (BEAKER) (test code = 7.35 7.35-7.45 383) PCO2 ARTERIAL (BEAKER) (test code 48 mmHg 35-45 H = 384) PO2 ARTERIAL (BEAKER) (test code 162 mmHg 80-90 H = 385) O2 SATURATION ARTERIAL (BEAKER) 99.0 % 96.0-97.0 H (test code = 386) HCO3 ARTERIAL (BEAKER) (test code 26 mmol/L 21-29 = 388) BASE EXCESS ARTERIAL (BEAKER) -0.4 mmol/L -2.0-3.0 (test code = 387) PATIENT TEMPERATURE (BEAKER) 37.0 C (test code = 1818) FIO2 (BEAKER) (test code = 1819) 50.0 % GLUCOSE-STAT [id number] 18:26:00 Test Item Value Reference Range Interpretation Comments GLUCOSE RANDOM (BEAKER) (test code 113 mg/dL 70-110 H = 652) HGB/HCT (H&H) - STAT [id number] 18:26:00 Test Item Value Reference Range Interpretation Comments HEMOGLOBIN (BEAKER) (test code = 9.2 g/dL 13.0-16.8 L 410) HEMATOCRIT (BEAKER) (test code = 27.0 % 40.0-50.0 L 411) BLOOD GAS, [id number] 17:38:00 Test Item Value Reference Range Interpretation Comments PH ARTERIAL (BEAKER) (test code = 7.36 7.35-7.45 383) PCO2 ARTERIAL (BEAKER) (test code 46 mmHg 35-45 H = 384) PO2 ARTERIAL (BEAKER) (test code 149 mmHg 80-90 H = 385) O2 SATURATION ARTERIAL (BEAKER) 98.8 % 96.0-97.0 H (test code = 386) HCO3 ARTERIAL (BEAKER) (test code 25 mmol/L 21-29 = 388) BASE EXCESS ARTERIAL (BEAKER) -0.2 mmol/L -2.0-3.0 (test code = 387) PATIENT TEMPERATURE (BEAKER) 37.2 C (test code = 1818) FIO2 (BEAKER) (test code = 1819) 50.0 % HGB/HCT (H&H) - STAT [id number] 17:38:00 Test Item Value Reference Range Interpretation Comments HEMOGLOBIN (BEAKER) (test code = 10.2 g/dL 13.0-16.8 L 410) HEMATOCRIT (BEAKER) (test code = 30.0 % 40.0-50.0 L 411) GLUCOSE-STAT [id number] 17:37:00 Test Item Value Reference Range Interpretation Comments GLUCOSE RANDOM (BEAKER) (test code 101 mg/dL 70-110 = 652) SODIUM NA-STAT [id number] 17:37:00 Test Item Value Reference Range Interpretation Comments SODIUM (BEAKER) (test code = 381) 137 meq/L 135-148 POTASSIUM-STAT [id number] 17:37:00 Test Item Value Reference Range Interpretation Comments POTASSIUM (BEAKER) (test code = 3.7 meq/L 3.6-5.5 379) CALCIUM, [id number] 17:37:00 Test Item Value Reference Range Interpretation Comments CALCIUM IONIZED (BEAKER) (test 1.21 mmol/L 1.12-1.27 code = 698) PH, BLOOD (BEAKER) (test code = 7.36 1810) BLOOD GAS, [id number] 16:27:00 Test Item Value Reference Range Interpretation Comments PH ARTERIAL (BEAKER) (test code = 7.33 7.35-7.45 L 383) PCO2 ARTERIAL (BEAKER) (test code 49 mmHg 35-45 H = 384) PO2 ARTERIAL (BEAKER) (test code 105 mmHg 80-90 H = 385) O2 SATURATION ARTERIAL (BEAKER) 97.5 % 96.0-97.0 H (test code = 386) HCO3 ARTERIAL (BEAKER) (test code 25 mmol/L 21-29 = 388) BASE EXCESS ARTERIAL (BEAKER) -1.2 mmol/L -2.0-3.0 (test code = 387) PATIENT TEMPERATURE (BEAKER) 36.5 C (test code = 1818) FIO2 (BEAKER) (test code = 1819) 50.0 % HGB/HCT (H&H) - STAT [id number] 16:27:00 Test Item Value Reference Range Interpretation Comments HEMOGLOBIN (BEAKER) (test code = 11.0 g/dL 13.0-16.8 L 410) HEMATOCRIT (BEAKER) (test code = 32.0 % 40.0-50.0 L 411) CALCIUM, [id number] 16:27:00 Test Item Value Reference Range Interpretation Comments CALCIUM IONIZED (BEAKER) (test 1.05 mmol/L 1.12-1.27 L code = 698) PH, BLOOD (BEAKER) (test code = 7.32 1810) GLUCOSE-STAT [id number] 16:25:00 Test Item Value Reference Range Interpretation Comments GLUCOSE RANDOM (BEAKER) (test code 106 mg/dL 70-110 = 652) SODIUM NA-STAT [id number] 16:25:00 Test Item Value Reference Range Interpretation Comments SODIUM (BEAKER) (test code = 381) 137 meq/L 135-148 POTASSIUM-STAT [id number] 16:25:00 Test Item Value Reference Range Interpretation Comments POTASSIUM (BEAKER) (test code = 3.6 meq/L 3.6-5.5 379) CALCIUM, [id number] 15:06:00 Test Item Value Reference Range Interpretation Comments CALCIUM IONIZED (BEAKER) (test 1.08 mmol/L 1.12-1.27 L code = 698) PH, BLOOD (BEAKER) (test code = 7.32 1810) GLUCOSE-STAT [id number] 15:05:00 Test Item Value Reference Range Interpretation Comments GLUCOSE RANDOM (BEAKER) (test code 105 mg/dL 70-110 = 652) SODIUM NA-STAT [id number] 15:05:00 Test Item Value Reference Range Interpretation Comments SODIUM (BEAKER) (test code = 381) 138 meq/L 135-148 POTASSIUM-STAT [id number] 15:05:00 Test Item Value Reference Range Interpretation Comments POTASSIUM (BEAKER) (test code = 3.5 meq/L 3.6-5.5 L 379) BLOOD GAS, [id number] 15:05:00 Test Item Value Reference Range Interpretation Comments PH ARTERIAL (BEAKER) (test code = 7.32 7.35-7.45 L 383) PCO2 ARTERIAL (BEAKER) (test code 55 mmHg 35-45 H = 384) PO2 ARTERIAL (BEAKER) (test code = 92 mmHg 80-90 H 385) O2 SATURATION ARTERIAL (BEAKER) 96.4 % 96.0-97.0 (test code = 386) HCO3 ARTERIAL (BEAKER) (test code 28 mmol/L 21-29 = 388) BASE EXCESS ARTERIAL (BEAKER) 0.9 mmol/L -2.0-3.0 (test code = 387) PATIENT TEMPERATURE (BEAKER) (test 36.8 C code = 1818) FIO2 (BEAKER) (test code = 1819) 50.0 % HGB/HCT (H&H) - STAT [id number] 15:05:00 Test Item Value Reference Range Interpretation Comments HEMOGLOBIN (BEAKER) (test code = 11.7 g/dL 13.0-16.8 L 410) HEMATOCRIT (BEAKER) (test code = 34.0 % 40.0-50.0 L 411) BASIC METABOLIC [id number] 09:37:00 Test Item Value Reference Range Interpretation Comments SODIUM (BEAKER) 139 meq/L 136-145 (test code = 381) POTASSIUM (BEAKER) 3.7 meq/L 3.5-5.1 (test code = 379) CHLORIDE (BEAKER) 105 meq/L 98-107 (test code = 382) CO2 (BEAKER) (test 25 meq/L 22-29 code = 355) BLOOD UREA NITROGEN 7 mg/dL 7-21 (BEAKER) (test code = 354) CREATININE (BEAKER) 0.85 mg/dL 0.57-1.25 (test code = 358) GLUCOSE RANDOM 96 mg/dL 70-105 (BEAKER) (test code = 652) CALCIUM (BEAKER) 9.0 mg/dL 8.4-10.2 (test code = 697) EGFR (BEAKER) (test 90 mL/min/1.73 ESTIMA LORRAINE GFR IS code = 1092) sq m NOT ACCURATE CREATININE CLEARANCE IN PREDICTING GLOMERULAR FILTRATION RATE . ESTIMATED GFR I S NOT APPLICABLE FOR DIALYSIS PATIEN TS. CBC W/PLT COUNT & AUTO [id number] 09:04:00 Test Item Value Reference Range Interpretation Comments WHITE BLOOD CELL COUNT (BEAKER) 5.4 K/ L 3.5-10.5 (test code = 775) RED BLOOD CELL COUNT (BEAKER) 3.24 M/ L 4.63-6.08 L (test code = 761) HEMOGLOBIN (BEAKER) (test code = 11.3 GM/DL 13.7-17.5 L 410) HEMATOCRIT (BEAKER) (test code = 33.3 % 40.1-51.0 L 411) MEAN CORPUSCULAR VOLUME (BEAKER) 102.8 fL 79.0-92.2 H (test code = 753) MEAN CORPUSCULAR HEMOGLOBIN 34.9 pg 25.7-32.2 H (BEAKER) (test code = 751) MEAN CORPUSCULAR HEMOGLOBIN CONC 33.9 GM/DL 32.3-36.5 (BEAKER) (test code = 752) RED CELL DISTRIBUTION WIDTH 14.2 % 11.6-14.4 (BEAKER) (test code = 412) PLATELET COUNT (BEAKER) (test 103 K/CU MM 150-450 L code = 756) MEAN PLATELET VOLUME (BEAKER) 11.8 fL 9.4-12.4 (test code = 754) NUCLEATED RED BLOOD CELLS 0 /100 WBC 0-0 (BEAKER) (test code = 413) NEUTROPHILS RELATIVE PERCENT 53 % (BEAKER) (test code = 429) LYMPHOCYTES RELATIVE PERCENT 32 % (BEAKER) (test code = 430) MONOCYTES RELATIVE PERCENT 11 % (BEAKER) (test code = 431) EOSINOPHILS RELATIVE PERCENT 3 % (BEAKER) (test code = 432) BASOPHILS RELATIVE PERCENT 1 % (BEAKER) (test code = 437) NEUTROPHILS ABSOLUTE COUNT 2.87 K/ L 1.78-5.38 (BEAKER) (test code = 670) LYMPHOCYTES ABSOLUTE COUNT 1.75 K/ L 1.32-3.57 (BEAKER) (test code = 414) MONOCYTES ABSOLUTE COUNT (BEAKER) 0.59 K/ L 0.30-0.82 (test code = 415) EOSINOPHILS ABSOLUTE COUNT 0.17 K/ L 0.04-0.54 (BEAKER) (test code = 416) BASOPHILS ABSOLUTE COUNT (BEAKER) 0.03 K/ L 0.01-0.08 (test code = 417) IMMATURE GRANULOCYTES-RELATIVE 0 % 0-1 PERCENT (BEAKER) (test code = 2801) BASIC METABOLIC [id number] 13:41:00 Test Item Value Reference Range Interpretation Comments SODIUM (BEAKER) 138 meq/L 136-145 (test code = 381) POTASSIUM (BEAKER) 4.2 meq/L 3.5-5.1 (test code = 379) CHLORIDE (BEAKER) 103 meq/L 98-107 (test code = 382) CO2 (BEAKER) (test 27 meq/L 22-29 code = 355) BLOOD UREA NITROGEN 11 mg/dL 7-21 (BEAKER) (test code = 354) CREATININE (BEAKER) 1.07 mg/dL 0.57-1.25 (test code = 358) GLUCOSE RANDOM 82 mg/dL 70-105 (BEAKER) (test code = 652) CALCIUM (BEAKER) 9.6 mg/dL 8.4-10.2 (test code = 697) EGFR (BEAKER) (test 69 mL/min/1.73 ESTIMA LORRAINE GFR IS code = 1092) sq m NOT ACCURATE CREATININE CLEARANCE IN PREDICTING GLOMERULAR FILTRATION RATE . ESTIMATED GFR I S NOT APPLICABLE FOR DIALYSIS PATIEN TS. CBC W/PLT COUNT & AUTO [id number] 13:21:00 Test Item Value Reference Range Interpretation Comments WHITE BLOOD CELL COUNT (BEAKER) 4.8 K/ L 3.5-10.5 (test code = 775) RED BLOOD CELL COUNT (BEAKER) 3.61 M/ L 4.63-6.08 L (test code = 761) HEMOGLOBIN (BEAKER) (test code = 12.6 GM/DL 13.7-17.5 L 410) HEMATOCRIT (BEAKER) (test code = 37.7 % 40.1-51.0 L 411) MEAN CORPUSCULAR VOLUME (BEAKER) 104.4 fL 79.0-92.2 H (test code = 753) MEAN CORPUSCULAR HEMOGLOBIN 34.9 pg 25.7-32.2 H (BEAKER) (test code = 751) MEAN CORPUSCULAR HEMOGLOBIN CONC 33.4 GM/DL 32.3-36.5 (BEAKER) (test code = 752) RED CELL DISTRIBUTION WIDTH 13.9 % 11.6-14.4 (BEAKER) (test code = 412) PLATELET COUNT (BEAKER) (test 125 K/CU MM 150-450 L code = 756) MEAN PLATELET VOLUME (BEAKER) 11.0 fL 9.4-12.4 (test code = 754) NUCLEATED RED BLOOD CELLS 0 /100 WBC 0-0 (BEAKER) (test code = 413) NEUTROPHILS RELATIVE PERCENT 44 % (BEAKER) (test code = 429) LYMPHOCYTES RELATIVE PERCENT 38 % (BEAKER) (test code = 430) MONOCYTES RELATIVE PERCENT 13 % (BEAKER) (test code = 431) EOSINOPHILS RELATIVE PERCENT 4 % (BEAKER) (test code = 432) BASOPHILS RELATIVE PERCENT 1 % (BEAKER) (test code = 437) NEUTROPHILS ABSOLUTE COUNT 2.11 K/ L 1.78-5.38 (BEAKER) (test code = 670) LYMPHOCYTES ABSOLUTE COUNT 1.81 K/ L 1.32-3.57 (BEAKER) (test code = 414) MONOCYTES ABSOLUTE COUNT (BEAKER) 0.63 K/ L 0.30-0.82 (test code = 415) EOSINOPHILS ABSOLUTE COUNT 0.20 K/ L 0.04-0.54 (BEAKER) (test code = 416) BASOPHILS ABSOLUTE COUNT (BEAKER) 0.03 K/ L 0.01-0.08 (test code = 417) IMMATURE GRANULOCYTES-RELATIVE 0 % 0-1 PERCENT (BEAKER) (test code = 6725)
[2020-12-24 18:27] LABS: TOTAL PROTEIN,PERITONEAL FLUID <3.0 g/dL
[2020-12-24] MEDS ORDERED: ATORVASTATIN 20 MG TAB ONE (19:56)
--- NOTE | 2020-12-24 20:42 | PN ---
Date of Progress Note: 12/21/2020 Subjective: Mr. Ashby came in with ascites, edema, CHF, has known esophageal varices, cirrhosis, ra pid atrial fibrillation. He is better controlled on digoxin and metoprolol. Not a candidate for ami odarone. Not a candidate for anticoagulation and definitely not a candidate for cardioversion with a shock knowing that he cannot be anticoagulated. I think he needs a paracentesis. GI is following. Pulmonology is following. Nephrology is following. I do not have any further recommendation jenna hill. I will be available for questions. BÁRBARA/ROB Voice ID: [id number] Report ID: [id number]
--- NOTE | 2020-12-24 20:43 | P.PN ---
Date of Service: 12/24/20 Vital Signs Temp Pulse Resp BP Pulse Ox 97.9 F 123 H 20 97/58 L 98 12/24/20 16:00 12/24/20 18:00 12/24/20 18:00 12/24/20 18:00 12/24/20 18:00 Medications Acetaminophen (Acetaminophen 500 Mg Tab) 500 mg PO Q4HP PRN PRN Reason: TEMP > 101' F Hydrocodone Bitart/Acetaminophen (Hydrocodone/Apap 5/325 Mg Tab) 1 tab PO Q6H PRN PRN Reason: Pain scale 5-7 (Moderate) Last Admin: 12/21/20 07:59 Dose: 1 tab Documented by: Arformoterol Tartrate (Arformoterol Tartrate 15 Mcg/2 Ml Vial.Neb) 15 mcg NEB BIDRESP [facility] Last Admin: 12/24/20 09:11 Dose: 15 mcg Documented by: Atorvastatin Calcium (Atorvastatin 40 Mg Tab) 40 mg PO BEDTIME [facility] Last Admin: 12/23/20 20:27 Dose: 40 mg Documented by: Digoxin (Digoxin 0.125 Mg Tablet) 0.125 mg PO DAILY [facility] Last Admin: 12/24/20 09:57 Dose: 0.125 mg Documented by: Folic Acid (Folic Acid 1 Mg Tablet) 1 mg PO DAILY [facility] Last Admin: 12/24/20 09:55 Dose: 1 mg Documented by: Furosemide (Furosemide 20 Mg/ 2ml Vial) 20 mg IV Q8H [facility] Last Admin: 12/24/20 12:00 Dose: 20 mg Documented by: Hydromorphone HCl (Hydromorphone Hcl 0.5 Mg/0.5 Ml Inj) 0.5 mg IV Q6H PRN PRN Reason: Pain scale 5-7 (Moderate) Last Admin: 12/24/20 13:47 Dose: 0.5 mg Documented by: Sodium Chloride (Sodium Chloride) 250 mls @ 0 mls/hr IV .Q0M [facility] Last Admin: 12/23/20 17:26 Dose: 250 mls Documented by: Norepinephrine Bitartrate 4 mg (/ Dextrose) 250 mls @ 20 mls/hr IV PRN PRN; Protocol PRN Reason: HEMODYNAMIC PARAMETERS Last Admin: 12/22/20 23:34 Dose: 250 mls Documented by: Ceftriaxone Sodium 1,000 mg/ (Sodium Chloride) 50 mls @ 100 mls/hr IVPB DAILY [facility]; Protocol Last Admin: 12/24/20 09:53 Dose: 50 mls Documented by: Pantoprazole Sodium 80 mg/ (Sodium Chloride) 250 mls @ 25 mls/hr IV Q10H [facility]; Protocol Last Admin: 12/24/20 11:08 Dose: 250 mls Documented by: Octreotide Acetate 500 mcg/ (Sodium Chloride) 500 mls @ 50 mls/hr IV Q10H [facility] Last Admin: 12/24/20 11:08 Dose: 500 mls Documented by: Ipratropium [place] (Ipratropium Brom 0.5mg/2.5ml) 0.5 mg NEB [id number] PRN PRN Reason: SHORTNESS OF BREATH Levothyroxine Sodium (Levothyroxine Sod 0.05 Mg Tablet) 0.05 mg PO DAILYAC [facility] Last Admin: 12/24/20 05:09 Dose: 0.05 mg Documented by: Lorazepam (Lorazepam 0.5 Mg Tablet) 0.5 mg PO BID PRN PRN Reason: ANXIETY Metoprolol Tartrate (Metoprolol Tar 25 Mg Tab) 12.5 mg PO BID 6AM 6PM [facility] Last Admin: 12/24/20 18:00 Dose: Not Given Documented by: Ondansetron HCl (Ondansetron 4 Mg/2 Ml Vial) 4 mg IV Q6HP PRN PRN Reason: NAUSEA / VOMITING Last Admin: 12/20/20 16:09 Dose: 4 mg Documented by: Rifaximin (Rifaximin 550 Mg Tab) 550 mg PO BID [facility]; Protocol Last Admin: 12/24/20 09:55 Dose: 550 mg Documented by: Sodium Chloride (Flush Normal Saline 10 Ml) 10 ml IV BID [facility] Last Admin: 12/24/20 09:00 Dose: 10 ml Documented by: Sodium Chloride (Sodium Chloride 0.9% 10ml Inj) 10 ml IV UD PRN PRN Reason: Diluant Sucralfate (Sucralfate 1gm/10ml Ucup) 1 gm FT QID [facility] Last Admin: 12/24/20 17:54 Dose: 1 gm Documented by: Thiamine HCl (Thiamine Hcl 100 Mg Tablet) 100 mg PO DAILY [facility] Last Admin: 12/24/20 09:54 Dose: 100 mg Documented by: Tramadol HCl (Tramadol Hcl 50 Mg Tab) 50 mg PO TID PRN PRN Reason: Pain scale 2-4 (Mild) Microbiology Results 12/20/20 10:25 Blood - Blood Aerobic Blood Culture - Preliminary No growth in 24 hours. 12/20/20 10:25 Blood - Blood Anaerobic Blood Culture - Preliminary No growth in 24 hours. Assessment/ Plan: Nephrology No dyspnea. CORONEL No chest pain Malaise and weakness No acute events overnight Vitals, medications, blood work and imaging reviewed in the chart General: Oriented x3, Cooperative HEENT: Atraumatic Neck: Supple Respiratory: Diminished Cardiovascular: Regular rate/rhythm, Edema Gastrointestinal: Hypoactive, Distended Musculoskeletal: No clubbing, No contractures Integumentary: No rashes, No cyanosis Neurological: Normal speech Greater than 30min patient care. Laboratory Data (last 24 hrs) 12/20/20 09:48: PT 15.4 H, INR 1.34 12/20/20 09:48: WBC 5.40, Hgb 8.4 L, Hct 25.1 L, Plt Count 159 12/20/20 09:48: Sodium 128 L, Potassium 4.7, BUN 23 H, Creatinine 1.53 H, Glucose 85, Magnesium 2.0, Total Bilirubin 1.6 H, AST 77 H, ALT 35, Alkaline Phosphatase 65 Imagings Data: EXAM DESCRIPTION: RAD - Chest Single View - 12/21/2020 5:59 am CLINICAL HISTORY: Follow up CHF COMPARISON: Chest Single View dated 12/20/2020; Chest Abd Pelvis Wo Con dated 12/20/2020 FINDINGS: Lines: None. Lungs: Mild increased opacity the left lung base. The lung volumes are slightly less as well. Pleural: Difficult to exclude a small left pleural effusion. Cardiac: Cardiomegaly. Bones: No acute fractures. Other: IMPRESSION: Mild increased left basilar opacities likely representing atelectasis. No definite edema identified . EXAM DESCRIPTION: CT - Chest Abd Pelvis Wo Con - 12/20/2020 12:56 pm CLINICAL HISTORY: ABDOMINAL DISTENTION, chest pain COMPARISON: No comparisons TECHNIQUE: Axial 5 millimeter thick images of the chest, abdomen and pelvis were obtained without IV contrast. Oral contrast was administered. All CT scans are performed using dose optimization technique as appropriate and may include automated exposure control or mA/KV adjustment according to patient size. FINDINGS: Fibrotic stranding and atelectasis changes are present in the lung bases. An 11 millimeter nodular focus abuts the right diaphragmatic pleura. No clearly malignant mass seen in the chest. There is an 8 centimeter thin-walled fluid collection in the medial right chest along the pleural margin. This extends from the hilum to the diaphragm. There is atelectasis along the lateral margin. Lateral left gutter atelectasis changes are present. Lateral lung base pneumonia is not excluded but lesser in likelihood. There is a trace amount of left pleural effusion. No pneumothorax. No pleural based mass. No chest wall mass or abnormal axillary lymphadenopathy seen. Mediastinal and hilar regions show no mass or lymphadenopathy. No significant cardiac finding. Liver is small with the left lobe prominent relative to the right. There is a pronounced nodularity of the liver capsule. A few parenchymal calcifications are present. This is an advanced cirrhotic liver pattern. No focal liver lesions seen though noncontrast imaging is diminished in sensitivity for lesion detection. No biliary tree dilatation. Gallbladder is difficult to distinguish from the ascites. Dilatation of the gallbladder is not suspected. Numerous calcifications present in a normal size spleen. No focal splenic lesion on noncontrast imaging imaging . Pancreas is poorly visualized. Primary pancreatic process is not suspected. No hydronephrosis or suspicious renal mass. Isodense masses and pyelonephritis cannot be excluded on non contrast imaging. No adrenal abnormalities. Urinary b ladder is fully contracted around a Suárez catheter. No dilated bowel loops or focal ball bowel wall thickening. No free air or pneumatosis. Colonic diverticulosis is present. Much of the bowel is isodense to the ascites. Posterior distal rectal wall near the anus is poorly visualized. The oblique imaging angle through the distal rectum accentuates wall thickness. Patient has a very large volume of ascites filling the peritoneal cavity. No omental thickening seen. Fluid retention is present in the subcutaneous fatty tissues. No mass or bulky lymphadenopathy. Disc and bone degenerative changes are present not unremarkable for patient age. Dense arterial tree calcifications are present. IMPRESSION: Large volume of ascites present with advanced cirrhotic changes in the liver. No focal liver lesions seen though sensitivity is limited in the absence of IV contrast. No bowel obstruction, free air or emergent CT chest, abdomen or pelvis finding. Additional nonacute findings detailed in the body of the report. CT abdomen and pelvis imaging shows no significant or suspicious finding. EXAM DESCRIPTION: US - Extrem Venous W Compress Deepak - 12/20/2020 12:22 pm CLINICAL HISTORY: SWELLING Bilateral leg edema and swelling. COMPARISON: Lower Extremity Arterial Bilat dated 09/17/2017 TECHNIQUE: Real-time sonographic interrogation of the left and right lower extremity deep venous systems was performed. FINDINGS: Normal compressibility, flow augmentation, phasic flow and spontaneous flow is identified in both the left and right lower extremity deep venous systems. 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 IMPRESSION: No sonographic evidence of left or right lower extremity deep venous thrombosis. Conclusions/Impression: ADILENE in the setting of hypotension & anasarca CKD III with proteinuria -Lasix 20mg IV q8h as tolerated Hyponatremia -Continue Lasix IV Hyperkalemia/ Hypokalemia -Continue Lasix -Replete potassium prn Hypotension -IV Albumin prn -Vasopressor therapy as needed Diastolic CHF, A/C Anasarca -Continue Lasix -Low sodium diet Severe malnutrition Hypoalbuminemia -Give IV Albumin prn -Consider protein supplementation Anemia in chronic illness -Transfuse PRBC as needed -Retacrit prn Liver cirrhosis with ascites & varices HCV -Monitor LFT -GI following. Continue Octreotide End of life issues reviewed with the patient and his . Case reviewed with Dr. Mccann
[2020-12-24] MEDS: ATORVASTATIN 40 MG TAB PO SCH (21:00)
--- NOTE | 2020-12-24 21:24 | CON ---
Date of Consultation: 12/20/2020 Reason For Consultation: Atrial fibrillation, congestive heart failure, hypertension, and dyslipidem ia. History Of Present Illness: Mr. Ashby is a 70-year-old, came in with shortness of breath, rapid atr ial fibrillation, has had these things happen before. He has chronic atrial fibrillation, hypertensi on, dyslipidemia, has chronic diastolic congestive heart failure. By the time I saw him, he has alre lynn had a venous Doppler that was negative. Chest x-ray showed interstitial edema. EKG showed atria l fibrillation with rapid ventricular response. Patient is known to have varices, liver failure, not a candidate for anticoagulation. He has ascites requiring thoracentesis and paracentesis. Cardiac lacey, I had recommended digoxin and beta-venancio for rate control. He is really not having any chest pain or syncope. Past Medical History: As stated above. Allergies: INCLUDE TYLENOL AND NAPROXEN. Review of Systems: Noncontributory. Social History: Noncontributory. Family History: Noncontributory. Medications: At home include Eliquis, inhalers, Lipitor, gabapentin, Ativan, Synthroid, metoprolol, and hydrochlorothiazide, but we are not sure he is taking any of them. Physical Examination: Vital Signs: When I saw him, initially his heart rate was 150, blood pressure was 112/55. He was af ebrile. General: He appeared to be weak and somnolent and fatigued, but no acute distress. HEENT: Negative. Neck: Supple. No bruit. Chest: Reveals rales at both bases. Cardiac: Reveals atrial fibrillation. Abdomen: Reveals ascites. Extremities: Reveal edema. Diagnostic Data: Of significance were listed above. Also, he has bilirubin of 6.5, creatinine of 1. 74. BNP was 1619. Rest of those mentioned earlier. Impression And Plan: Acute on chronic systolic congestive heart failure with ascites and edema, may need thoracentesis and paracentesis, may need diuresis, has atrial fibrillation. He should not be on anticoagulant with his history. As far as the liver and the cirrhosis is concerned and the varices is concerned, we should focus on digoxin and we should focus on metoprolol, rate control and focus on compliance as far as his medication is concerned. Nephrology, Pulmonology, and Gastroenterology are involved in the care and I will be continuing to follow him. MARGE Voice ID: [id number] Report ID: [id number]
[2020-12-25] MEDS: FUROSEMIDE 20 MG/ 2ML VIAL IV SCH ×3 (04:00→20:17)
[2020-12-25 05:21] VITALS: BMI 26.4
[2020-12-25] MEDS: METOPROLOL TAR 25 MG TAB PO SCH ×2 (06:00→16:52)
--- NOTE | 2020-12-25 06:15 | P.PN ---
Subjective Date of Service: 12/25/20 Primary Care Provider: Dr. Baker; Cardiology-Dr. Rodrigez Chief Complaint: Shortness of breath Subjective: Other (Patient reports improvement. Patient wants to eat.) Physical Examination - Vital Signs Temperature: 97.8 F Blood Pressure: 119/84 Pulse: 146 Respirations: 10 Pulse Ox (%): 86 Assessment & Plan Discharge Plan: Other (LTAC versus skilled placement) Plan to discharge in: Greater than 2 days Physician Review Additional Text: COVID: negative Chest x-ray: COMPARISON: No comparisons FINDINGS: Portable technique limits examination quality. Mild interstitial pulmonary edema is seen. Linear opacities in the left lung base laterally probably represent atelectasis. The heart is prominent in size. A large hiatal hernia is likely present appear No displaced fractures. Venous doppler: COMPARISON: Lower Extremity Arterial Bilat dated 09/17/2017 TECHNIQUE: Real-time sonographic interrogation of the left and right lower extremity deep venous systems was performed. FINDINGS: Normal compressibility, flow augmentation, phasic flow and spontaneous flow is identified in both the left and right lower extremity deep venous systems. 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 IMPRESSION: No sonographic evidence of left or right lower extremity deep venous thrombosis. CT head: COMPARISON: Chest Abd Pelvis Wo Con dated 12/20/2020 TECHNIQUE: Axial 5 mm thick images of the head were obtained without IV contrast. All CT scans are performed using dose optimization technique as appropriate and may include automated exposure control or mA/KV adjustment according to patient size. FINDINGS: No intracranial hemorrhage, mass, edema or shift of mid-line structures. No acute cortical based infarction identified. No cortical edema or sulcal effacement. Diminished attenuation the left external capsule and insular cortex region is most likely remote. There are scattered chronic ischemic changes in the cerebral white matter. No abnormal extra-axial fluid collections. Mild to moderate for age atrophy changes are present. Ventricles are in proportion to the volume loss. Patient has dense arterial tree calcifications. Mastoid air cells and visualized portions of the paranasal sinuses are clear. No acute bony findings. IMPRESSION: No intracranial hemorrhage, mass or emergent intracranial CT finding. Atrophy and chronic ischemic changes are present with focal ischemic changes in the left external capsule and insular cortex region. Chronic ischemic changes can mask nonhemorrhagic acute infarction. MR brain followup can be obtained if there is ongoing concern for acute ischemia. CT chest/abdomen and pelvis: COMPARISON: No comparisons TECHNIQUE: Axial 5 millimeter thick images of the chest, abdomen and pelvis were obtained without IV contrast. Oral contrast was administered. All CT scans are performed using dose optimization technique as appropriate and may include automated exposure control or mA/KV adjustment according to patient size. FINDINGS: Fibrotic stranding and atelectasis changes are present in the lung bases. An 11 millimeter nodular focus abuts the right diaphragmatic pleura. No clearly malignant mass seen in the chest. There is an 8 centimeter thin-walled fluid collection in the medial right chest along the pleural margin. This extends from the hilum to the diaphragm. There is atelectasis along the lateral margin. Lateral left gutter atelectasis changes are present. Lateral lung base pneumonia is not excluded but lesser in likelihood. There is a trace amount of left pleural effusion. No pneumothorax. No pleural based mass. No chest wall mass or abnormal axillary lymphadenopathy seen. Mediastinal and hilar regions show no mass or lymphadenopathy. No significant cardiac finding. Liver is small with the left lobe prominent relative to the right. There is a pronounced nodularity of the liver capsule. A few parenchymal calcifications are present. This is an advanced cirrhotic liver pattern. No focal liver lesions seen though noncontrast imaging is diminished in sensitivity for lesion detection. No biliary tree dilatation. Gallbladder is difficult to distinguish from the ascites. Dilatation of the gallbladder is not suspected. Numerous calcifications present in a normal size spleen. No focal splenic lesion on noncontrast imaging imaging . Pancreas is poorly visualized. Primary pancreatic process is not suspected. No hydronephrosis or suspicious renal mass. Isodense masses and pyelonephritis cannot be excluded on non contrast imaging. No adrenal abnormalities. Urinary bladder is fully contracted around a Suárez catheter. No dilated bowel loops or focal ball bowel wall thickening. No free air or pneumatosis. Colonic diverticulosis is present. Much of the bowel is isodense to the ascites. Posterior distal rectal wall near the anus is poorly visualized. The oblique imaging angle through the distal rectum accentuates wall thickness. Patient has a very large volume of ascites filling the peritoneal cavity. No omental thickening seen. Fluid retention is present in the subcutaneous fatty tissues. No mass or bulky lymphadenopathy. Disc and bone degenerative changes are present not unremarkable for patient age. Dense arterial tree calcifications are present. IMPRESSION: Large volume of ascites present with advanced cirrhotic changes in the liver. No focal liver lesions seen though sensitivity is limited in the absence of IV contrast. No bowel obstruction, free air or emergent CT chest, abdomen or pelvis finding. Additional nonacute findings detailed in the body of the report. CT abdomen and pelvis imaging shows no significant or suspicious finding. Paracentesis: COMPARISON: No comparisons FINDINGS: Informed consent was obtained and time-out was performed. Patient's abdomen was prepped and draped in the usual sterile fashion. 1% lidocaine was used for local anesthetic purposes. A small skin incision was made. A paracentesis catheter was guided into the peroneal cavity under sonographic guidance. A small amount of fluid was sent for requested lab studies. A large volume paracentesis was performed. The patient tolerated the procedure well. Patient was administered IV albumin per protocol following the procedure. IMPRESSION: Successful ultrasound-guided paracentesis. EGD: Findings: 1. LA class D esophagitis in the lower esophagus 2. 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 Large amount of dark heme fluid/blacks blood/clots in the body of the stomach, partially suctioned out with endoscopy Physical Exam: GENERAL: Patient appears older than his stated age. Patient alert and cooperative. Currently on nasal cannula. VITAL SIGNS: Reviewed. Blood pressure stable at this time. Now off Levophed. HEENT: neck supple. Dry mouth LUNGS: Better air movement bilateral. Currently on 2 L per nasal cannula HEART: Atrial fibrillation rate around 100-120 ABDOMEN: Patient with ascites EXTREMITIES: Edema to the lower extremities improved NEUROLOGIC: Patient alert, cooperative. No focal deficits. No slurred speech. SKIN: As above. Significant edema to the lower extremity. Impression: Dyspnea secondary to acute on chronic CHF likely diastolic versus systolic complicated with anasarca, atrial fibrillation with RVR on chronic anticoagulation therapy, and Hypotension related to volume depletion and GI bleed Hepatitis C with suspected cirrhosis complicated with significant anasarca and lower extremity edema Acute on chronic renal disease stage III with hyponatremia Acute anemia with chronic disease with possible GI bleed Hypertension Hyperlipidemia CAD with prior stent Hypothyroidism Anxiety Slurred speech Peripheral vascular disease with history of bypass Noncompliance with follow-up and medication Plan: Dyspnea secondary to acute on chronic CHF likely diastolic versus systolic complicated with anasarca, atrial fibrillation with RVR on chronic anticoagulation therapy, and Hypotension related to volume depletion and GI bleedLA class D esophagitis/grade 2-3 varices with banding: Patient overall improved. Hemoglobin stable at 9.0. Patient has received 3 units of blood. EGD done on Saturday showed severe esophagitis with grade 2-3 varices. Banding was done. Patient remains on clear liquid diet. Patient also on Protonix drip, octreotide drip and Rocephin. Will discuss with GI about advancing his diet. Patient remains off IV Levophed. Patient with atrial fibrillation with rate around 100-120. Will increase metoprolol to 25 mg 1 pill twice daily for better rate control. Patient also on digoxin 125 mcg daily. Nephrology continues with diuresis. Patient on Lasix 20 mg IV 3 times a day. Continue to discuss with GI, cardiology and nephrology. Spoke at length with the patient and concerning plan of care. Patient wants to make decisions. wants patient to continue with full CODE STATUS. If his condition were to significantly decline or if he was on life support, he would not want to be on life support for a long period of time. Also discussed the possibility of long- term acute facility placement and skilled placement as the patient will likely require this prior to going home. Patient prefers to go home but he needs to understand that his condition is chronic with poor quality. I would highly recommend skilled placement or long-term acute care facility before he goes ho me. Social work to help in this process. Anticipate long-term acute care facility. Social work to discuss further with as she is making decisions for him. I will turn the service over to the hospitalist team tomorrow. I will go over plan of care with him. Hepatitis C with suspected cirrhosis complicated with significant anasarca and lower extremity edema: Patient is status post paracentesis with 2 L removed last week. So far cultures negative. Continue with above plan of care. Continue with GI recommendations. Acute on chronic renal disease stage III with hyponatremia: Renal function and hyponatremia improved. Continue IV diuretic therapy. Currently on Lasix 20 mg 3 times a day IV. 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 Hemoglobin stable. Continue to maintain hemoglobin above 7.5. GI recommends to hold Eliquis. Patient remains on Protonix drip, octreotide drip, and Rocephin IV. Will discuss with GI about advancing his diet Hypertension: Increase metoprolol to 25 mg 1 pill twice daily for better rate control. Patient off Levophed. CAD with prior stent: Continue with metoprolol. Hypothyroidism: Continue levothyroxine 50 mcg daily. Patient with poor compliance Anxiety: Continue with medication as needed. Slurred speech: Resolved. CT scan shows no evidence of stroke, patient is at risk for stroke. Continue with above plan of care. Peripheral vascular disease with history of bypass: Continue to hold Eliquis Noncompliance with follow-up and medication: Compliance with medication and follow-up addressed in detail. Will make sure patient is able to afford all his medications. Will need to make sure patient has close follow-up at discharge. Code Status: Full Code DVT prophylaxis: SCD. Continue to hold Eliquis and anticoagulation therapy due to EGD finding Advanced Care Planning-30 minutes: Discussed at length with plan of care. Will recommend long-term acute care facility versus skilled placement. Patient is wanting to make decisions. seems to be agreeable to long-term acute care facility. Social work to continue to help with this process. Time Spent Managing Pts Care (In Minutes): 55
[2020-12-25 06:44] LABS: Absolute Lymphocytes (CBC) 0.6 K/uL (0.7-4.9); Basophils % 0.6 % (0-1.3); Hematocrit 27.2 % (39.6-49.0); Lymphocytes % 13.5 % (15.3-44.8); RBC Red Blood Cell Count 2.92 M/uL (4.33-5.43)
[2020-12-25] MEDS ORDERED: METOPROLOL TAR 25 MG TAB ONE ×2 (07:09→16:52)
[2020-12-25] MEDS ORDERED: ARFORMOTEROL TARTRATE 15 MCG/2 ML VIAL.NEB ONE ×2 (07:17→19:57)
[2020-12-25 07:19] LABS: Albumin 2.3 g/dL (3.4-5.0); Protein, Total 5.8 g/dL (6.4-8.2)
[2020-12-25] MEDS: ARFORMOTEROL TARTRATE 15 MCG/2 ML VIAL.NEB NEB SCH ×2 (07:19→20:00)
[2020-12-25 07:20] LABS: Magnesium 1.6 mg/dL (1.8-2.4)
[2020-12-25 07:22] LABS: Potassium 2.8 mmol/L (3.5-5.1)
[2020-12-25] MEDS ORDERED: KCL 20 MEQ/100 mL IVPB 20 MEQ/100 ML BAG IV ONE ×4 (07:42→22:19)
[2020-12-25] MEDS: KCL 20 MEQ/100 mL IVPB 20 MEQ/100 ML BAG IV SCH ×5 (07:45→22:23)
[2020-12-25] MEDS: OCTREOTIDE 500 MCG in NA CHLORIDE 0.9% 500 ML IV SCH ×2 (08:02→19:33)
[2020-12-25] MEDS: PANTOPRAZOLE INJ 80 MG in NA CHLORIDE 0.9% 250 ML IV SCH ×2 (08:02→19:33)
[2020-12-25] MEDS: Rifaximin 550 MG Tab PO SCH ×2 (08:38→20:19)
[2020-12-25] MEDS: CEFTRIAXONE 1,000 MG in NA CHLORIDE 0.9% 50 ML IVPB SCH (08:38)
[2020-12-25] MEDS: SUCRALFATE 1GM/10ML UCUP FT SCH ×4 (08:38→20:18)
[2020-12-25] MEDS: DIGOXIN 0.125 MG TABLET PO SCH (08:39)
[2020-12-25] MEDS: LEVOTHYROXINE SOD 0.05 MG TABLET PO SCH (08:39)
[2020-12-25] MEDS ORDERED: FOLIC ACID 1 MG TABLET ONE (08:40)
[2020-12-25] MEDS ORDERED: THIAMINE HCL 100 MG TABLET ONE (08:40)
[2020-12-25] MEDS: THIAMINE HCL 100 MG TABLET PO SCH (08:41)
[2020-12-25] MEDS ORDERED: HYDROMORPHONE HCL 0.5 MG/0.5 ML INJ ONE ×4 (08:41→20:09)
[2020-12-25] MEDS: FOLIC ACID 1 MG TABLET PO SCH (08:42)
[2020-12-25] MEDS: HYDROMORPHONE HCL 0.5 MG/0.5 ML INJ IV PRN ×3 (08:42→21:34)
--- NOTE | 2020-12-25 10:51 | RAD REPORT ---
EXAM DESCRIPTION: RAD - Abdomen 1 View (KUB) - 12/25/2020 10:24 am CLINICAL HISTORY: distetnion COMPARISON: Chest Abd Pelvis Wo Con dated 12/20/2020; Paracentesis Proc Guidance dated 12/21/2020 FINDINGS: Nonobstructive bowel gas pattern. No acute osseous abnormality.Visualized lungs are unrema rkable.No abnormal distended colon centrally. This is similar to 12/20/2020. There has likely been so me reaccumulation of ascites. Peripheral vascular calcifications. IMPRESSION: Nonspecific small bowel and colonic distension which may reflect an ileus.
[2020-12-25] MEDS ORDERED: FUROSEMIDE 20 MG/ 2ML VIAL ONE ×2 (11:12→20:09)
[2020-12-25] MEDS ORDERED: SIMETHICONE 80 MG TAB ONE (20:09)
[2020-12-25] MEDS: ATORVASTATIN 40 MG TAB PO SCH (20:18)
[2020-12-25] MEDS: SIMETHICONE 80 MG TAB PO SCH (20:18)
[2020-12-25] MEDS ORDERED: MAGNESIUM SULFATE 1 gm IVPB 1 GM/100 ML BAG IV ONE ×2 (21:30)
[2020-12-26] MEDS ORDERED: FUROSEMIDE 20 MG/ 2ML VIAL ONE ×2 (04:13→20:31)
[2020-12-26] MEDS: FUROSEMIDE 20 MG/ 2ML VIAL IV SCH ×3 (04:15→20:34)
[2020-12-26] MEDS: PANTOPRAZOLE INJ 80 MG in NA CHLORIDE 0.9% 250 ML IV SCH ×2 (04:19→14:05)
[2020-12-26 05:11] LABS: Absolute Lymphocytes (CBC) 0.7 K/uL (0.7-4.9); Basophils % 0.8 % (0-1.3); Lymphocytes % 13.1 % (15.3-44.8); MPV 8.2 fL (7.6-11.3); RBC Red Blood Cell Count 2.85 M/uL (4.33-5.43)
[2020-12-26] MEDS ORDERED: METOPROLOL TAR 25 MG TAB ONE (05:11)
[2020-12-26 05:23] LABS: Albumin 2.3 g/dL (3.4-5.0); Magnesium 1.7 mg/dL (1.8-2.4); Potassium 3.1 mmol/L (3.5-5.1); Protein, Total 6.2 g/dL (6.4-8.2)
[2020-12-26] MEDS: LEVOTHYROXINE SOD 0.05 MG TABLET PO SCH ×2 (05:29→06:06)
[2020-12-26 05:46] LABS: Blood Morphology Comment NOT SEEN (NOT SEEN); Platelet Estimate DECR
[2020-12-26] MEDS: METOPROLOL TAR 25 MG TAB PO SCH ×2 (06:05→18:00)
[2020-12-26] MEDS ORDERED: ARFORMOTEROL TARTRATE 15 MCG/2 ML VIAL.NEB ONE ×2 (08:21→19:32)
[2020-12-26] MEDS: ARFORMOTEROL TARTRATE 15 MCG/2 ML VIAL.NEB NEB SCH ×2 (08:25→20:00)
[2020-12-26] MEDS: OCTREOTIDE 500 MCG in NA CHLORIDE 0.9% 500 ML IV SCH (10:46)
[2020-12-26] MEDS ORDERED: DIGOXIN 0.25 MG TABLET ONE (10:54)
[2020-12-26] MEDS ORDERED: FOLIC ACID 1 MG TABLET ONE (10:54)
[2020-12-26] MEDS ORDERED: THIAMINE HCL 100 MG TABLET ONE (10:54)
[2020-12-26] MEDS ORDERED: SIMETHICONE 80 MG TAB ONE ×2 (10:55→20:31)
[2020-12-26] MEDS: SUCRALFATE 1GM/10ML UCUP FT SCH ×4 (10:56→20:34)
[2020-12-26] MEDS: FOLIC ACID 1 MG TABLET PO SCH (10:56)
[2020-12-26] MEDS: THIAMINE HCL 100 MG TABLET PO SCH (10:56)
[2020-12-26] MEDS: SIMETHICONE 80 MG TAB PO SCH ×2 (10:57→20:35)
[2020-12-26] MEDS: CEFTRIAXONE 1,000 MG in NA CHLORIDE 0.9% 50 ML IVPB SCH (10:57)
[2020-12-26] MEDS ORDERED: MAGNESIUM SULFATE 1 gm IVPB 1 GM/100 ML BAG IV ONE ×2 (11:12→12:40)
[2020-12-26] MEDS: Rifaximin 550 MG Tab PO SCH ×2 (11:26→20:34)
[2020-12-26] MEDS: DIGOXIN 0.125 MG TABLET PO SCH (11:26)
[2020-12-26] MEDS ORDERED: KCL 20 MEQ/100 mL IVPB 20 MEQ/100 ML BAG IV ONE ×2 (12:40→16:18)
[2020-12-26] MEDS: KCL 20 MEQ/100 mL IVPB 20 MEQ/100 ML BAG IV SCH ×2 (12:43→16:29)
[2020-12-26] MEDS ORDERED: HYDROMORPHONE HCL 0.5 MG/0.5 ML INJ ONE ×2 (15:37→20:53)
[2020-12-26] MEDS: HYDROMORPHONE HCL 0.5 MG/0.5 ML INJ IV PRN ×2 (15:39→20:54)
--- NOTE | 2020-12-26 17:29 | P.PN ---
Subjective Date of Service: 12/26/20 Family still undecided about hospice care. Discussed with watch caser. Possible placement in a.m.. If not want to be placed on hospice care and we will work on LTAC placement Review of Systems 10-point ROS is otherwise unremarkable Physical Examination - Vital Signs Temperature: 97.8 F Blood Pressure: 105/70 Pulse: 99 Respirations: 16 Pulse Ox (%): 97 - Physical Exam General: Alert, In no apparent distress, Oriented x3 HEENT: Atraumatic, PERRLA, EOMI Neck: Supple, JVD not distended Respiratory: Clear to auscultation bilaterally, Normal air movement Cardiovascular: Regular rate/rhythm, Normal S1 S2 Gastrointestinal: Normal bowel sounds, No tenderness Musculoskeletal: No tenderness Integumentary: No rashes Neurological: Normal speech, Normal tone, Normal affect Lymphatics: No axilla or inguinal lymphadenopathy - Studies Medications List Reviewed: Yes Assessment & Plan - Problems (Diagnosis) (1) Cirrhosis of liver Current Visit: Yes Status: Acute Qualifiers: Hepatic cirrhosis type: unspecified hepatic cirrhosis Ascites presence: ascites Qualified Code(s): K74.60 - Unspecified cirrhosis of liver; R18.8 - Other ascites (2) Chronic kidney disease Current Visit: Yes Status: Acute (3) Generalized weakness Current Visit: Yes Status: Acute - Advance Directives Does patient have a Living Will: No Does patient have a Durable POA for Healthcare: No
[2020-12-26] MEDS ORDERED: ALBUMIN HUMAN 25% 100 ML IV ONE (17:56)
--- NOTE | 2020-12-26 19:25 | P.PN ---
Date of Service: 12/26/20 Vital Signs Temp Pulse Resp BP Pulse Ox 97.8 F 103 H 17 114/83 97 12/26/20 17:29 12/26/20 18:00 12/26/20 18:00 12/26/20 18:00 12/26/20 18:00 Medications Acetaminophen (Acetaminophen 500 Mg Tab) 500 mg PO Q4HP PRN PRN Reason: TEMP > 101' F Hydrocodone Bitart/Acetaminophen (Hydrocodone/Apap 5/325 Mg Tab) 1 tab PO Q6H PRN PRN Reason: Pain scale 5-7 (Moderate) Last Admin: 12/21/20 07:59 Dose: 1 tab Documented by: Arformoterol Tartrate (Arformoterol Tartrate 15 Mcg/2 Ml Vial.Neb) 15 mcg NEB BIDRESP [facility] Last Admin: 12/26/20 08:25 Dose: 15 mcg Documented by: Atorvastatin Calcium (Atorvastatin 40 Mg Tab) 40 mg PO BEDTIME [facility] Last Admin: 12/25/20 20:18 Dose: 40 mg Documented by: Cholecalciferol (Vitamin D 5,000 Unit Cap) 5,000 unit PO DAILY [facility] Digoxin (Digoxin 0.25 Mg Tablet) 0.25 mg PO DAILY [facility] Folic Acid (Folic Acid 1 Mg Tablet) 1 mg PO DAILY [facility] Last Admin: 12/26/20 10:56 Dose: 1 mg Documented by: Furosemide (Furosemide 20 Mg/ 2ml Vial) 20 mg IV Q8H [facility] Last Admin: 12/26/20 12:00 Dose: Not Given Documented by: Hydromorphone HCl (Hydromorphone Hcl 0.5 Mg/0.5 Ml Inj) 0.5 mg IV Q6H PRN PRN Reason: Pain scale 5-7 (Moderate) Last Admin: 12/26/20 15:39 Dose: 0.5 mg Documented by: Sodium Chloride (Sodium Chloride) 250 mls @ 0 mls/hr IV .Q0M [facility] Last Admin: 12/23/20 17:26 Dose: 250 mls Documented by: Norepinephrine Bitartrate 4 mg (/ Dextrose) 250 mls @ 20 mls/hr IV PRN PRN; Protocol PRN Reason: HEMODYNAMIC PARAMETERS Last Admin: 12/22/20 23:34 Dose: 250 mls Documented by: Ceftriaxone Sodium 1,000 mg/ (Sodium Chloride) 50 mls @ 100 mls/hr IVPB DAILY [facility]; Protocol Last Admin: 12/26/20 10:57 Dose: 50 mls Documented by: Pantoprazole Sodium 80 mg/ (Sodium Chloride) 250 mls @ 25 mls/hr IV Q10H [facility]; Protocol Last Admin: 12/26/20 14:05 Dose: 250 mls Documented by: Octreotide Acetate 500 mcg/ (Sodium Chloride) 500 mls @ 50 mls/hr IV Q10H [facility] Ipratropium [place] (Ipratropium Brom 0.5mg/2.5ml) 0.5 mg NEB [id number] PRN PRN Reason: SHORTNESS OF BREATH Levothyroxine Sodium (Levothyroxine Sod 0.05 Mg Tablet) 0.05 mg PO DAILYAC [facility] Last Admin: 12/26/20 06:06 Dose: 0.05 mg Documented by: Lorazepam (Lorazepam 0.5 Mg Tablet) 0.5 mg PO BID PRN PRN Reason: ANXIETY Metoprolol Tartrate (Metoprolol Tar 25 Mg Tab) 25 mg PO BID 6AM 6PM [facility] Last Admin: 12/26/20 06:05 Dose: 25 mg Documented by: Ondansetron HCl (Ondansetron 4 Mg/2 Ml Vial) 4 mg IV Q6HP PRN PRN Reason: NAUSEA / VOMITING Last Admin: 12/20/20 16:09 Dose: 4 mg Documented by: Rifaximin (Rifaximin 550 Mg Tab) 550 mg PO BID [facility]; Protocol Last Admin: 12/26/20 11:26 Dose: 550 mg Documented by: Simethicone (Simethicone 80 Mg Tab) 80 mg PO BID [facility] Last Admin: 12/26/20 10:57 Dose: 80 mg Documented by: Sodium Chloride (Flush Normal Saline 10 Ml) 10 ml IV BID [facility] Last Admin: 12/26/20 09:00 Dose: 10 ml Documented by: Sodium Chloride (Sodium Chloride 0.9% 10ml Inj) 10 ml IV UD PRN PRN Reason: Diluant Sucralfate (Sucralfate 1gm/10ml Ucup) 1 gm FT QID [facility] Last Admin: 12/26/20 18:19 Dose: 1 gm Documented by: Thiamine HCl (Thiamine Hcl 100 Mg Tablet) 100 mg PO DAILY [facility] Last Admin: 12/26/20 10:56 Dose: 100 mg Documented by: Tramadol HCl (Tramadol Hcl 50 Mg Tab) 50 mg PO TID PRN PRN Reason: Pain scale 2-4 (Mild) Microbiology Results 12/20/20 10:25 Blood - Blood Aerobic Blood Culture - Final No growth in 5 days. 12/20/20 10:25 Blood - Blood Anaerobic Blood Culture - Final No growth in 5 days. Assessment/ Plan: Nephrology No dyspnea. CORONEL No chest pain Generalized weakness No acute events overnight Vitals, medications, blood work and imaging reviewed in the chart General: Oriented x3, Cooperative HEENT: Atraumatic Neck: Supple Respiratory: Diminished Cardiovascular: Regular rate/rhythm, Edema Gastrointestinal: Hypoactive, Distended Musculoskeletal: No clubbing, No contractures Integumentary: No rashes, No cyanosis Neurological: Normal speech Greater than 30min patient care. Laboratory Data (last 24 hrs) 12/20/20 09:48: PT 15.4 H, INR 1.34 12/20/20 09:48: WBC 5.40, Hgb 8.4 L, Hct 25.1 L, Plt Count 159 12/20/20 09:48: Sodium 128 L, Potassium 4.7, BUN 23 H, Creatinine 1.53 H, Glucose 85, Magnesium 2.0, Total Bilirubin 1.6 H, AST 77 H, ALT 35, Alkaline Phosphatase 65 Imagings Data: EXAM DESCRIPTION: RAD - Chest Single View - 12/21/2020 5:59 am CLINICAL HISTORY: Follow up CHF COMPARISON: Chest Single View dated 12/20/2020; Chest Abd Pelvis Wo Con dated 12/20/2020 FINDINGS: Lines: None. Lungs: Mild increased opacity the left lung base. The lung volumes are slightly less as well. Pleural: Difficult to exclude a small left pleural effusion. Cardiac: Cardiomegaly. Bones: No acute fractures. Other: IMPRESSION: Mild increased left basilar opacities likely representing atelectasis. No definite edema identified . EXAM DESCRIPTION: CT - Chest Abd Pelvis Wo Con - 12/20/2020 12:56 pm CLINICAL HISTORY: ABDOMINAL DISTENTION, chest pain COMPARISON: No comparisons TECHNIQUE: Axial 5 millimeter thick images of the chest, abdomen and pelvis were obtained without IV contrast. Oral contrast was administered. All CT scans are performed using dose optimization technique as appropriate and may include automated exposure control or mA/KV adjustment according to patient size. FINDINGS: Fibrotic stranding and atelectasis changes are present in the lung bases. An 11 millimeter nodular focus abuts the right diaphragmatic pleura. No clearly malignant mass seen in the chest. There is an 8 centimeter thin-walled fluid collection in the medial right chest along the pleural margin. This extends from the hilum to the diaphragm. There is atelectasis along the lateral margin. Lateral left gutter atelectasis changes are present. Lateral lung base pneumonia is not excluded but lesser in likelihood. There is a trace amount of left pleural effusion. No pneumothorax. No pleural based mass. No chest wall mass or abnormal axillary lymphadenopathy seen. Mediastinal and hilar regions show no mass or lymphadenopathy. No significant cardiac finding. Liver is small with the left lobe prominent relative to the right. There is a pronounced nodularity of the liver capsule. A few parenchymal calcifications are present. This is an advanced cirrhotic liver pattern. No focal liver lesions seen though noncontrast imaging is diminished in sensitivity for lesion detection. No biliary tree dilatation. Gallbladder is difficult to distinguish from the ascites. Dilatation of the gallbladder is not suspected. Numerous calcifications present in a normal size spleen. No focal splenic lesion on noncontrast imaging imaging . Pancreas is poorly visualized. Primary pancreatic process is not suspected. No hydronephrosis or suspicious renal mass. Isodense masses and pyelonephritis cannot be excluded on non contrast imaging. No adrenal abnormalities. Urinary bladder is fully contracted around a Suárez catheter. No dilated bowel loops or focal ball bowel wall thickening. No free air or pneumatosis. Colonic diverticulosis is present. Much of the bowel is isodense to the ascites. Posterior distal rectal wall near the anus is poorly visualized. The oblique imaging angle through the distal rectum accentuates wall thickness. Patient has a very large volume of ascites filling the peritoneal cavity. No omental thickening seen. Fluid retention is present in the subcutaneous fatty tissues. No mass or bulky lymphadenopathy. Disc and bone degenerative changes are present not unremarkable for patient age. Dense arterial tree calcifications are present. IMPRESSION: Large volume of ascites present with advanced cirrhotic changes in the liver. No focal liver lesions seen though sensitivity is limited in the absence of IV contrast. No bowel obstruction, free air or emergent CT chest, abdomen or pelvis finding. Additional nonacute findings detailed in the body of the report. CT abdomen and pelvis imaging shows no significant or suspicious finding. EXAM DESCRIPTION: US - Extrem Venous W Compress Deepak - 12/20/2020 12:22 pm CLINICAL HISTORY: SWELLING Bilateral leg edema and swelling. COMPARISON: Lower Extremity Arterial Bilat dated 09/17/2017 TECHNIQUE: Real-time sonographic interrogation of the left and right lower extremity deep venous systems was performed. FINDINGS: Normal compressibility, flow augmentation, phasic flow and spontaneous flow is identified in both the left and right lower extremity deep venous systems. 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 IMPRESSION: No sonographic evidence of left or right lower extremity deep venous thrombosis. Conclusions/Impression: ADILENE in the setting of hypotension & anasarca CKD III with proteinuria -Lasix 20mg IV q8h as tolerated Hyponatremia -Continue Lasix IV Hyperkalemia/ Hypokalemia -Continue Lasix -Replete potassium per protocol Hypotension -IV Albumin prn -Vasopressor therapy as needed Diastolic CHF, A/C Anasarca -Continue Lasix -Low sodium diet Severe malnutrition Hypoalbuminemia -Give IV Albumin prn -Recommend protein supplementation Anemia in chronic illness -Transfuse PRBC as needed -Retacrit prn Liver cirrhosis with ascites & varices HCV -Monitor LFT -GI following. Continue Octreotide End of life issues reviewed with the patient and his . Dispostition including hospice reviewed with the patient and his .
[2020-12-26] MEDS: ATORVASTATIN 40 MG TAB PO SCH (20:34)
[2020-12-26] MEDS ORDERED: OCTREOTIDE 500 MCG in NA CHLORIDE 0.9% 500 ML IV SCH (22:30)
[2020-12-27] MEDS: PANTOPRAZOLE INJ 80 MG in NA CHLORIDE 0.9% 250 ML IV SCH ×2 (02:11→10:00)
[2020-12-27] MEDS ORDERED: FUROSEMIDE 20 MG/ 2ML VIAL ONE (03:46)
[2020-12-27] MEDS: FUROSEMIDE 20 MG/ 2ML VIAL IV SCH ×2 (03:59→12:00)
[2020-12-27] MEDS ORDERED: HYDROMORPHONE HCL 0.5 MG/0.5 ML INJ ONE ×2 (04:16→08:51)
[2020-12-27] MEDS: HYDROMORPHONE HCL 0.5 MG/0.5 ML INJ IV PRN ×2 (04:19→09:24)
[2020-12-27 04:27] LABS: Absolute Lymphocytes (CBC) 0.7 K/uL (0.7-4.9); Basophils % 0.7 % (0-1.3); Hematocrit 26.9 % (39.6-49.0); Lymphocytes % 14.3 % (15.3-44.8); MPV 8.4 fL (7.6-11.3); RBC Red Blood Cell Count 2.84 M/uL (4.33-5.43)
[2020-12-27 05:16] LABS: Albumin 2.5 g/dL (3.4-5.0); Magnesium 1.8 mg/dL (1.8-2.4); Protein, Total 6.1 g/dL (6.4-8.2)
[2020-12-27] MEDS ORDERED: KCL 20 MEQ/100 mL IVPB 20 MEQ/100 ML BAG IV ONE ×2 (05:40→08:45)
[2020-12-27] MEDS ORDERED: METOPROLOL TAR 25 MG TAB ONE (05:40)
[2020-12-27] MEDS: METOPROLOL TAR 25 MG TAB PO SCH (05:44)
[2020-12-27] MEDS: KCL 20 MEQ/100 mL IVPB 20 MEQ/100 ML BAG IV SCH ×2 (05:44→09:02)
--- NOTE | 2020-12-27 07:08 | ECHO ---
HEIGHT: 5 ft 7 in WEIGHT: 169 lb 0 oz DATE OF STUDY: 12/26/[address]: Shreyas Mccann DO 2-DIMENSIONAL: YES M.MODE: YES DOPPLER: YES COLOR FLOW: YES TDS: PORTABLE: DEFINITY: BUBBLE STUDY: DIAGNOSIS: ATIRAL FIBRILLATION/ CONGESTIVE HEART FAILURE CARDIAC HISTORY: CATHERIZATION: SURGERY: PROSTHETIC VALVE: PACEMAKER: MEASUREMENTS (cm) DIASTOLIC (NORMALS) SYSTOLIC (NORMALS) IVSd 0.8 (0.6-1.2) LA Diam 4.2 (1.9-4.0) LVEF 66% LVIDd 4.0 (3.5-5.7) LVIDs 2.6 (2.0-3.5) %FS 36% LVPWd 0.9 (0.6-1.2) Ao Diam 3.1 (2.0-3.7) 2 DIMENSIONAL ASSESSMENT: RIGHT ATRIUM: NORMAL LEFT ATRIUM: ENLARGED RIGHT VENTRICLE: NORMAL LEFT VENTRICLE: NORMAL TRICUSPID VALVE: NORMAL MITRAL VALVE: MILD MITRAL REGURGITATION PULMONIC VALVE: NORMAL AORTIC VALVE: NORMAL PERICARDIAL EFFUSION: NONE AORTIC ROOT: NORMAL LEFT VENTRICULAR WALL MOTION: NORMAL DOPPLER/COLOR FLOW: MILD MITRAL REGURGITATION COMMENTS: NORMAL LEFT VENTRICULAR EJECTION FRACTION 55-60%. NORMAL WALL MOTION. MILD MITRAL REGURGITATION. LEFT ATRIAL ENLARGEMENT. ATRIAL FIBRILLATION. TECHNOLOGIST: WILLY CASTRO
[2020-12-27] MEDS ORDERED: LEVOTHYROXINE SOD 0.05 MG TABLET PO ONE (07:30)
[2020-12-27] MEDS ORDERED: ARFORMOTEROL TARTRATE 15 MCG/2 ML VIAL.NEB ONE (08:22)
[2020-12-27] MEDS: ARFORMOTEROL TARTRATE 15 MCG/2 ML VIAL.NEB NEB SCH (08:23)
[2020-12-27] MEDS ORDERED: SIMETHICONE 80 MG TAB ONE (08:44)
[2020-12-27] MEDS ORDERED: THIAMINE HCL 100 MG TABLET ONE (08:44)
[2020-12-27] MEDS ORDERED: VITAMIN D 1000 UNIT TAB ONE (08:44)
[2020-12-27] MEDS ORDERED: FOLIC ACID 1 MG TABLET ONE (08:44)
[2020-12-27] MEDS ORDERED: DIGOXIN 0.25 MG TABLET ONE (08:44)
[2020-12-27] MEDS ORDERED: SPIRONOLACTONE 25 MG TABLET ONE (08:51)
[2020-12-27] MEDS: FOLIC ACID 1 MG TABLET PO SCH (08:56)
[2020-12-27] MEDS: SIMETHICONE 80 MG TAB PO SCH (08:56)
[2020-12-27] MEDS: THIAMINE HCL 100 MG TABLET PO SCH (08:56)
[2020-12-27] MEDS: CEFTRIAXONE 1,000 MG in NA CHLORIDE 0.9% 50 ML IVPB SCH (08:56)
[2020-12-27] MEDS: SUCRALFATE 1GM/10ML UCUP FT SCH ×2 (08:59→13:00)
[2020-12-27] MEDS ORDERED: VITAMIN D 5,000 UNIT CAP PO SCH (09:00)
[2020-12-27] MEDS ORDERED: DIGOXIN 0.25 MG TABLET PO SCH (09:00)
[2020-12-27] MEDS ORDERED: SPIRONOLACTONE 25 MG TABLET PO SCH (09:00)
[2020-12-27] MEDS: Rifaximin 550 MG Tab PO SCH (09:04)
[2020-12-27 09:55] VITALS: O2SAT 98
[2020-12-27] MEDS ORDERED: PANTOPRAZOLE INJ 80 MG in NA CHLORIDE 0.9% 250 ML IV SCH (13:00)
[2020-12-27] MEDS ORDERED: OCTREOTIDE 500 MCG in NA CHLORIDE 0.9% 500 ML IV SCH (13:30)
[2020-12-27 13:59] VITALS: BP 121/94; TEMP 97.9
--- NOTE | 2020-12-27 17:52 | P.PN ---
Subjective Date of Service: 12/22/20 Primary Care Provider: Dr. Baker; Cardiology-Dr. Rodrigez Chief Complaint: Shortness of breath, anemia, cirrhosis, ascites, anasarca Subjective: Worsening (Hgb drop 7.6 to 6.3. Patient and RNs / staff deny any blood seen.) Physical Examination - Vital Signs Temperature: 97.9 F Blood Pressure: 121/94 Pulse: 116 Respirations: 15 Pulse Ox (%): 98 - Physical Exam General: Alert, In no apparent distress, Oriented x2, Disheveled HEENT: Atraumatic, Normocephalic, PERRLA, EOMI Neck: Supple Respiratory: Normal air movement Cardiovascular: Normal pulses Gastrointestinal: No rebound, No guarding, Distended Neurological: Normal speech - Studies Medications List Reviewed: Yes Assessment And Plan - Current Problems (Diagnosis) (1) Ascites Status: Acute (2) Anasarca Status: Acute (3) Congestive heart failure Status: Acute (4) Hepatitis C Status: Acute (5) Atrial fibrillation Status: Acute (6) Hypotension Status: Acute (7) Anemia Status: Acute (8) Cirrhosis of liver Status: Acute Qualifiers: Hepatic cirrhosis type: unspecified hepatic cirrhosis Ascites presence: with ascites Qualified Code(s): K74.60 - Unspecified cirrhosis of liver; R18.8 - Other ascites - Plan REC: 1) EGD in AM 2) PPI therapy Physician Review Additional Text: COVID: negative Chest x-ray: COMPARISON: No comparisons FINDINGS: Portable technique limits examination quality. Mild interstitial pulmonary edema is seen. Linear opacities in the left lung base laterally probably represent atelectasis. The heart is prominent in size. A large hiatal hernia is likely present appear No displaced fractures. Venous doppler: COMPARISON: Lower Extremity Arterial Bilat dated 09/17/2017 TECHNIQUE: Real-time sonographic interrogation of the left and right lower extremity deep venous systems was performed. FINDINGS: Normal compressibility, flow augmentation, phasic flow and spontaneous flow is identified in both the left and right lower extremity deep venous systems. 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 IMPRESSION: No sonographic evidence of left or right lower extremity deep venous thrombosis. CT head: COMPARISON: Chest Abd Pelvis Wo Con dated 12/20/2020 TECHNIQUE: Axial 5 mm thick images of the head were obtained without IV contrast. All CT scans are performed using dose optimization technique as appropriate and may include automated exposure control or mA/KV adjustment according to patient size. FINDINGS: No intracranial hemorrhage, mass, edema or shift of mid-line structures. No acute cortical based infarction identified. No cortical edema or sulcal effacement. Diminished attenuation the left external capsule and insular cortex region is most likely remote. There are scattered chronic ischemic changes in the cerebral white matter. No abnormal extra-axial fluid collections. Mild to moderate for age atrophy changes are present. Ventricles are in proportion to the volume loss. Patient has dense arterial tree calcifications. Mastoid air cells and visualized portions of the paranasal sinuses are clear. No acute bony findings. IMPRESSION: No intracranial hemorrhage, mass or emergent intracranial CT finding. Atrophy and chronic ischemic changes are present with focal ischemic changes in the left external capsule and insular cortex region. Chronic ischemic changes can mask nonhemorrhagic acute infarction. MR brain followup can be obtained if there is ongoing concern for acute ischemia. CT chest/abdomen and pelvis: COMPARISON: No comparisons TECHNIQUE: Axial 5 millimeter thick images of the chest, abdomen and pelvis were obtained without IV contrast. Oral contrast was administered. All CT scans are performed using dose optimization technique as appropriate and may include automated exposure control or mA/KV adjustment according to patient size. FINDINGS: Fibrotic stranding and atelectasis changes are present in the lung bases. An 11 millimeter nodular focus abuts the right diaphragmatic pleura. No clearly malignant mass seen in the chest. There is an 8 centimeter thin-walled fluid collection in the medial right chest along the pleural margin. This extends from the hilum to the diaphragm. There is atelectasis along the lateral margin. Lateral left gutter atelectasis changes are present. Lateral lung base pneumonia is not excluded but lesser in likelihood. There is a trace amount of left pleural effusion. No pneumothorax. No pleural based mass. No chest wall mass or abnormal axillary lymphadenopathy seen. Mediastinal and hilar regions show no mass or lymphadenopathy. No significant cardiac finding. Liver is small with the left lobe prominent relative to the right. There is a pronounced nodularity of the liver capsule. A few parenchymal calcifications are present. This is an advanced cirrhotic liver pattern. No focal liver lesions seen though noncontrast imaging is diminished in sensitivity for lesion detection. No biliary tree dilatation. Gallbladder is difficult to distinguish from the ascites. Dilatation of the gallbladder is not suspected. Numerous calcifications present in a normal size spleen. No focal splenic lesion on noncontrast imaging imaging . Pancreas is poorly visualized. Primary pancreatic process is not suspected. No hydronephrosis or suspicious renal mass. Isodense masses and pyelonephritis cannot be excluded on non contrast imaging. No adrenal abnormalities. Urinary bladder is fully contracted around a Suárez catheter. No dilated bowel loops or focal ball bowel wall thickening. No free air or pneumatosis. Colonic diverticulosis is present. Much of the bowel is isodense to the ascites. Posterior distal rectal wall near the anus is poorly visualized. The oblique imaging angle through the distal rectum accentuates wall thickness. Patient has a very large volume of ascites filling the peritoneal cavity. No omental thickening seen. Fluid retention is present in the subcutaneous fatty tissues. No mass or bulky lymphadenopathy. Disc and bone degenerative changes are present not unremarkable for patient age. Dense arterial tree calcifications are present. IMPRESSION: Large volume of ascites present with advanced cirrhotic changes in the liver. No focal liver lesions seen though sensitivity is limited in the absence of IV contrast. No bowel obstruction, free air or emergent CT chest, abdomen or pelvis finding. Additional nonacute findings detailed in the body of the report. CT abdomen and pelvis imaging shows no significant or suspicious finding. Paracentesis: COMPARISON: No comparisons FINDINGS: Informed consent was obtained and time-out was performed. Patient's abdomen was prepped and draped in the usual sterile fashion. 1% lidocaine was used for local anesthetic purposes. A small skin incision was made. A paracentesis catheter was guided into the peroneal cavity under sonographic guidance. A small amount of fluid was sent for requested lab studies. A large volume paracentesis was performed. The patient tolerated the procedure well. Patient was administered IV albumin per protocol following the procedure. IMPRESSION: Successful ultrasound-guided paracentesis. EGD: Findings: 1. LA class D esophagitis in the lower esophagus 2. 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 Large amount of dark heme fluid/blacks blood/clots in the body of the stomach, partially suctioned out with endoscopy Physical Exam: GENERAL: Patient appears older than his stated age. Patient alert and cooperative. Currently on nasal cannula. VITAL SIGNS: Reviewed. Blood pressure stable at this time. Now off Levophed. HEENT: neck supple. Dry mouth LUNGS: Better air movement bilateral. Currently on 2 L per nasal cannula HEART: Atrial fibrillation rate around 100-120 ABDOMEN: Patient with ascites EXTREMITIES: Edema to the lower extremities improved NEUROLOGIC: Patient alert, cooperative. No focal deficits. No slurred speech. SKIN: As above. Significant edema to the lower extremity. Impression: Dyspnea secondary to acute on chronic CHF likely diastolic versus systolic complicated with anasarca, atrial fibrillation with RVR on chronic anticoagulation therapy, and Hypotension related to volume depletion and GI bleed Hepatitis C with suspected cirrhosis complicated with significant anasarca and lower extremity edema Acute on chronic renal disease stage III with hyponatremia Acute anemia with chronic disease with possible GI bleed Hypertension Hyperlipidemia CAD with prior stent Hypothyroidism Anxiety Slurred speech Peripheral vascular disease with history of bypass Noncompliance with follow-up and medication Plan: Dyspnea secondary to acute on chronic CHF likely diastolic versus systolic complicated with anasarca, atrial fibrillation with RVR on chronic anticoagulation therapy, and Hypotension related to volume depletion and GI bleedLA class D esophagitis/grade 2-3 varices with banding: Patient overall improved. Hemoglobin stable at 9.0. Patient has received 3 units of blood. EGD done on Saturday showed severe esophagitis with grade 2-3 varices. Banding was done. Patient remains on clear liquid diet. Patient also on Protonix drip, octreotide drip and Rocephin. Will discuss with GI about advancing his diet. Patient remains off IV Levophed. Patient with atrial fibrillation with rate around 100-120. Will increase metoprolol to 25 mg 1 pill twice daily for better rate control. Patient also on digoxin 125 mcg daily. Nephrology continues with diuresis. Patient on Lasix 20 mg IV 3 times a day. Continue to discuss with GI, cardiology and nephrology. Spoke at length with the patient and concerning plan of care. Patient wants to make decisions. wants patient to continue with full CODE STATUS. If his condition were to significantly decline or if he was on life support, he would not want to be on life support for a long period of time. Also discussed the possibility of long- term acute facility placement and skilled placement as the patient will likely require this prior to going home. Patient prefers to go home but he needs to understand that his condition is chronic with poor quality. I would highly recommend skilled placement or long-term acute care facility before he goes home. Social work to help in this process. Anticipate long-term acute care facility. Social work to discuss further with as she is making decisions for him. I will turn the service over to the hospitalist team tomorrow. I will go over plan of care with him. Hepatitis C with suspected cirrhosis complicated with significant anasarca and lower extremity edema: Patient is status post paracentesis with 2 L removed last week. So far cultures negative. Continue with above plan of care. Continue with GI recommendations. Acute on chronic renal disease stage III with hyponatremia: Renal function and hyponatremia improved. Continue IV diuretic therapy. Currently on Lasix 20 mg 3 times a day IV. 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 Hemoglobin stable. Continue to maintain hemoglobin above 7.5. GI recommends to hold Eliquis. Patient remains on Protonix drip, octreotide drip, and Rocephin IV. Will discuss with GI about advancing his diet Hypertension: Increase metoprolol to 25 mg 1 pill twice daily for better rate control. Patient off Levophed. CAD with prior stent: Continue with metoprolol. Hypothyroidism: Continue levothyroxine 50 mcg daily. Patient with poor compliance Anxiety: Continue with medication as needed. Slurred speech: Resolved. CT scan shows no evidence of stroke, patient is at risk for stroke. Continue with above plan of care. Peripheral vascular disease with history of bypass: Continue to hold Eliquis Noncompliance with follow-up and medication: Compliance with medication and follow-up addressed in detail. Will make sure patient is able to afford all his medications. Will need to make sure patient has close follow-up at discharge. Code Status: Full Code DVT prophylaxis: SCD. Continue to hold Eliquis and anticoagulation therapy due to EGD finding Advanced Care Planning-30 minutes: Discussed at length with plan of care. Will recommend long-term acute care facility versus skilled placement. Patient is wanting to make decisions. seems to be agreeable to long-term acute care facility. Social work to continue to help with this process.
--- NOTE | 2020-12-27 17:56 | P.PN ---
Subjective Date of Service: 12/24/20 Primary Care Provider: Dr. Baker; Cardiology-Dr. Rodrigez Chief Complaint: Shortness of breath, anemia, cirrhosis, ascites, anasarca Subjective: Improving (S/p EGD yesterday with severe erosive esophagitis > esophageal varices (difficult to place bands, 4/7 accomplished) with old blood / clots in stomach. Now on PPI IV, IV Octreotide, IV Ceftriaxone. Hgb increasing without transfusion.) Review of Systems Unremarkable General: Weakness, Malaise (Improving) Physical Examination - Vital Signs Temperature: 97.9 F Blood Pressure: 121/94 Pulse: 116 Respirations: 15 Pulse Ox (%): 98 - Physical Exam General: Alert, In no apparent distress, Oriented x3 HEENT: Atraumatic, Normocephalic, PERRLA, EOMI Respiratory: Normal air movement Cardiovascular: Normal pulses Gastrointestinal: Distended (tympany in upper abdomen) Neurological: Normal speech - Studies Medications List Reviewed: Yes Assessment And Plan - Current Problems (Diagnosis) (1) Ascites Status: Acute (2) Anasarca Status: Acute (3) Congestive heart failure Status: Acute (4) Hepatitis C Status: Acute (5) Atrial fibrillation Status: Acute (6) Hypotension Status: Acute (7) Anemia Status: Acute (8) Cirrhosis of liver Status: Acute Qualifiers: Hepatic cirrhosis type: unspecified hepatic cirrhosis Ascites presence: with ascites Qualified Code(s): K74.60 - Unspecified cirrhosis of liver; R18.8 - Other ascites - Plan REC: 1) continue PPI, Octreotide, Ceftriaxone 2) CLs to [place] Physician Review Additional Text: COVID: negative Chest x-ray: COMPARISON: No comparisons FINDINGS: Portable technique limits examination quality. Mild interstitial pulmonary edema is seen. Linear opacities in the left lung base laterally probably represent atelectasis. The heart is prominent in size. A large hiatal hernia is likely present appear No displaced fractures. Venous doppler: COMPARISON: Lower Extremity Arterial Bilat dated 09/17/2017 TECHNIQUE: Real-time sonographic interrogation of the left and right lower extremity deep venous systems was performed. FINDINGS: Normal compressibility, flow augmentation, phasic flow and spontaneous flow is identified in both the left and right lower extremity deep venous systems. 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 IMPRESSION: No sonographic evidence of left or right lower extremity deep venous thrombosis. CT head: COMPARISON: Chest Abd Pelvis Wo Con dated 12/20/2020 TECHNIQUE: Axial 5 mm thick images of the head were obtained without IV contrast. All CT scans are performed using dose optimization technique as appropriate and may include automated exposure control or mA/KV adjustment according to patient size. FINDINGS: No intracranial hemorrhage, mass, edema or shift of mid-line str uctures. No acute cortical based infarction identified. No cortical edema or sulcal effacement. Diminished attenuation the left external capsule and insular cortex region is most likely remote. There are scattered chronic ischemic changes in the cerebral white matter. No abnormal extra-axial fluid collections. Mild to moderate for age atrophy changes are present. Ventricles are in proportion to the volume loss. Patient has dense arterial tree calcifications. Mastoid air cells and visualized portions of the paranasal sinuses are clear. No acute bony findings. IMPRESSION: No intracranial hemorrhage, mass or emergent intracranial CT finding. Atrophy and chronic ischemic changes are present with focal ischemic changes in the left external capsule and insular cortex region. Chronic ischemic changes can mask nonhemorrhagic acute infarction. MR brain followup can be obtained if there is ongoing concern for acute ischemia. CT chest/abdomen and pelvis: COMPARISON: No comparisons TECHNIQUE: Axial 5 millimeter thick images of the chest, abdomen and pelvis were obtained without IV contrast. Oral contrast was administered. All CT scans are performed using dose optimization technique as appropriate and may include automated exposure control or mA/KV adjustment according to patient size. FINDINGS: Fibrotic stranding and atelectasis changes are present in the lung bases. An 11 millimeter nodular focus abuts the right diaphragmatic pleura. No clearly malignant mass seen in the chest. There is an 8 centimeter thin-walled fluid collection in the medial right chest along the pleural margin. This extends from the hilum to the diaphragm. There is atelectasis along the lateral margin. Lateral left gutter atelectasis changes are present. Lateral lung base p neumonia is not excluded but lesser in likelihood. There is a trace amount of left pleural effusion. No pneumothorax. No pleural based mass. No chest wall mass or abnormal axillary lymphadenopathy seen. Mediastinal and hilar regions show no mass or lymphadenopathy. No significant cardiac finding. Liver is small with the left lobe prominent relative to the right. There is a pronounced nodularity of the liver capsule. A few parenchymal calcifications are present. This is an advanced cirrhotic liver pattern. No focal liver lesions seen though noncontrast imaging is diminished in sensitivity for lesion detection. No biliary tree dilatation. Gallbladder is difficult to distinguish from the ascites. Dilatation of the gallbladder is not suspected. Numerous calcifications present in a normal size spleen. No focal splenic lesion on noncontrast imaging imaging . Pancreas is poorly visualized. Primary pancreatic process is not suspected. No hydronephrosis or suspicious renal mass. Isodense masses and pyelonephritis cannot be excluded on non contrast imaging. No adrenal abnormalities. Urinary bladder is fully contracted around a Suárez catheter. No dilated bowel loops or focal ball bowel wall thickening. No free air or pneumatosis. Colonic diverticulosis is present. Much of the bowel is isodense to the ascites. Posterior distal rectal wall near the anus is poorly visualized. The oblique imaging angle through the distal rectum accentuates wall thickness. Patient has a very large volume of ascites filling the peritoneal cavity. No omental thickening seen. Fluid retention is present in the subcutaneous fatty tissues. No mass or bulky lymphadenopathy. Disc and bone degenerative changes are present not unremarkable for patient age. Dense arterial tree calcifications are present. IMPRESSION: Large volume of ascites present with advanced cirrhotic changes in the liver. No focal liver lesions seen though sensitivity is limited in the absence of IV contrast. No bowel obstruction, free air or emergent CT chest, abdomen or pelvis finding. Additional nonacute findings detailed in the body of the report. CT abdomen and pelvis imaging shows no significant or suspicious finding. Paracentesis: COMPARISON: No comparisons FINDINGS: Informed consent was obtained and time-out was performed. Patient's abdomen was prepped and draped in the usual sterile fashion. 1% lidocaine was used for local anesthetic purposes. A small skin incision was made. A paracentesis catheter was guided into the peroneal cavity under sonographic guidance. A small amount of fluid was sent for requested lab studies. A large volume paracentesis was performed. The patient tolerated the procedure well. Patient was administered IV albumin per protocol following the procedure. IMPRESSION: Successful ultrasound-guided paracentesis. EGD: Findings: 1. LA class D esophagitis in the lower esophagus 2. 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 Large amount of dark heme fluid/blacks blood/clots in the body of the stomach, partially suctioned out with endoscopy Physical Exam: GENERAL: Patient appears older than his stated age. Patient alert and cooperative. Currently on nasal cannula. VITAL SIGNS: Reviewed. Blood pressure stable at this time. Now off Levophed. HEENT: neck supple. Dry mouth LUNGS: Better air movement bilateral. Currently on 2 L per nasal cannula HEART: Atrial fibrillation rate around 100-120 ABDOMEN: Patient with ascites EXTREMITIES: Edema to the lower extremities improved NEUROLOGIC: Patient alert, cooperative. No focal deficits. No slurred speech. SKIN: As above. Significant edema to the lower extremity. Impression: Dyspnea secondary to acute on chronic CHF likely diastolic versus systolic complicated with anasarca, atrial fibrillation with RVR on chronic anticoagulation therapy, and Hypotension related to volume depletion and GI bleed Hepatitis C with suspected cirrhosis complicated with significant anasarca and lower extremity edema Acute on chronic renal disease stage III with hyponatremia Acute anemia with chronic disease with possible GI bleed Hypertension Hyperlipidemia CAD with prior stent Hypothyroidism Anxiety Slurred speech Peripheral vascular disease with history of bypass Noncompliance with follow-up and medication Plan: Dyspnea secondary to acute on chronic CHF likely diastolic versus systolic complicated with anasarca, atrial fibrillation with RVR on chronic anticoagulation therapy, and Hypotension related to volume depletion and GI bleedLA class D esophagitis/grade 2-3 varices with banding: Patient overall improved. Hemoglobin stable at 9.0. Patient has received 3 units of blood. EGD done on Saturday showed severe esophagitis with grade 2-3 varices. Banding was done. Patient remains on clear liquid diet. Patient also on Protonix drip, octreotide drip and Rocephin. Will discuss with GI about advancing his diet. Patient remains off IV Levophed. Patient with atrial fibrillation with rate around 100-120. Will increase metoprolol to 25 mg 1 pill twice daily for better rate control. Patient also on digoxin 125 mcg daily. Nephrology continues with diuresis. Patient on Lasix 20 mg IV 3 times a day. Continue to discuss with GI, cardiology and nephrology. Spoke at length with the patient and concerning plan of care. Patient wants to make decisions. wants patient to continue with full CODE STATUS. If his condition were to significantly decline or if he was on life support, he would not want to be on life support for a long period of time. Also discussed the possibility of long- term acute facility placement and skilled placement as the patient will likely require this prior to going home. Patient prefers to go home but he needs to understand that his condition is chronic with poor quality. I would highly recommend skilled placement or long-term acute care facility before he goes home. Social work to help in this process. Anticipate long-term acute care facility. Social work to discuss further with as she is making decisions for him. I will turn the service over to the hospitalist team tomorrow. I will go over plan of care with him. Hepatitis C with suspected cirrhosis complicated with significant anasarca and lower extremity edema: Patient is status post paracentesis with 2 L removed last week. So far cultures negative. Continue with above plan of care. Continue with GI recommendations. Acute on chronic renal disease stage III with hyponatremia: Renal function and hyponatremia improved. Continue IV diuretic therapy. Currently on Lasix 20 mg 3 times a day IV. 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 Hemoglobin stable. Continue to maintain hemoglobin above 7.5. GI recommends to hold Eliquis. Patient remains on Protonix drip, octreotide drip, and Rocephin IV. Will discuss with GI about advancing his diet Hypertension: Increase metoprolol to 25 mg 1 pill twice daily for better rate control. Patient off Levophed. CAD with prior stent: Continue with metoprolol. Hypothyroidism: Continue levothyroxine 50 mcg daily. Patient with poor compliance Anxiety: Continue with medication as needed. Slurred speech: Resolved. CT scan shows no evidence of stroke, patient is at risk for stroke. Continue with above plan of care. Peripheral vascular disease with history of bypass: Continue to hold Eliquis Noncompliance with follow-up and medication: Compliance with medication and follow-up addressed in detail. Will make sure patient is able to afford all his medications. Will need to make sure patient has close follow-up at discharge. Code Status: Full Code DVT prophylaxis: SCD. Continue to hold Eliquis and anticoagulation therapy due to EGD finding Advanced Care Planning-30 minutes: Discussed at length with plan of care. Will recommend long-term acute care facility versus skilled placement. Patient is wanting to make decisions. seems to be agreeable to long-term acute care facility. Social work to continue to help with this process.
--- NOTE | 2020-12-27 18:01 | P.PN ---
Subjective Date of Service: 12/26/20 Primary Care Provider: Dr. Baker; Cardiology-Dr. Rodrigez Chief Complaint: Shortness of breath, anemia, cirrhosis, ascites, anasarca Subjective: Improving (Hgb continues to improve without transfusion. Tolerating FL diet. No stools in days. On IV Lasix.) Review of Systems General: Weakness, Malaise (Improving slowly ) Physical Examination - Vital Signs Temperature: 97.9 F Blood Pressure: 121/94 Pulse: 116 Respirations: 15 Pulse Ox (%): 98 - Physical Exam General: Alert, In no apparent distress, Oriented x3, Disheveled HEENT: Atraumatic, Normocephalic, PERRLA, EOMI Neck: Supple Cardiovascular: Irregular heart rate/rhythm Gastrointestinal: Distended (tympany) Neurological: Normal speech - Studies Medications List Reviewed: Yes Assessment And Plan - Current Problems (Diagnosis) (1) Ascites Status: Acute (2) Anasarca Status: Acute (3) Congestive heart failure Status: Acute (4) Hepatitis C Status: Acute (5) Atrial fibrillation Status: Acute (6) Hypotension Status: Acute (7) Anemia Status: Acute (8) Cirrhosis of liver Status: Acute Qualifiers: Hepatic cirrhosis type: unspecified hepatic cirrhosis Ascites presence: with ascites Qualified Code(s): K74.60 - Unspecified cirrhosis of liver; R18.8 - Other ascites - Plan REC: 1) continue PPI, Octreotide, Ceftriaxone 2) FLs to GI soft / renal diet slowly 3) Gas-X / Simethicone bid 4) Wean IV Octreotide from 40 to 30 mcg/hour Physician Review Additional Text: COVID: negative Chest x-ray: COMPARISON: No comparisons FINDINGS: Portable technique limits examination quality. Mild interstitial pulmonary edema is seen. Linear opacities in the left lung base laterally probably represent atelectasis. The heart is prominent in size. A large hiatal hernia is likely present appear No displaced fractures. Venous doppler: COMPARISON: Lower Extremity Arterial Bilat dated 09/17/2017 TECHNIQUE: Real-time sonographic interrogation of the left and right lower extremity deep venous systems was performed. FINDINGS: Normal compressibility, flow augmentation, phasic flow and spontaneous flow is identified in both the left and right lower extremity deep venous systems. 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 IMPRESSION: No sonographic evidence of left or right lower extremity deep venous thrombosis. CT head: COMPARISON: Chest Abd Pelvis Wo Con dated 12/20/2020 TECHNIQUE: Axial 5 mm thick images of the head were obtained without IV contrast. All CT scans are performed using dose optimization technique as appropriate and may include automated exposure control or mA/KV adjustment according to patient size. FINDINGS: No intracranial hemorrhage, mass, edema or shift of mid-line structures. No acute cortical based infarction identified. No cortical edema or sulcal effacement. Diminished attenuation the left external capsule and insular cortex region is most likely remote. There are scattered chronic ischemic changes in the cerebral white matter. No abnormal extra-axial fluid collections. Mild to moderate for age atrophy changes are present. Ventricles are in proportion to the volume loss. Patient has dense arterial tree calcifications. Mastoid air cells and visualized portions of the paranasal sinuses are clear. No acute bony findings. IMPRESSION: No intracranial hemorrhage, mass or emergent intracranial CT finding. Atrophy and chronic ischemic changes are present with focal ischemic changes in the left external capsule and insular cortex region. Chronic ischemic changes can mask nonhemorrhagic acute infarction. MR brain fo llowup can be obtained if there is ongoing concern for acute ischemia. CT chest/abdomen and pelvis: COMPARISON: No comparisons TECHNIQUE: Axial 5 millimeter thick images of the chest, abdomen and pelvis were obtained without IV contrast. Oral contrast was administered. All CT scans are performed using dose optimization technique as appropriate and may include automated exposure control or mA/KV adjustment according to patient size. FINDINGS: Fibrotic stranding and atelectasis changes are present in the lung bases. An 11 millimeter nodular focus abuts the right diaphragmatic pleura. No clearly malignant mass seen in the chest. There is an 8 centimeter thin-walled fluid collection in the medial right chest along the pleural margin. This extends from the hilum to the diaphragm. There is atelectasis along the lateral margin. Lateral left gutter atelectasis changes are present. Lateral lung base pneumonia is not excluded but lesser in likelihood. There is a trace amount of left pleural effusion. No pneumothorax. No pleural based mass. No chest wall mass or abnormal axillary lymphadenopathy seen. Mediastinal and hilar regions show no mass or lymphadenopathy. No significant cardiac finding. Liver is small with the left lobe prominent relative to the right. There is a pronounced nodularity of the liver capsule. A few parenchymal calcifications are present. This is an advanced cirrhotic liver pattern. No focal liver lesions seen though noncontrast imaging is diminished in sensitivity for lesion detection. No biliary tree dilatation. Gallbladder is difficult to distinguish from the ascites. Dilatation of the gallbladder is not suspected. Numerous calcifications present in a normal size spleen. No focal splenic lesion on noncontrast imaging imaging . Pancreas is poorly visualized. Primary pancreatic process is not suspected. No hydronephrosis or suspicious renal mass. Isodense masses and pyelonephritis cannot be excluded on non contrast imaging. No adrenal abnormalities. Urinary bladder is fully contracted around a Suárez catheter. No dilated bowel loops or focal ball bowel wall thickening. No free air or pneumatosis. Colonic diverticulosis is present. Much of the bowel is isodense to the ascites. Posterior distal rectal wall near the anus is poorly visualized. The oblique imaging angle through the distal rectum accentuates wall thickness. Patient has a very large volume of ascites filling the peritoneal cavity. No omental thickening seen. Fluid retention is present in the subcutaneous fatty tissues. No mass or bulky lymphadenopathy. Disc and bone degenerative changes are present not unremarkable for patient age. Dense arterial tree calcifications are present. IMPRESSION: Large volume of ascites present with advanced cirrhotic changes in the liver. No focal liver lesions seen though sensitivity is limited in the absence of IV contrast. No bowel obstruction, free air or emergent CT chest, abdomen or pelvis finding. Additional nonacute findings detailed in the body of the report. CT abdomen and pelvis imaging shows no significant or suspicious finding. Paracentesis: COMPARISON: No comparisons FINDINGS: Informed consent was obtained and time-out was performed. Patient's abdomen was prepped and draped in the usual sterile fashion. 1% lidocaine was used for local anesthetic purposes. A small skin incision was made. A paracentesis catheter was guided into the peroneal cavity under sonographic guidance. A small amount of fluid was sent for requested lab studies. A large volume paracentesis was performed. The patient tolerated the procedure well. Patient was administered IV albumin per protocol following the procedure. IMPRESSION: Successful ultrasound-guided paracentesis. EGD: Findings: 1. LA class D esophagitis in the lower esophagus 2. 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 Large amount of dark heme fluid/blacks blood/clots in the body of the stomach, partially suctioned out with endoscopy Physical Exam: GENERAL: Patient appears older than his stated age. Patient alert and cooperative. Currently on nasal cannula. VITAL SIGNS: Reviewed. Blood pressure stable at this time. Now off Levophed. HEENT: neck supple. Dry mouth LUNGS: Better air movement bilateral. Currently on 2 L per nasal cannula HEART: Atrial fibrillation rate around 100-120 ABDOMEN: Patient with ascites EXTREMITIES: Edema to the lower extremities improved NEUROLOGIC: Patient alert, cooperative. No focal deficits. No slurred speech. SKIN: As above. Significant edema to the lower extremity. Impression: Dyspnea secondary to acute on chronic CHF likely diastolic versus systolic complicated with anasarca, atrial fibrillation with RVR on chronic anticoagulation therapy, and Hypotension related to volume depletion and GI bleed Hepatitis C with suspected cirrhosis complicated with significant anasarca and lower extremity edema Acute on chronic renal disease stage III with hyponatremia Acute anemia with chronic disease with possible GI bleed Hypertension Hyperlipidemia CAD with prior stent Hypothyroidism Anxiety Slurred speech Peripheral vascular disease with history of bypass Noncompliance with follow-up and medication Plan: Dyspnea secondary to acute on chronic CHF likely diastolic versus systolic complicated with anasarca, atrial fibrillation with RVR on chronic anticoagulation therapy, and Hypotension related to volume depletion and GI bleedLA class D esophagitis/grade 2-3 varices with banding: Patient overall improved. Hemoglobin stable at 9.0. Patient has received 3 units of blood. EGD done on Saturday showed severe esophagitis with grade 2-3 varices. Banding was done. Patient remains on clear liquid diet. Patient also on Protonix drip, octreotide drip and Rocephin. Will discuss with GI about advancing his diet. Patient remains off IV Levophed. Patient with atrial fibrillation with rate around 100-120. Will increase metoprolol to 25 mg 1 pill twice daily for better rate control. Patient also on digoxin 125 mcg daily. Nephrology continues with diuresis. Patient on Lasix 20 mg IV 3 times a day. Continue to discuss with GI, cardiology and nephrology. Spoke at length with the patient and concerning plan of care. Patient wants to make decisions. wants patient to continue with full CODE STATUS. If his condition were to significantly decline or if he was on life support, he would not want to be on life support for a long period of time. Also discussed the possibility of long- term acute facility placement and skilled placement as the patient will likely require this prior to going home. Patient prefers to go home but he needs to understand that his condition is chronic with poor quality. I would highly recommend skilled placement or long-term acute care facility before he goes home. Social work to help in this process. Anticipate long-term acute care facility. Social work to discuss further with as she is making decisions for him. I will turn the service over to the hospitalist team tomorrow. I will go over plan of care with him. Hepatitis C with suspected cirrhosis complicated with significant anasarca and lower extremity edema: Patient is status post paracentesis with 2 L removed last week. So far cultures negative. Continue with above plan of care. Continue with GI recommendations. Acute on chronic renal disease stage III with hyponatremia: Renal function and hyponatremia improved. Continue IV diuretic therapy. Currently on Lasix 20 mg 3 times a day IV. 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 Hemoglobin stable. Continue to maintain hemoglobin above 7.5. GI recommends to hold Eliquis. Patient remains on Protonix drip, octreotide drip, and Rocephin IV. Will discuss with GI about advancing his diet Hypertension: Increase metoprolol to 25 mg 1 pill twice daily for better rate control. Patient off Levophed. CAD with prior stent: Continue with metoprolol. Hypothyroidism: Continue levothyroxine 50 mcg daily. Patient with poor compliance Anxiety: Continue with medication as needed. Slurred speech: Resolved. CT scan shows no evidence of stroke, patient is at risk for stroke. Continue with above plan of care. Peripheral vascular disease with history of bypass: Continue to hold Eliquis Noncompliance with follow-up and medication: Compliance with medication and follow-up addressed in detail. Will make sure patient is able to afford all his medications. Will need to make sure patient has close follow-up at discharge. Code Status: Full Code DVT prophylaxis: SCD. Continue to hold Eliquis and anticoagulation therapy due to EGD finding Advanced Care Planning-30 minutes: Discussed at length with plan of care. Will recommend long-term acute care facility versus skilled placement. Patient is wanting to make decisions. seems to be agreeable to long-term acute care facility. Social work to continue to help with this process.
--- NOTE | 2020-12-27 18:04 | P.PN ---
Subjective Date of Service: 12/27/20 Primary Care Provider: Dr. Baker; Cardiology-Dr. Rodrigez Chief Complaint: Shortness of breath, anemia, cirrhosis, ascites, anasarca Subjective: Improving (Hgb stable at 8.9 today. No symptoms of GI bleeding on PPI therapy, weaning off IV Octreotide.) Review of Systems Unremarkable General: Weakness, Malaise Physical Examination - Vital Signs Temperature: 97.9 F Blood Pressure: 121/94 Pulse: 116 Respirations: 15 Pulse Ox (%): 98 - Physical Exam General: Alert, In no apparent distress, Oriented x3, Cooperative HEENT: Atraumatic, Normocephalic, PERRLA, EOMI Neck: Supple Respiratory: Normal air movement Cardiovascular: Irregular heart rate/rhythm Gastrointestinal: Distended (tympany) Neurological: Normal speech - Studies Medications List Reviewed: Yes Assessment And Plan - Current Problems (Diagnosis) (1) Ascites Status: Acute (2) Anasarca Status: Acute (3) Congestive heart failure Status: Acute (4) Hepatitis C Status: Acute (5) Atrial fibrillation Status: Acute (6) Hypotension Status: Acute (7) Anemia Status: Acute (8) Cirrhosis of liver Status: Acute Qualifiers: Hepatic cirrhosis type: unspecified hepatic cirrhosis Ascites presence: with ascites Qualified Code(s): K74.60 - Unspecified cirrhosis of liver; R18.8 - Other ascites - Plan REC: 1) continue PPI, Ceftriaxone 2) FLs to GI soft / renal diet slowly 3) Gas-X / Simethicone bid 4) Wean IV Octreotide from 30 to 20 mcg/hour and wean off as able Physician Review Additional Text: COVID: negative Chest x-ray: COMPARISON: No comparisons FINDINGS: Portable technique limits examination quality. Mild interstitial pulmonary edema is seen. Linear opacities in the left lung base laterally probably represent atelectasis. The heart is prominent in size. A large hiatal hernia is likely present appear No displaced fractures. Venous doppler: COMPARISON: Lower Extremity Arterial Bilat dated 09/17/2017 TECHNIQUE: Real-time sonographic interrogation of the left and right lower extremity deep venous systems was performed. FINDINGS: Normal compressibility, flow augmentation, phasic flow and spontaneous flow is identified in both the left and right lower extremity deep venous systems. 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 IMPRESSION: No sonographic evidence of left or right lower extremity deep venous thrombosis. CT head: COMPARISON: Chest Abd Pelvis Wo Con dated 12/20/2020 TECHNIQUE: Axial 5 mm thick images of the head were obtained without IV contrast. All CT scans are performed using dose optimization technique as appropriate and may include automated exposure control or mA/KV adjustment according to patient size. FINDINGS: No intracranial hemorrhage, mass, edema or shift of mid-line structures. No acute cortical based infarction identified. No cortical edema or sulcal effacement. Diminished attenuation the left external capsule and insular cortex region is most likely remote. There are scattered chronic ischemic changes in the cerebral white matter. No abnormal extra-axial fluid collections. Mild to moderate for age atrophy changes are present. Ventricles are in proportion to the volume loss. Patient has dense arterial tree calcifications. Mastoid air cells and visualized portions of the paranasal sinuses are clear. No acute bony findings. IMPRESSION: No intracranial hemorrhage, mass or emergent intracranial CT finding. Atrophy and chronic ischemic changes are present with focal ischemic changes in the left external capsule and insular cortex region. Chronic ischemic changes can mask nonhemorrhagic acute infarction. MR brain followup can be obtained if there is ongoing concern for acute ischemia. CT chest/abdomen and pelvis: COMPARISON: No comparisons TECHNIQUE: Axial 5 millimeter thick images of the chest, abdomen and pelvis were obtained without IV contrast. Oral contrast was administered. All CT scans are performed using dose optimization technique as appropriate and may include automated exposure control or mA/KV adjustment according to patient size. FINDINGS: Fibrotic stranding and atelectasis changes are present in the lung bases. An 11 millimeter nodular focus abuts the right diaphragmatic pleura. No clearly malignant mass seen in the chest. There is an 8 centimeter thin-walled fluid collection in the medial right chest along the pleural margin. This extends from the hilum to the diaphragm. There is atelectasis along the lateral margin. Lateral left gutter atelectasis changes are present. Lateral lung base pneumonia is not excluded but lesser in likelihood. There is a trace amount of left pleural effusion. No pneumothorax. No pleural based mass. No chest wall mass or abnormal axillary lymphadenopathy seen. Mediastinal and hilar regions show no mass or lymphadenopathy. No significant cardiac finding. Liver is small with the left lobe prominent relative to the right. There is a pronounced nodularity of the liver capsule. A few parenchymal calcifications are present. This is an advanced cirrhotic liver pattern. No focal liver lesions seen though noncontrast imaging is diminished in sensitivity for lesion detection. No biliary tree dilatation. Gallbladder is difficult to distinguish from the ascites. Dilatation of the gallbladder is not suspected. Numerous calcifications present in a normal size spleen. No focal splenic lesion on noncontrast imaging imaging . Pancreas is poorly visualized. Primary pancreatic process is not suspected. No hydronephrosis or suspicious renal mass. Isodense masses and pyelonephritis cannot be excluded on non contrast imaging. No adrenal abnormalities. Urinary bladder is fully contracted around a Suárez catheter. No dilated bowel loops or focal ball bowel wall thickening. No free air or pneumatosis. Colonic diverticulosis is present. Much of the bowel is isodense to the ascites. Posterior distal rectal wall near the anus is poorly visualized. The oblique imaging angle through the distal rectum accentuates wall thickness. Patient has a very large volume of ascites filling the peritoneal cavity. No omental thickening seen. Fluid retention is present in the subcutaneous fatty tissues. No mass or bulky lymphadenopathy. Disc and bone degenerative changes are present not unremarkable for patient age. Dense arterial tree calcifications are present. IMPRESSION: Large volume of ascites present with advanced cirrhotic changes in the liver. No focal liver lesions seen though sensitivity is limited in the absence of IV contrast. No bowel obstruction, free air or emergent CT chest, abdomen or pelvis finding. Additional nonacute findings detailed in the body of the report. CT abdomen and pelvis imaging shows no significant or suspicious finding. Paracentesis: COMPARISON: No comparisons FINDINGS: Informed consent was obtained and time-out was performed. Patient's abdomen was prepped and draped in the usual sterile fashion. 1% lidocaine was used for local anesthetic purposes. A small skin incision was made. A paracentesis catheter was guided into the peroneal cavity under sonographic guidance. A small amount of fluid was sent for requested lab studies. A large volume paracentesis was performed. The patient tolerated the procedure well. Patient was administered IV albumin per protocol following the procedure. IMPRESSION: Successful ultrasound-guided paracentesis. EGD: Findings: 1. LA class D esophagitis in the lower esophagus 2. 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 Large amount of dark heme fluid/blacks blood/clots in the body of the stomach, partially suctioned out with endoscopy Physical Exam: GENERAL: Patient appears older than his stated age. Patient alert and cooperative. Currently on nasal cannula. VITAL SIGNS: Reviewed. Blood pressure stable at this time. Now off Levophed. HEENT: neck supple. Dry mouth LUNGS: Better air movement bilateral. Currently on 2 L per nasal cannula HEART: Atrial fibrillation rate around 100-120 ABDOMEN: Patient with ascites EXTREMITIES: Edema to the lower extremities improved NEUROLOGIC: Patient alert, cooperative. No focal deficits. No slurred speech. SKIN: As above. Significant edema to the lower extremity. Impression: Dyspnea secondary to acute on chronic CHF likely diastolic versus systolic complicated with anasarca, atrial fibrillation with RVR on chronic anticoagulation therapy, and Hypotension related to volume depletion and GI bleed Hepatitis C with suspected cirrhosis complicated with significant anasarca and lower extremity edema Acute on chronic renal disease stage III with hyponatremia Acute anemia with chronic disease with possible GI bleed Hypertension Hyperlipidemia CAD with prior stent Hypothyroidism Anxiety Slurred speech Peripheral vascular disease with history of bypass Noncompliance with follow-up and medication Plan: Dyspnea secondary to acute on chronic CHF likely diastolic versus systolic complicated with anasarca, atrial fibrillation with RVR on chronic anticoagulation therapy, and Hypotension related to volume depletion and GI bleedLA class D esophagitis/grade 2-3 varices with banding: Patient overall im proved. Hemoglobin stable at 9.0. Patient has received 3 units of blood. EGD done on Saturday showed severe esophagitis with grade 2-3 varices. Banding was done. Patient remains on clear liquid diet. Patient also on Protonix drip, octreotide drip and Rocephin. Will discuss with GI about advancing his diet. Patient remains off IV Levophed. Patient with atrial fibrillation with rate around 100-120. Will increase metoprolol to 25 mg 1 pill twice daily for better rate control. Patient also on digoxin 125 mcg daily. Nephrology continues with diuresis. Patient on Lasix 20 mg IV 3 times a day. Continue to discuss with GI, cardiology and nephrology. Spoke at length with the patient and concerning plan of care. Patient wants to make decisions. wants patient to continue with full CODE STATUS. If his condition were to significantly decline or if he was on life support, he would not want to be on life support for a long period of time. Also discussed the possibility of long- term acute facility placement and skilled placement as the patient will likely require this prior to going home. Patient prefers to go home but he needs to understand that his condition is chronic with poor quality. I would highly recommend skilled placement or long-term acute care facility before he goes home. Social work to help in this process. Anticipate long-term acute care facility. Social work to discuss further with as she is making decisions for him. I will turn the service over to the hospitalist team tomorrow. I will go over plan of care with him. Hepatitis C with suspected cirrhosis complicated with significant anasarca and lower extremity edema: Patient is status post paracentesis with 2 L removed last week. So far cultures negative. Continue with above plan of care. Continue with GI recommendations. Acute on chronic renal disease stage III with hyponatremia: Renal function and hyponatremia improved. Continue IV diuretic therapy. Currently on Lasix 20 mg 3 times a day IV. 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 Hemoglobin stable. Continue to maintain hemoglobin above 7.5. GI recommends to hold Eliquis. Patient remains on Protonix drip, octreotide drip, and Rocephin IV. Will discuss with GI about advancing his diet Hypertension: Increase metoprolol to 25 mg 1 pill twice daily for better rate control. Patient off Levophed. CAD with prior stent: Continue with metoprolol. Hypothyroidism: Continue levothyroxine 50 mcg daily. Patient with poor compliance Anxiety: Continue with medication as needed. Slurred speech: Resolved. CT scan shows no evidence of stroke, patient is at risk for stroke. Continue with above plan of care. Peripheral vascular disease with history of bypass: Continue to hold Eliquis Noncompliance with follow-up and medication: Compliance with medication and follow-up addressed in detail. Will make sure patient is able to afford all his medications. Will need to make sure patient has close follow-up at discharge. Code Status: Full Code DVT prophylaxis: SCD. Continue to hold Eliquis and anticoagulation therapy due to EGD finding Advanced Care Planning-30 minutes: Discussed at length with plan of care. Will recommend long-term acute care facility versus skilled placement. Patient is wanting to make decisions. seems to be agreeable to long-term acute care facility. Social work to continue to help with this process.
--- NOTE | 2020-12-27 18:26 | P.PN ---
Date of Service: 12/27/20 Vital Signs Temp Pulse Resp BP Pulse Ox 97.9 F 116 H 15 121/94 H 98 12/27/20 18:03 12/27/20 18:03 12/27/20 18:03 12/27/20 18:03 12/27/20 18:03 Microbiology Results 12/20/20 10:25 Blood - Blood Aerobic Blood Culture - Final No growth in 5 days. 12/20/20 10:25 Blood - Blood Anaerobic Blood Culture - Final No growth in 5 days. Assessment/ Plan: Nephrology No dyspnea. CORONEL +Edema No chest pain Generalized weakness No acute events overnight Vitals, medications, blood work and imaging reviewed in the chart General: Oriented x3, Cooperative HEENT: Atraumatic Neck: Supple Respiratory: Diminished Cardiovascular: Regular rate/rhythm, Edema Gastrointestinal: Hypoactive, Distended Musculoskeletal: No clubbing, No contractures Integumentary: No rashes, No cyanosis Neurological: Normal speech Greater than 30min patient care. Laboratory Data (last 24 hrs) 12/20/20 09:48: PT 15.4 H, INR 1.34 12/20/20 09:48: WBC 5.40, Hgb 8.4 L, Hct 25.1 L, Plt Count 159 12/20/20 09:48: Sodium 128 L, Potassium 4.7, BUN 23 H, Creatinine 1.53 H, Glucose 85, Magnesium 2.0, Total Bilirubin 1.6 H, AST 77 H, ALT 35, Alkaline Phosphatase 65 Imagings Data: EXAM DESCRIPTION: RAD - Chest Single View - 12/21/2020 5:59 am CLINICAL HISTORY: Follow up CHF COMPARISON: Chest Single View dated 12/20/2020; Chest Abd Pelvis Wo Con dated 12/20/2020 FINDINGS: Lines: None. Lungs: Mild increased opacity the left lung base. The lung volumes are slightly less as well. Pleural: Difficult to exclude a small left pleural effusion. Cardiac: Cardiomegaly. Bones: No acute fractures. Other: IMPRESSION: Mild increased left basilar opacities likely representing atelectasis. No definite edema identified . EXAM DESCRIPTION: CT - Chest Abd Pelvis Wo Con - 12/20/2020 12:56 pm CLINICAL HISTORY: ABDOMINAL DISTENTION, chest pain COMPARISON: No comparisons TECHNIQUE: Axial 5 millimeter thick images of the chest, abdomen and pelvis were obtained without IV contrast. Oral contrast was administered. All CT scans are performed using dose optimization technique as appropriate and may include automated exposure control or mA/KV adjustment according to patient size. FINDINGS: Fibrotic stranding and atelectasis changes are present in the lung bases. An 11 millimeter nodular focus abuts the right diaphragmatic pleura. No clearly malignant mass seen in the chest. There is an 8 centimeter thin-walled fluid collection in the medial right chest along the pleural margin. This extends from the hilum to the diaphragm. There is atelectasis along the lateral margin. Lateral left gutter atelectasis changes are present. Lateral lung base pneumonia is not excluded but lesser in likelihood. There is a trace amount of left pleural effusion. No pneumothorax. No pleural based mass. No chest wall mass or abnormal axillary lymphadenopathy seen. Mediastinal and hilar regions show no mass or lymphadenopathy. No significant cardiac finding. Liver is small with the left lobe prominent relative to the right. There is a pronounced nodularity of the liver capsule. A few parenchymal calcifications are present. This is an advanced cirrhotic liver pattern. No focal liver lesions seen though noncontrast imaging is diminished in sensitivity for lesion detection. No biliary tree dilatation. Gallbladder is difficult to distinguish from the ascites. Dilatation of the gallbladder is not suspected. Numerous calcifications present in a normal size spleen. No focal splenic lesion on noncontrast imaging imaging . Pancreas is poorly visualized. Primary pancreatic process is not suspected. No hydronephrosis or suspicious renal mass. Isodense masses and pyelonephritis cannot be excluded on non contrast imaging. No adrenal abnormalities. Urinary bladder is fully contracted around a Suárez catheter. No dilated bowel loops or focal ball bowel wall thickening. No free air or pneumatosis. Colonic diverticulosis is present. Much of the bowel is isodense to the ascites. Posterior distal rectal wall near the anus is poorly visualized. The oblique imaging angle through the distal rectum accentuates wall thickness. Patient has a very large volume of ascites filling the peritoneal cavity. No omental thickening seen. Fluid retention is present in the subcutaneous fatty tissues. No mass or bulky lymphadenopathy. Disc and bone degenerative changes are present not unremarkable for patient age. Dense arterial tree calcifications are present. IMPRESSION: Large volume of ascites present with advanced cirrhotic changes in the liver. No focal liver lesions seen though sensitivity is limited in the absence of IV contrast. No bowel obstruction, free air or emergent CT chest, abdomen or pelvis finding. Additional nonacute findings detailed in the body of the report. CT abdomen and pelvis imaging shows no significant or suspicious finding. EXAM DESCRIPTION: US - Extrem Venous W Compress Deepak - 12/20/2020 12:22 pm CLINICAL HISTORY: SWELLING Bilateral leg edema and swelling. COMPARISON: Lower Extremity Arterial Bilat dated 09/17/2017 TECHNIQUE: Real-time sonographic interrogation of the left and right lower extremity deep venous systems was performed. FINDINGS: Normal compressibility, flow augmentation, phasic flow and spontaneous flow is identified in both the left and right lower extremity deep venous systems. 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 IMPRESSION: No sonographic evidence of left or right lower extremity deep venous thrombosis. Conclusions/Impression: ADILENE in the setting of hypotension & anasarca CKD III with proteinuria -Lasix 20mg IV q8h as tolerated -Start Spironolactone daily with holding parameters Hyponatremia -Continue Lasix IV Hyperkalemia/ Hypokalemia -Continue Lasix -Replete potassium per protocol Hypotension -IV Albumin prn -Vasopressor therapy as needed Diastolic CHF, A/C Anasarca -Continue Lasix -Low sodium diet Severe malnutrition Hypoalbuminemia -Give IV Albumin prn -Recommend protein supplementation Anemia in chronic illness -Transfuse PRBC as needed -Retacrit prn Liver cirrhosis with ascites & varices HCV -Monitor LFT -GI following. Continue Octreotide The reported that he is leaving [facility] on hospice.
--- NOTE | 2021-01-01 19:25 | P.DS ---
Discharge Date: 12/27/20 Primary Care Provider: Dr. Baker; Cardiology-Dr. Rodrigez Disposition: HOSPICE-HOME Discharge Condition: FAIR Reason for Admission: Shortness of breath, anemia, cirrhosis, ascites, anasarca - Problems (1) Cirrhosis of liver Status: Acute Qualifiers: Hepatic cirrhosis type: unspecified hepatic cirrhosis Ascites presence: wit h ascites Qualified Code(s): K74.60 - Unspecified cirrhosis of liver; R18.8 - Other ascites (2) Chronic kidney disease Status: Acute (3) Generalized weakness Status: Acute Brief History of Present Illness: Patient is a 70-year-old male with history of hepatitis C, GERD with hiatal hernia, hypertension, chronic renal disease, atrial fibrillation on chronic anticoagulation therapy, CAD with prior stent, peripheral vascular disease, and COPD. Patient presented with increasing shortness of breath. This has been ongoing but worse over the past several days. He has been having increased weakness and shortness of breath with exertion. Patient admits that he has been without medication for quite some time. He has not followed up with his PCP or cardiology in over a year. This has been difficult to get his medications. Patient previously on metoprolol, Eliquis, Lasix, hydrochlorothiazide, Lipitor, levothyroxine and lorazepam. reports some slurred speech this morning but this resolved quickly. Increase palpitations noted. He came to the ER for further evaluation. In the ER patient was evaluated. Patient found to have atrial fibrillation with RVR with rate in the 150s. Patient given IV metoprolol with improvement. Quin ent found to be very ascitic with anasarca. Patient given IV Lasix in the emergency room. White count 5.4, hemoglobin 8.4. Plate count 159. Sodium 128, potassium 4.7. BUN of 23, creatinine 1.53 with a GFR 45. Glucose 85. Total bilirubin 1.6, AST 77. ALT 35. Troponin negative. Procalcitonin negative. CT head showed no acute abnormality. Chest x-ray showed pulmonary edema. Venous Doppler was negative. Patient was admitted for treatment. Patient admits not taking medication for quite some time. He has not followed up closely with nephrology or cardiology. Hospital Course: Patient has not really improved much. Family has decided to proceed with hospice care. EMS to transport. Vital Signs/Physical Exam: Temp Pulse Resp BP Pulse Ox 97.9 F 116 H 15 121/94 H 98 12/27/20 18:03 12/27/20 18:03 12/27/20 18:03 12/27/20 18:03 12/27/20 18:03 General: Alert, In no apparent distress Laboratory Data at Discharge: WBC 5.00 K/uL (4.3-10.9) 12/27/20 04:05 Hgb 8.9 g/dL (13.6-17.9) L 12/27/20 04:05 Hct 26.9 % (39.6-49.0) L 12/27/20 04:05 Plt Count 91 K/uL (152-406) L 12/27/20 04:05 PT 15.4 SECONDS (9.5-12.5) H 12/20/20 09:48 INR 1.34 12/20/20 09:48 Sodium 139 mmol/L (136-145) 12/27/20 04:05 Potassium 3.0 mmol/L (3.5-5.1) L 12/27/20 04:05 BUN 21 mg/dL (7-18) H 12/27/20 04:05 Creatinine 1.26 mg/dL (0.55-1.3) 12/27/20 04:05 Glucose 125 mg/dL (74-106) H 12/27/20 04:05 Uric Acid 8.4 mg/dL (3.5-7.2) H 12/23/20 04:05 Phosphorus 3.0 mg/dL (2.5-4.9) 12/23/20 04:05 Magnesium 1.8 mg/dL (1.8-2.4) 12/27/20 04:05 Total Bilirubin 2.0 mg/dL (0.2-1.0) H 12/27/20 04:05 AST 48 U/L (15-37) H 12/27/20 04:05 ALT 20 U/L (12-78) 12/27/20 04:05 Alkaline Phosphatase 32 U/L (45-117) L 12/27/20 04:05 Troponin I < 0.02 ng/mL (0.0-0.045) 12/20/20 16:41 Triglycerides 45 mg/dL (<150) 12/21/20 04:11 Cholesterol 88 mg/dL (<200) 12/21/20 04:11 HDL Cholesterol 30 mg/dL (40-60) L 12/21/20 04:11 Cholesterol/HDL Ratio 2.93 12/21/20 04:11 Home Medications: Albuterol Sulfate [Proair Digihaler] 2 puff PRN PRN 12/20/20 Apixaban [Eliquis] 5 mg PO BID 12/20/20 Atorvastatin Calcium [Lipitor] 1 tab DAILY 12/20/20 Cholecalciferol (Vitamin D3) [Vitamin D3] 2,000 unit PO BID 12/20/20 Levothyroxine Sodium [Synthroid] 0.05 mg PO BEDTIME 12/20/20 RX: Benzonatate 100 mg PO TID PRN 12/20/20 RX: Gabapentin 300 mg PO DAILY 12/20/20 RX: LORazepam [Ativan*] 1 tab .ROUTE DAILYPRN PRN 12/20/20 RX: Metoprolol Tartrate 50 mg PO BID 12/20/20 RX: hydroCHLOROthiazide [Hydrochlorothiazide] 25 mg PO QOD QID 12/20/20 Physician Discharge Instructions: Plan to proceed to hospice care in Followup: NONE,NONE [Primary Care Provider] - Time spent managing pt's care (in minutes): 35
== END 2020-12-27 15:45 | disposition hospice, home (50) | DRG 291 ==
LOC: ER 09:25 → ERHOLD 12:54
PROVIDERS: ADMIT Family Medicine; ATTEND Family Medicine
PROC: 30233N1 Transfusion of Nonautologous Red Blood Cells into Peripheral Vein, Percutaneous Approach (ICD-10-PCS; 2020-12-21)
PROC: 02HV33Z Insertion of Infusion Device into Superior Vena Cava, Percutaneous Approach (ICD-10-PCS; 2020-12-21)
PROC: 0W9G3ZX Drainage of Peritoneal Cavity, Percutaneous Approach, Diagnostic (ICD-10-PCS; 2020-12-21)
PROC: 06L38CZ Occlusion of Esophageal Vein with Extraluminal Device, Via Natural or Artificial Opening Endoscopic (ICD-10-PCS; principal; 2020-12-23 14:00)
DX: I13.0 Hypertensive heart and chronic kidney disease with heart failure and stage 1 through stage 4 chronic kidney disease, or unspecified chronic kidney disease (principal); E43 Unspecified severe protein-calorie malnutrition; I85.01 Esophageal varices with bleeding; I50.23 Acute on chronic systolic (congestive) heart failure; K20.91 Esophagitis, unspecified with bleeding; N17.9 Acute kidney failure, unspecified; E87.1 Hypo-osmolality and hyponatremia; D62 Acute posthemorrhagic anemia; B17.10 Acute hepatitis C without hepatic coma; R18.8 Other ascites; I48.91 Unspecified atrial fibrillation; N18.30 Chronic kidney disease, stage 3 unspecified; E87.5 Hyperkalemia; E87.6 Hypokalemia; I95.9 Hypotension, unspecified; Z68.26 Body mass index [BMI] 26.0-26.9, adult; E88.09 Other disorders of plasma-protein metabolism, not elsewhere classified; K74.60 Unspecified cirrhosis of liver; I25.10 Atherosclerotic heart disease of native coronary artery without angina pectoris; E03.9 Hypothyroidism, unspecified; F41.9 Anxiety disorder, unspecified; R47.81 Slurred speech; Z95.5 Presence of coronary angioplasty implant and graft; I73.9 Peripheral vascular disease, unspecified; Z79.01 Long term (current) use of anticoagulants; Z91.14 Patient's other noncompliance with medication regimen; Z91.19 Patient's noncompliance with other medical treatment and regimen; Z20.822 Contact with and (suspected) exposure to COVID-19
CPT/HCPCS: 36415; 36430; 36569; 49083; 51702; 70450; 71045; 71250; 74018; 74176; 80048; 80053; 80061; 80076; 81001; 81003; 81015; 82042; 82140; 82150; 82550; 82553; 82570; 83605; 83735; 83880; 83930; 83935; 84100; 84132; 84145; 84156; 84157; 84300; 84439; 84443; 84484; 84550; 85014; 85018; 85025; 85049; 85610; 86850; 86870; 86880; 86900; 86901; 86922; 87040; 87070; 87086; 87088; 89050; 93005; 93306; 93970; 94010; 97110; 97163; 97530; 99285; C9113; J0171; J0696; J1160; J1170; J1940; J2354; J2405; J2704; J3475; J3480; J7030; J7040; J7050; J7060; J7605; P9016; P9035; P9045; P9047; P9100; Q5106; U0003